=== PATIENT | male | born 1990 | race Two or more races ===

== ENCOUNTER 2021-04-08 12:36 | Emergency (ER) | payer OTHER, SELFPAY ==
[2021-04-08 12:44] VITALS: BP 136/75; PULSE 87; RESP 18; TEMP 36.8; O2SAT 97; BMI 42.5
--- NOTE | 2021-04-08 15:26 | ED_ITS ---
HPI - General Adult General Chief complaint: Skin/Abscess/Foreign Body Stated complaint: lump lt breast Time Seen by Provider: 04/08/21 15:25 Source: patient Mode of arrival: ambulatory Limitations: no limitations History of Present Illness HPI narrative: 30-year-old male is here today for complaining of left breast tenderness. Patient reports that he was seen in clinic in [facility] last week. 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 Patient denies any insect bite, hair follicle, piercing. He reports that the area last week was a very small about 3 centimetres just below the nipple. Today the area is much larger altogether 8 x 10 cm approximately. There is no drainage however he reports increased tenderness, redness and swelling. Patient denies fever, he is not diabetic. Patient denies any skin infections in the past. He was placed on Augmentin and was taking as ordered. Patient denies any other concerns. Related Data Previous Rx's Medication Instructions Recorded doxycycline hyclate 100 mg tablet 100 mg PO BID #20 tab 04/08/21 ibuprofen 600 mg tablet 600 mg PO Q8H PRN #20 tab 04/08/21 oxycodone 5 mg tablet 5 mg PO Q4-6H PRN #5 tab 04/08/21 Allergies Allergy/AdvReac Type Severity Reaction Status Date / Time vancomycin Allergy Itching Verified 04/08/21 17:32 Review of Systems Review of Systems: Constitutional : No Weight loss, No Fever, No Chills, No Night Sweats, No Fatigue, No Malaise ENT/Mouth : No Hearing loss, No Ear Pain, No Nasal Congestion, No Sinus Pain, No Hoarseness, No sore throat, No Rhinorrhea, No Swallowing Difficulty Eyes: No Eye Pain, No Swelling, No Redness, No Foreign Body, No Discharge, No Vision Changes Cardiovascular : No Chest Pain, No SOB, No Dyspnea on Exertion, No Orthopnea, No Edema, No Palpitations Respiratory : No Cough, No Sputum, No Wheezing, No Smoke Exposure, No Dyspnea Gastrointestinal : No Nausea, No Vomiting, No Diarrhea, No Constipation, No abdominal Pain, No Hematochezia, No Melena Genitourinary : no irregular bleeding, No Dysuria, No Urinary Frequency, No Hematuria, No Urinary Incontinence, No Urgency, No Flank Pain, No Urinary Flow Changes, No Hesitancy Musculoskeletal : No joint pain, No Myalgias, No Joint Swelling Skin : No Skin Lesions, No rash, left breast redness and swelling and tenderness Neuro : No Weakness, No Numbness, No Paresthesias, No Loss of Consciousness, No Dizziness, No Headache Yes all other systems are reviewed and are negative PMFSH Past Medical History Surgical History (Updated 04/08/21 @ 12:44 by Catrachita Chand RN) History of bladder surgery S/P appendectomy Social History Social History Alcohol intake: never Patient Tobacco Use Status: Never used Tobacco Physical Exam Vital Signs: Vital Signs: Last Vital Signs Temp 98.8 F 04/08/21 17:31 Pulse 66 04/08/21 17:31 Resp 16 04/08/21 17:31 BP 121/65 04/08/21 17:31 Pulse Ox 97 04/08/21 17:31 Body Mass Index 42.5 Const: General: healthy appearing, no acute distress and well developed Nutritional Appearance: well nourished Orientation/consciousness: patient oriented x3 HENMT: Head: Yes normal to inspection, Yes normocephalic and Yes atraumatic Neck: Neck: Yes normal visual inspection, Yes full ROM and Yes trachea midline Thyroid: Thyroid normal Chest: Other: Breast/axilla inspection: abnormal inspection of the breast (Left breast redness and swelling) Resp: Auscultation: clear to auscultation bilaterally Cardio: Rate: regular rate Rhythm: regular rhythm GI: Inspection: Yes normal to inspection and No distended Palpation (GI): No hepatosplenomegaly present Auscultation: normal bowel sounds Skin: Other: Left breast abscess General skin exam: elasticity normal, turgor normal and dry skin Neuro: General: patient oriented x3 Course Course Course Narrative: 30-year-old male is here today for left breast pain and tenderness. Treated last week with Augmentin for left breast abscess. Patient reports that the abscess was significantly much smaller. Area is getting bigger more inflamed and more tender. Denies any piercing, her follicle, injury. 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 Patient denies subjective fevers, malaise, diabetes. He does not look toxic. We will ordered blood cultures, will do bedside ultrasound, CBC, BMP. Medicate him for pain and will start him on Vanco. Most likely this is MRSA as a commanded was not effective. Reevaluation(s) Reevaluation #1: Bedside ultrasound done significant abscess found we will send the pictures of the abscess as well as the ultrasound to on-call surgeon. Reevaluation #2: Spoke with on-call surgeon Dr. Tavera who will be coming to I/D the the abscess. Patient was moved to main ED. Reevaluation #3: On-call provider at the bedside. I/D in process. Moderate amount of drainage removed. Area will be packed. Patient will be medicated with doxycycline. Culture of the aspiration will be sent to lab. Blood cultures canceled. Patient will be sent home to follow-up with wound care Consultations Consultation #1: Patient is having allergic reaction to vancomycin. IV infusion stopped. Benadryl ordered. Procedures Procedure Narrative Procedure Narrative: Bedside ultrasound done significant abscess found. Copy of the picture sent to surgeon on-call. Spoke to surgeon who will come in and drain the abscess. Medical Decision Making Lab Data Result diagrams: 04/08/21 16:14 04/08/21 16:14 Labs: Lab Results 04/08/21 04/08/21 Range/Units 16:14 16:14 WBC 9.5 (4.8-10.8) X10*3/uL RBC 5.46 (4.60-5.80) X10*6/uL Hgb 14.9 (14.0-18.0) g/dl Hct 43.4 (42-52) % MCV 79.5 L (80-98) fL MCH 27.3 (27.0-33.0) pg MCHC 34.3 (31.0-36.0) g/dl RDW 14.3 (11.0-16.0) % Plt Count 277 (160-400) X10*3/uL MPV 9.6 (9.4-12.4) fL Immature Gran % (Auto) 0.2 (0.0-0.4) % Neut % (Auto) 62.6 (45-73) % Lymph % (Auto) 27.8 (20-40) % [place] % (Auto) 8.3 (2-11) % Eos % (Auto) 0.8 (0-4) % Baso % (Auto) 0.3 (0-2) % Lymph # (Auto) 2.6 (1.2-4.9) X10*3/uL [place] # (Auto) 0.8 (0.1-1.2) X10*3/uL Eos # (Auto) 0.1 (0.0-0.4) X10*3/uL Baso # (Auto) 0.0 (0.0-0.2) X10*3/uL Abs Immat Gran (auto) 0.02 (0.00-0.03) X10*3/uL Absolute Neuts (auto) 6.0 (2.0-8.3) X10*3/uL Absolute Nucleated RBC 0.000 (0.0-0.012) X10*3/uL Nucleated RBC % (auto) 0.0 (0.0-0.2) /100WBC Sodium 136 (135-145) mmol/L Potassium 3.7 (3.3-5.1) mmol/L Chloride 103 (96-108) mmol/L Carbon Dioxide 25 (22-29) mmol/L Anion Gap 12 (12-20) BUN 8 L (9-16) mg/dL Creatinine 0.83 (0.5-1.4) mg/dL Estim Creat Clear Calc 145.5 Estimated GFR > 60 Random Glucose 116 H (60-115) mg/dL Calcium 9.3 (8.4-10.2) mg/dL Discharge Plan Discharge Clinical Impression: Breast abscess in male Cellulitis Qualifiers: Site of cellulitis: other site Qualified Code(s): L03.818 - Cellulitis of other sites Patient Disposition: Home, Self-Care Instructions: Abscess (ED), Abscess Incision and Drainage (DC) Additional Instructions: You were seen here today for infection of the left breast. The abscess was drained and packed. You were started on antibiotic. Please follow-up with Wound Center on Saturday. You may return to emergency department if you symptoms will get worse or if you experience any additional concerning symptoms. The drainage was sent to lab to get tested. You might get phone call if the antibiotic will need be changed. Please make sure that you finish all of the antibiotics. Observe for increased redness, follow older, pain, fever or chills. Prescriptions: New doxycycline hyclate 100 mg tablet 100 mg PO BID Qty: 20 RF: 0 ibuprofen 600 mg tablet 600 mg PO Q8H PRN (Reason: pain) Qty: 20 RF: 0 oxycodone 5 mg tablet 5 mg PO Q4-6H PRN (Reason: pain) Qty: 5 RF: 0 Referrals: Cristela Tavera MD [Physician] - 2 days Stand Alone Forms: Work/School Release Interventions: ED Discharge Assessment Last Done: 04/08/21 17:51 Discharge Date/Time: 04/08/21 17:57
[2021-04-08 16:19] LABS: MANUAL DIFF FLAG NO
[2021-04-08 16:20] LABS: Basophils Percent Auto 0.3 % (0-2); Eosinophils Absolute Auto 0.1 X10*3/uL (0.0-0.4); Eosinophils Percent Auto 0.8 % (0-4); Hematocrit 43.4 % (42-52); Hemoglobin 14.9 g/dl (14.0-18.0); Imm Gran Abs Auto 0.02 X10*3/uL (0.00-0.03); Imm Gran Pct Auto 0.2 % (0.0-0.4); Lymphocytes Absolute Auto 2.6 X10*3/uL (1.2-4.9); Lymphocytes Percent Auto 27.8 % (20-40); Mean Corpuscular HGB Conc 34.3 g/dl (31.0-36.0); Mean Corpuscular Hemoglobin 27.3 pg (27.0-33.0); Mean Corpuscular Volume 79.5 fL (80-98); Mean Platelet Volume 9.6 fL (9.4-12.4); Monocytes Absolute Auto 0.8 X10*3/uL (0.1-1.2); Monocytes Percent Auto 8.3 % (2-11); Neutrophils Percent Auto 62.6 % (45-73); Platelet Count 277 X10*3/uL (160-400); Red Blood Count 5.46 X10*6/uL (4.60-5.80); Red Cell Distribution Width 14.3 % (11.0-16.0); White Blood Count 9.5 X10*3/uL (4.8-10.8)
[2021-04-08] MEDS: vancomycin HCL 1,500 MG in 0.9 % Sodium Chloride 500 ML 333.33 MG IV (16:28)
[2021-04-08] MEDS: Ketorolac Tromethamine 15 MG/ML VIAL 30 MG IVPUSH (16:28)
[2021-04-08] MEDS: Lidocaine HCl 2%/Epi 1:100,000 20 ML VIAL INFILTRATI (16:29)
[2021-04-08 16:37] LABS: Anion Gap 12 (12-20); Blood Urea Nitrogen 8 mg/dL (9-16); Calcium 9.3 mg/dL (8.4-10.2); Carbon Dioxide 25 mmol/L (22-29); Chloride 103 mmol/L (96-108); Creatinine Clr Calc Pharmacy 145.5; Estimated Glomerular Filt Rate > 60; Glucose Random 116 mg/dL (60-115); Potassium 3.7 mmol/L (3.3-5.1); Sodium 136 mmol/L (135-145)
--- NOTE | 2021-04-08 16:45 | PC.NURSE ---
iv inserted, labs drawn, pt medicated for pain, iv antibiotics running, surgeon at bedside to do I&D.
--- NOTE | 2021-04-08 17:09 | PM.CNGS ---
History of Present Illness Consult details Consult date: 04/08/21 Requesting physician: Roberta Mckenzie Narrative: 30 year old male with left breast abscess -? etiology - no puiercing no injections etc. was treated with po augmentin for a week but worsened and now here with large area of cellulitis and abscess. He has not had MRSA before. u/s here shows abscess. no fevers or chills. complains of pain in the area PMFSH Past Medical History Cognitive capacity: noncontributory Family History Pertinent family history: noncontributory Surgical History Surgical History (Updated 04/08/21 @ 12:44 by Catrachita Chand RN) History of bladder surgery S/P appendectomy Social History Social History Alcohol intake: never Patient Tobacco Use Status: Never used Tobacco Use of substances other than those prescribed or required for medical reasons: No Advance Directives: No Meds Allergies Allergy/AdvReac Type Severity Reaction Status Date / Time No Known Allergies Allergy Verified 04/08/21 12:43 Active Medications: Current Medications Vancomycin HCl 1,500 mg/ (Sodium Chloride) 500 mls @ 333.333 mls/hr IV ONCE ONE Stop: 04/08/21 17:23 Last Admin: 04/08/21 16:28 Dose: 333.33 mls/hr Documented by: Physical Exam Vital Signs: Vital Signs: Last Vital Signs Temp 98.2 F 04/08/21 12:44 Pulse 87 04/08/21 12:44 Resp 18 04/08/21 12:44 BP 136/75 04/08/21 12:44 Pulse Ox 97 04/08/21 12:44 Body Mass Index 42.5 Skin: Other: left nipple area abscess with surrounding cellulits tender - [id number] Results Labs Result diagrams: 04/08/21 16:14 04/08/21 16:14 Labs: Abnormal lab results 04/08/21 04/08/21 Range/Units 16:14 16:14 MCV 79.5 L (80-98) fL BUN 8 L (9-16) mg/dL Random Glucose 116 H (60-115) mg/dL Short CBC 04/08/21 Range/Units 16:14 WBC 9.5 (4.8-10.8) X10*3/uL Hgb 14.9 (14.0-18.0) g/dl Hct 43.4 (42-52) % Plt Count 277 (160-400) X10*3/uL BMP 04/08/21 16:14 Sodium 136 Potassium 3.7 Chloride 103 Carbon Dioxide 25 BUN 8 L Creatinine 0.83 Calcium 9.3 All other labs normal. Assessment and Plan (1) Breast abscess in male: Status: Acute 30 year old male with left breast abscess worsened on augmentin ? MRSA infection - Iand D at bedside with cx of purulent drainage. plan to keep packing in until saturday when he can remove it in the shower and just cover with gauze. he can replace the overlying dressing daily and as needed. take full 10 day course of antibx - treat as expecting MRSA infection fu cx results can fu in wound care or general surgery office sponge bath until saturday when showers and get the area wet and remove the packing. Procedures Date of Service Date of Service: 04/08/21 Abscess I/D Consent for Procedure: Elective - informed consent obtained Site: chest Side (if applicable): left Sedation/analgesia: none Anesthetic used: with epi Technique: incised with #11 blade Amount of fluid (mL): 8 Irrigation: Yes Packing used?: plain Additional comments: some purulent drainage obtained and irrigated and probed under breast so cavity was clean - packing inserted there was a second area opened and probed laterally but not much purulence compared to the above incision area in the nipple - areolar junction region complex abscess drainage
[2021-04-08] MEDS: diphenhydrAMINE HCL 50 MG/ML VIAL IVPUSH (17:30)
--- NOTE | 2021-04-08 17:30 | PC.NURSE ---
pt reporting itchy head while receiving Vanco, infusion stopped and Benadryl given per [facility] [employer]. Denies other sx or SOB. VSS
[2021-04-08 17:31] VITALS: BP 121/65; PULSE 66; RESP 16; TEMP 37.1; O2SAT 97
== END 2021-04-08 17:57 | disposition home or self-care (01) ==
PROVIDERS: Nurse Practitioner Family; Emergency Provider Emergency Medicine
DX: N61.1 Abscess of the breast and nipple (principal); Z79.899 Other long term (current) drug therapy
CPT/HCPCS: 36415; 80048; 85025; 87040; 87071; 87073; 87077; 87186; 87205; 96365; 96375; 99284; J1200; J1885; J3370

== ENCOUNTER 2021-09-07 08:11 | Emergency (ER) | payer MEDICAID, SELFPAY ==
[2021-09-07 08:15] VITALS: BP 110/70; PULSE 77; RESP 16; TEMP 36.4; O2SAT 96; BMI 41.6
--- NOTE | 2021-09-07 09:25 | ED_ITS ---
HPI - Nausea/Vomiting/Diarrhea General Chief complaint: Nausea/Vomiting/Diarrhea Stated complaint: diarrhea,headache Time Seen by Provider: 09/07/21 09:21 Source: patient Mode of arrival: ambulatory Limitations: no limitations History of Present Illness HPI Narrative: 31-year-old male previously healthy here with reports of headache, body aches, diarrhea, runny nose, cough with waking. Patient denies any fever, vomiting, abdominal pain, difficulty breathing or chest pain. Associated nausea: No Related Data Previous Rx's Medication Instructions Recorded doxycycline hyclate 100 mg tablet 100 mg PO BID #20 tab 04/08/21 ibuprofen 600 mg tablet 600 mg PO Q8H PRN #20 tab 04/08/21 oxycodone 5 mg tablet 5 mg PO Q4-6H PRN #5 tab 04/08/21 ibuprofen 600 mg tablet 600 mg PO TID PRN #20 tab 09/07/21 oseltamivir 75 mg capsule (Tamiflu) 75 mg PO Q12H 5 Days #10 cap 09/07/21 Allergies Allergy/AdvReac Type Severity Reaction Status Date / Time vancomycin Allergy Itching Verified 04/08/21 17:32 Review of Systems Review of Systems: Yes all other systems are reviewed and are negative Constitutional: Constitutional: Reports no additional constitutional com plaints, Reports body ache(s), Denies chills, Denies fever(s), Reports headache(s) and Denies weakness Eyes: Eyes: Reports no additional eye complaints and Denies change in vision ENT: Reports system reviewed and no additional complaints, except as documented, Denies dizziness, Reports headache(s), Denies nasal congestion, Reports nasal discharge and Denies neck pain Cardiovascular: Cardiovascular: Reports no additional cardiovascular complaints, Denies chest pain, Denies leg edema and Denies dyspnea Respiratory: Respiratory: Reports no additional respiratory complaints, Reports cough and Denies dyspnea Gastrointestinal: Gastrointestinal: Reports no additional gastrointestinal complaints, Denies abdominal pain, Reports diarrhea, Denies nausea and Denies vomiting Genitourinary: Genitourinary: Denies urinary incontinence Musculoskeletal: Musculoskeletal: Reports no additional musculoskeletal complaints, Denies back pain, Denies arthralgias, Denies joint swelling, Denies neck pain, Denies numbness and Denies tingling Integumentary/Breasts: Skin/Breast: Reports system reviewed and no additional complaints, except as docu and Denies rash Neurologic: Reports system reviewed and no additional complaints, except as documented, Denies Abnormal speech present, Denies dizziness, Reports headache(s), Denies numbness, Denies tingling and Denies weakness PMFSH Past Medical History Attestation statement: The following information was validated with the patient. Source: old records reviewed and nursing notes reviewed Surgical History History of bladder surgery S/P appendectomy Social History Social History Alcohol intake: never Patient Tobacco Use Status: Never used Tobacco Advance Directives: No Advance Directives Information Provided: No Physical Exam Vital Signs: Vital Signs: Last Vital Signs Temp 97.5 F 09/07/21 08:15 Pulse 77 09/07/21 08:15 Resp 16 09/07/21 08:15 BP 110/70 09/07/21 08:15 Pulse Ox 96 09/07/21 08:15 BMI result Body Mass Index 41.6 Const: General: cooperative, healthy appearing, comfortable and no acute distress Orientation/consciousness: patient oriented x3 Limitations: no limitations HEENT: Head: Yes normal to inspection Ears: hearing grossly normal bilaterally and TM's normal bilaterally General nose exam: Normal external nose present Face and sinus: Yes normal facial exam Mouth: Normal oral and palatal mucosa present Throat: Yes posterior oropharynx normal, Yes tonsils normal and Yes uvula midline Eyes: General: appearance normal, both eyes and all related structures Pupils: Equal, round and reactive pupils present Neck: Neck: Yes normal visual inspection, Yes full ROM and Yes no lymphadenop athy Chest: Chest palpation & inspection: normal inspection of the chest Resp: Effort & Inspection: normal respiratory effort Auscultation: clear to auscultation bilaterally Cardio: Rate: regular rate Rhythm: regular rhythm Peripheral pulses: Peripheral pulses 2+ throughout GI: Inspection: Yes normal to inspection Palpation (GI): Soft to palpation and nontender Auscultation: normal bowel sounds Back/Spine/Pelvis: Thoracic/Lumbar Spine: thoracic and lumbar spine normal to inspection Skin: General skin exam: no rashes or lesions noted Neuro: General: patient oriented x3, no focal motor deficits and normal sensation to monofilament Cranial nerves: Yes Equal, round and reactive pupils present Cognition (Neuro): normal cognition Speech: No Abnormal speech present Gait exam (Neuro): Normal gait present Motor exam (neuro): 5/5 motor strength present throughout Extrem: General: Yes normal to inspection Course Course Course Narrative: 31-year-old male here with flu-like symptoms since waking. Will check flu and COVID screening. MDM - Nausea/Vomiting/Diarrhea Medical Records Attestation: I reviewed the patient's medical records. Lab Data Attestation: I reviewed the patient's lab results. Labs: Lab Results 09/07/21 09/07/21 Range/Units 09:48 09:48 COVID-19 ([facility]) Negative (Negative) COVID-19 Clin Com See Note Influenza Type A ([facility]) Positive A (Negative) Influenza Type B ([facility]) Negative (Negative) Influenza A & B Note See Note Discharge Plan Discharge Clinical Impression: Influenza Patient Disposition: Home, Self-Care Instructions: Influenza (DC) Additional Instructions: COVID testing is negative Increase fluids, rest Take Motrin or Tylenol as needed for pain or fever Prescriptions: New oseltamivir [Tamiflu] 75 mg capsule 75 mg PO Q12H 5 Days Qty: 10 0RF ibuprofen 600 mg tablet 600 mg PO TID PRN (Reason: fever or pain) Qty: 20 0RF No Action doxycycline hyclate 100 mg tablet 100 mg PO BID Qty: 20 0RF ibuprofen 600 mg tablet 600 mg PO Q8H PRN (Reason: pain) Qty: 20 0RF oxycodone 5 mg tablet 5 mg PO Q4-6H PRN (Reason: pain) Qty: 5 0RF Rx Instructions: Patient may request fewer tablets than prescribed Referrals: [facility] [Primary Care Provider] - 5 days Stand Alone Forms: Work/School Release
[2021-09-07 10:09] LABS: Influenza A Positive (Negative); Influenza B2 Negative (Negative)
[2021-09-07] MEDS: Ibuprofen 600 MG TABLET PO (10:24)
[2021-09-07 10:28] LABS: COVID-19 Test Negative (Negative); IDNOW Serial# 55D5AD1C
== END 2021-09-07 10:48 | disposition home or self-care (01) ==
PROVIDERS: Nurse Practitioner Family; Emergency Provider Emergency Medicine
DX: J11.1 Influenza due to unidentified influenza virus with other respiratory manifestations (principal); R51.9 Headache, unspecified; Z20.822 Contact with and (suspected) exposure to COVID-19
CPT/HCPCS: 87502; 87635; 99283; 99284

== ENCOUNTER 2022-01-19 07:59 | Emergency (ER) | payer MEDICAID, SELFPAY ==
--- NOTE | ~2022-01-19 | CT_ITS ---
EXAMINATION: CT ABDOMEN AND PELVIS WITHOUT CONTRAST CLINICAL INFORMATION: Right-sided abdominal pain. COMPARISON: None TECHNIQUE: Multidetector volumetric imaging was performed from the superior aspect of the liver through the pubic symphysis. Sagittal and coronal reformatted images were obtained on the technologist's workstation. Lack of intravenous and oral contrast limits visceral evaluation. This CT examination was performed using dose optimization techniques as appropriate, variously including the following: *Automated exposure control *Adjustment of mA and/or kV according to patient size (this includes techniques or standardized protocols for targeted exams where dose is matched to indication/reason for exam; i.e. extremities or head) *Use of iterative reconstruction technique DLP: 848 mGy-cm FINDINGS: LUNG BASES: The visualized lung bases are unremarkable. LIVER, GALLBLADDER, AND BILIARY TREE: Diffuse decreased hepatic attenuation without focal abnormality. Status post cholecystectomy. PANCREAS: Unremarkable. SPLEEN: Unremarkable. ADRENAL GLANDS: Unremarkable. KIDNEYS AND URETERS: Right kidney punctate calculus in the lower pole. No left nephrolithiasis. No hydronephrosis bilaterally. BLADDER: Minimally distended limiting evaluation without overt abnormality. GASTROINTESTINAL TRACT: The stomach and small bowel are unremarkable. The patient is status post appendectomy with post surgical changes in the right lower quadrant without surrounding abnormality. The colon and rectum are unremarkable. ABDOMINAL WALL: No significant hernia is appreciated. LYMPH NODES: No lymphadenopathy. VASCULAR: Unremarkable. PELVIC VISCERA: Unremarkable. OSSEOUS STRUCTURES: Unremarkable. CT/CT abdomen pelvis wo con IMPRESSION: 1. No acute intra-abdominal/pelvic abnormality to explain the patient's symptoms. Status post appendectomy without right lower quadrant abnormality. 2. Punctate nonobstructing right lower pole intrarenal calculus. 3. Hepatic steatosis.
[2022-01-19 08:14] VITALS: BP 134/83; PULSE 81; RESP 18; TEMP 36.2; O2SAT 97; BMI 40.1
--- NOTE | 2022-01-19 08:46 | ED_ITS ---
HPI - Abdominal Pain General Chief Complaint: Abdominal Pain Stated Complaint: R side abd pain/lower back pain Time Seen by Provider: 01/19/22 08:34 Source: patient Mode of arrival: ambulatory Limitations: no limitations History of Present Illness HPI narrative: 31-year-old male status post cholecystectomy, status appendectomy here with reports of 4 days of right-sided abdominal pain with no radiation. Pain is c onstant, sharp, uncomfortable per patient. He has associated nausea. No vomiting, fever, urinary symptoms, diarrhea or constipation. Related Data Previous Rx's Medication Instructions Recorded doxycycline hyclate 100 mg tablet 100 mg PO BID #20 tabs 04/08/21 ibuprofen 600 mg tablet 600 mg PO Q8H PRN pain #20 tabs 04/08/21 oxycodone 5 mg tablet 5 mg PO Q4-6H PRN pain #5 tabs 04/08/21 ibuprofen 600 mg tablet 600 mg PO TID PRN fever or pain 09/07/21 #20 tabs oseltamivir 75 mg capsule (Tamiflu) 75 mg PO Q12H 5 days #10 caps 09/07/21 omeprazole 40 mg capsule,delayed 40 mg PO DAILY #30 caps 01/19/22 release Allergies Allergy/AdvReac Type Severity Reaction Status Date / Time vancomycin Allergy Itching Verified 04/08/21 17:32 Review of Systems Review of Systems Yes all other systems are reviewed and are negative Constitutional: Reports no additional constitutional complaints, Denies body ache(s), Denies chills, Denies fever(s), Denies headache(s) and Denies weakness Eyes: Reports no additional eye complaints and Denies change in vision Reports system reviewed and no additional complaints, except as documented, Denies dizziness, Denies headache(s), Denies nasal congestion, Denies nasal discharge and Denies neck pain Cardiovascular: Reports no additional cardiovascular complaints, Denies chest pain, Denies leg edema and Denies dyspnea Respiratory: Reports no additional respiratory complaints, Denies cough and Den ies dyspnea Gastrointestinal: Reports no additional gastrointestinal complaints, Reports abdominal pain, Denies diarrhea, Reports nausea and Denies vomiting Genitourinary: Denies urinary incontinence Musculoskeletal: Reports no additional musculoskeletal complaints, Denies back pain, Denies arthralgias, Denies joint swelling, Denies neck pain, Denies numbness and Denies tingling Skin/Breast: Reports system reviewed and no additional complaints, except as docu and Denies rash Reports system reviewed and no additional complaints, except as documented, Denies dizziness, Denies headache(s), Denies numbness, Denies tingling and Denies weakness PMFSH Past Medical History Attestation statement: The following information was validated with the patient. Source: old records reviewed and nursing notes reviewed Surgical History History of bladder surgery S/P appendectomy Social History Social History Alcohol intake: never Patient Tobacco Use Status: Never used Tobacco Use of substances other than those prescribed or required for medical reasons: No Advance Directives: No Advance Directives Information Provided: No Physical Exam ED Vital Signs: Vital Signs - 24 hr 01/19/22 08:14 01/19/22 10:38 Temperature 97.2 F Pulse Rate 81 64 Respiratory Rate 18 18 Blood Pressure 134/83 117/80 Pulse Oximetry 97 97 Oxygen Delivery Method Room Air Room Air BMI result Body Mass Index 40.1 Const General: cooperative, healthy appearing, comfortable and no acute distress Orientation/consciousness: patient oriented x3 Limitations: no limitations HENMT Head: Yes normal to inspection Ears: hearing grossly normal bilaterally Eyes General: appearance normal, both eyes and all related structures Pupils: Equal, round and reactive pupils present Neck Neck: Yes normal visual inspection, Yes full ROM, Yes no lymphadenopathy and Yes no meningeal signs Chest Chest palpation & inspection: normal inspection of the chest Resp Effort & Inspection: normal respiratory effort Auscultation: clear to auscultation bilaterally Cardio Rate: regular rate Rhythm: regular rhythm Peripheral pulses: Peripheral pulses 2+ throughout GI Inspection: Yes normal to inspection Palpation (GI): Soft to palpation and Tenderness to palpation present (GI) (Right-sided no rebound or guarding) Auscultation: normal bowel sounds General: Yes no CVA tenderness Back/Spine/Pelvis Back: no CVA tenderness Thoracic/Lumbar Spine: thoracic and lumbar spine normal to inspection Skin General skin exam: no rashes or lesions noted Neuro General: patient oriented x3, moves all extremities and no meningeal signs Cranial nerves: Yes CN's II-XII intact bilaterally, Yes Equal, round and reactive pupils present and Yes Bilaterally intact EOM present Cognition (Neuro): normal cognition Gait exam (Neuro): Normal gait present Motor exam (neuro): 5/5 motor strength present throughout Sensory Exam: Normal double simultaneous stimulation for sensation Extrem General: Yes normal to inspection, Yes no pedal edema and Yes no calf tenderness Course Course Course Narrative: Labs show no acute finding. Urine is negative for infection. CT shows no acute intra-abdominal pathology. Patient has improvement with Toradol. He is tolerating p.o.. Discussed with patient that we can start a PPI, follow a bland diet. Recommend follow-up with primary care. Reviewed worrisome signs and symptoms of when to return to the emergency department. Comfortable discharge home. MDM - Abdominal Pain MDM Narrative Medical decision making narrative: 31-year-old male here with right-sided abdominal pain for 4 days with associated nausea. On exam patient does have some tenderness over the abdomen no rebound or guarding. Normal bowel sounds. Patient is status post cholecystectomy and appendectomy. Consider renal colic, retained stone. Will obtain labs, UA, CT. Will provide analgesia and reassess Medical Records Attestation: I reviewed the patient's medical records. Lab Data Attestation: I reviewed the patient's lab results. Result diagrams: 01/19/22 09:18 01/19/22 09:18 Labs: Lab Results 01/19/22 01/19/22 01/19/22 Range/Units 09:18 09:18 09:18 WBC 8.3 (4.8-10.8) X10*3/uL RBC 5.77 (4.60-5.80) X10*6/uL Hgb 15.6 (14.0-18.0) g/dl Hct 46.0 (42.0-52.0) % MCV 79.7 L (80.0-98.0) fL MCH 27.0 (27.0-33.0) pg MCHC 33.9 (31.0-36.0) g/dl RDW 14.2 (11.0-16.0) % Plt Count 250 (160-400) X10*3/uL MPV 9.4 (9.4-12.4) fL Immature Gran % (Auto) 0.4 (0.0-0.4) % Neut % (Auto) 62.3 (45-73) % Lymph % (Auto) 26.5 (20-40) % [place] % (Auto) 9.2 (2-11) % Eos % (Auto) 1.0 (0-4) % Baso % (Auto) 0.6 (0-2) % Lymph # (Auto) 2.2 (1.2-4.9) X10*3/uL [place] # (Auto) 0.8 (0.1-1.2) X10*3/uL Eos # (Auto) 0.1 (0.0-0.4) X10*3/uL Baso # (Auto) 0.1 (0.0-0.2) X10*3/uL Abs Immat Gran (auto) 0.03 (0.00-0.03) X10*3/uL Absolute Neuts (auto) 5.2 (2.0-8.3) x10*3/uL Absolute Nucleated RBC 0.000 (0.0-0.012) X10*3/uL Nucleated RBC % (auto) 0.0 (0.0-0.2) /100WBC Sodium 139 (135-145) mmol/L Potassium 4.2 (3.3-5.1) mmol/L Chloride 105 (96-108) mmol/L Carbon Dioxide 24 (22-29) mmol/L Anion Gap 14 (12-20) BUN 15 (9-16) mg/dL Creatinine 0.82 (0.5-1.4) mg/dL Estim Creat Clear Calc 141.6 Estimated GFR > 60 Random Glucose 115 (60-115) mg/dL Calcium 9.1 (8.4-10.2) mg/dL Total Bilirubin 1.0 (0.0-1.0) mg/dL Direct Bilirubin 0.3 (0.0-0.5) mg/dL AST 19 (5-37) U/L ALT 26 (0-40) U/L Alkaline Phosphatase 91 (39-117) U/L Total Protein 7.6 (6.5-8.0) g/dL Albumin 4.3 (3.5-5.0) g/dL Urine Color YELLOW Urine Appearance HAZY Urine pH 6.5 (5.0-8.0) Ur Specific [place] 1.025 (1.005-1.025) Urine Protein TRACE (NEG-TRACE) MG/DL Urine Glucose (UA) NEG (NEG) MG/DL Urine Ketones NEG (NEG) MG/DL Urine Blood NEG (NEG) Urine Nitrite NEG (NEG) Ur Leukocyte Esterase NEG (NEG) Imaging Data CT scan - abdomen: Attestation: I personally reviewed and interpreted this imaging study as follows: Radiologist's impression: FINDINGS: LUNG BASES: The visualized lung bases are unremarkable.? LIVER, GALLBLADDER, AND BILIARY TREE: Diffuse decreased hepatic attenuation without focal abnormality. Status post cholecystectomy. PANCREAS: Unremarkable.? SPLEEN: Unremarkable.? ADRENAL GLANDS: Unremarkable.? KIDNEYS AND URETERS: Right kidney punctate calculus in the lower pole. No left nephrolithiasis. No hydronephrosis bilaterally. BLADDER: Minimally distended limiting evaluation without overt abnormality.? GASTROINTESTINAL TRACT: The stomach and small bowel are unremarkable. The patient is status post appendectomy with post surgical changes in the right lower quadrant without surrounding abnormality. The colon and rectum are unremarkable.? ABDOMINAL WALL: No significant hernia is appreciated.? LYMPH NODES: No lymphadenopathy. VASCULAR: Unremarkable. PELVIC VISCERA: Unremarkable.? OSSEOUS STRUCTURES: Unremarkable.? CT/CT abdomen pelvis wo con IMPRESSION: ? 1. No acute intra-abdominal/pelvic abnormality to explain the patient's symptoms. Status post appendectomy without right lower quadrant abnormality. 2. Punctate nonobstructing right lower pole intrarenal calculus. 3. Hepatic steatosis. ? ? Discharge Plan Discharge Clinical Impression: Abdominal pain Patient Disposition: Home, Self-Care Instructions: Abdominal Pain (ED) Additional Instructions: [place] diet Take omeprazole for 30 days. Follow-up with PCP this month Prescriptions: New omeprazole 40 mg capsule,delayed release(DR/EC) 40 mg PO DAILY Qty: 30 0RF No Action doxycycline hyclate 100 mg tablet 100 mg PO BID Qty: 20 0RF ibuprofen 600 mg tablet 600 mg PO Q8H PRN (Reason: pain) Qty: 20 0RF oxycodone 5 mg tablet 5 mg PO Q4-6H PRN (Reason: pain) Qty: 5 0RF Rx Instructions: Patient may request fewer tablets than prescribed oseltamivir [Tamiflu] 75 mg capsule 75 mg PO Q12H 5 Days Qty: 10 0RF ibuprofen 600 mg tablet 600 mg PO TID PRN (Reason: fever or pain) Qty: 20 0RF Referrals: Physician,Unknown J [Primary Care Provider] - Stand Alone Forms: Work/School Release Interventions: ED Discharge Assessment Last Done: 01/19/22 10:54 Discharge Date/Time: 01/19/22 10:55
[2022-01-19 09:25] LABS: Appearance Urine HAZY; Basophils Absolute Auto 0.1 X10*3/uL (0.0-0.2); Basophils Percent Auto 0.6 % (0-2); Color Urine YELLOW; Eosinophils Absolute Auto 0.1 X10*3/uL (0.0-0.4); Glucose Urine UA NEG (NEG); Hemoglobin 15.6 g/dl (14.0-18.0); Imm Gran Abs Auto 0.03 X10*3/uL (0.00-0.03); Imm Gran Pct Auto 0.4 % (0.0-0.4); Leukocyte Esterase Urine NEG (NEG); Lymphocytes Absolute Auto 2.2 X10*3/uL (1.2-4.9); Lymphocytes Percent Auto 26.5 % (20-40); MANUAL DIFF FLAG NO; Mean Corpuscular HGB Conc 33.9 g/dl (31.0-36.0); Mean Corpuscular Volume 79.7 fL (80.0-98.0); Mean Platelet Volume 9.4 fL (9.4-12.4); Monocytes Absolute Auto 0.8 X10*3/uL (0.1-1.2); Monocytes Percent Auto 9.2 % (2-11); Neutrophils Absolute Auto 5.2 x10*3/uL (2.0-8.3); Neutrophils Percent Auto 62.3 % (45-73); Nitrite Urine NEG (NEG); PH 6.5 (5.0-8.0); Platelet Count 250 X10*3/uL (160-400); Red Blood Count 5.77 X10*6/uL (4.60-5.80); Red Cell Distribution Width 14.2 % (11.0-16.0); Specific Gravity - Urine 1.025 (1.005-1.025); Urine Blood NEG (NEG); Urine Ketones NEG (NEG); Urine Protein TRACE MG/DL (NEG-TRACE); White Blood Count 8.3 X10*3/uL (4.8-10.8)
[2022-01-19] MEDS: Ketorolac Tromethamine 60 MG/2 ML VIAL IM (09:25)
[2022-01-19 09:40] LABS: Alanine Aminotransferase 26 U/L (0-40); Albumin Level 4.3 g/dL (3.5-5.0); Alkaline Phosphatase 91 U/L (39-117); Anion Gap 14 (12-20); Aspartate Amino Transferase 19 U/L (5-37); Bilirubin Direct 0.3 mg/dL (0.0-0.5); Blood Urea Nitrogen 15 mg/dL (9-16); Calcium 9.1 mg/dL (8.4-10.2); Carbon Dioxide 24 mmol/L (22-29); Chloride 105 mmol/L (96-108); Creatinine Clr Calc Pharmacy 141.6; Estimated Glomerular Filt Rate > 60; Glucose Random 115 mg/dL (60-115); Potassium 4.2 mmol/L (3.3-5.1); Sodium 139 mmol/L (135-145); Total Protein 7.6 g/dL (6.5-8.0)
[2022-01-19 10:38] VITALS: BP 117/80; PULSE 64; RESP 18; O2SAT 97
== END 2022-01-19 10:55 | disposition home or self-care (01) ==
PROVIDERS: Nurse Practitioner Family; Emergency Provider Emergency Medicine
DX: R10.31 Right lower quadrant pain (principal); M54.50 Low back pain, unspecified; Z20.822 Contact with and (suspected) exposure to COVID-19; Z79.899 Other long term (current) drug therapy
CPT/HCPCS: 36415; 74176; 80048; 80076; 81003; 85025; 96372; 99284; J1885

== ENCOUNTER 2022-04-25 16:07 | Emergency (ER) | payer MEDICAID, SELFPAY ==
--- NOTE | ~2022-04-25 | XR_ITS ---
EXAMINATION: XR CHEST CLINICAL INFORMATION: Chest pain COMPARISON: None TECHNIQUE: Frontal view of the chest was obtained. FINDINGS: No significant abnormality is noted involving the heart, lungs, mediastinum, bony thorax or soft tissues. XR/XR chest 1V IMPRESSION: Unremarkable examination.
--- NOTE | 2022-04-25 16:11 | ECG_ITS ---
Test Reason : CHEST PAIN Blood Pressure : / mmHG Vent. Rate : 084 BPM Atrial Rate : 084 BPM P-R Int : 136 ms QRS Dur : 092 ms QT Int : 352 ms P-R-T Axes : 030 099 021 degrees QTc Int : 415 ms Normal sinus rhythm Rightward axis Intra-ventricular conduction delay Borderline ECG No previous ECGs available Referred By: Generic ED Physician Electronically Signed By:CECILIA MILLER MD
[2022-04-25 17:19] VITALS: BP 135/72; PULSE 84; RESP 16; TEMP 36.3; O2SAT 95; BMI 38.9
--- NOTE | 2022-04-25 17:22 | ED.CHESTPAIN ---
HPI - Chest Pain General Chief Complaint: Chest Pain Stated Complaint: chest pain, back pain, splinter? Time Seen by Provider: 04/25/22 21:02 Related Data Previous Rx's Medication Instructions Recorded doxycycline hyclate 100 mg tablet 100 mg PO BID #20 tabs 04/08/21 ibuprofen 600 mg tablet 600 mg PO Q8H PRN pain #20 tabs 04/08/21 oxycodone 5 mg tablet 5 mg PO Q4-6H PRN pain #5 tabs 04/08/21 ibuprofen 600 mg tablet 600 mg PO TID PRN fever or pain 09/07/21 #20 tabs oseltamivir 75 mg capsule (Tamiflu) 75 mg PO Q12H 5 days #10 caps 09/07/21 omeprazole 40 mg capsule,delayed 40 mg PO DAILY #30 caps 01/19/22 release Allergies Allergy/AdvReac Type Severity Reaction Status Date / Time vancomycin Allergy Itching Verified 04/25/22 17:20 PMFSH Past Medical History Surgical History History of bladder surgery S/P appendectomy Social History Social History Alcohol intake: never Patient Tobacco Use Status: Never used Tobacco Advance Directives: No Advance Directives Information Provided: Yes Physical Exam Vital Signs: Vital Signs: Last Vital Signs Temp 97.4 F 04/25/22 17:19 Pulse 84 04/25/22 17:19 Resp 16 04/25/22 17:19 BP 135/72 04/25/22 17:19 Pulse Ox 95 04/25/22 17:19 O2 Del Method 04/25/22 17:19 BMI result Body Mass Index 38.9 Course Course Course Narrative: [place]. Patient presents to the ED for LEft sided chest pain for 2months and back pain. no trauma. EKG and labs ordered. Covid swab ordered. patient well apppearing MDM - Chest Pain Lab Data Result diagrams: 04/25/22 17:25 04/25/22 17:25 Labs: Lab Results 04/25/22 04/25/22 04/25/22 Range/Units 17:25 17:25 17:25 WBC 8.3 (4.8-10.8) X10*3/uL RBC 5.94 H (4.60-5.80) X10*6/uL Hgb 15.7 (14.0-18.0) g/dl Hct 48.4 (42.0-52.0) % MCV 81.5 (80.0-98.0) fL MCH 26.4 L (27.0-33.0) pg MCHC 32.4 (31.0-36.0) g/dl RDW 13.9 (11.0-16.0) % Plt Count 284 (160-400) X10*3/uL MPV 9.7 (9.4-12.4) fL Immature Gran % (Auto) 0.2 (0.0-0.4) % Neut % (Auto) 59.3 (45-73) % Lymph % (Auto) 31.1 (20-40) % [place] % (Auto) 8.2 (2-11) % Eos % (Auto) 0.8 (0-4) % Baso % (Auto) 0.4 (0-2) % Lymph # (Auto) 2.6 (1.2-4.9) X10*3/uL [place] # (Auto) 0.7 (0.1-1.2) X10*3/uL Eos # (Auto) 0.1 (0.0-0.4) X10*3/uL Baso # (Auto) 0.0 (0.0-0.2) X10*3/uL Abs Immat Gran (auto) 0.02 (0.00-0.03) X10*3/uL Absolute Neuts (auto) 5.0 (2.0-8.3) x10*3/uL Absolute Nucleated RBC 0.000 (0.0-0.012) X10*3/uL Nucleated RBC % (auto) 0.0 (0.0-0.2) /100WBC PT 12.3 (10.0-13.1) SEC INR 1.1 (0.9-1.1) APTT 36.9 H (26.0-36.4) SEC Sodium 142 (135-145) mmol/L Potassium 4.7 (3.3-5.1) mmol/L Chloride 102 (96-108) mmol/L Carbon Dioxide 29 (22-29) mmol/L Anion Gap 16 (12-20) BUN 14 (9-16) mg/dL Creatinine 1.09 (0.5-1.4) mg/dL Estim Creat Clear Calc 104.7 Estimated GFR > 60 Random Glucose 90 (60-115) mg/dL Calcium 9.8 D (8.4-10.2) mg/dL Total Bilirubin 1.0 (0.0-1.0) mg/dL AST 20 (5-37) U/L ALT 25 (0-40) U/L Alkaline Phosphatase 80 (39-117) U/L Troponin I High Sens (<3.5-35.0) ng/L B-Natriuretic Peptide (<100) pg/mL Total Protein 7.7 (6.5-8.0) g/dL Albumin 4.5 (3.5-5.0) g/dL COVID-19 ([facility]) (Negative) COVID-19 Clin Com 04/25/22 04/25/22 04/25/22 Range/Units 17:25 17:25 17:25 WBC (4.8-10.8) X10*3/uL RBC (4.60-5.80) X10*6/uL Hgb (14.0-18.0) g/dl Hct (42.0-52.0) % MCV (80.0-98.0) fL MCH (27.0-33.0) pg MCHC (31.0-36.0) g/dl RDW (11.0-16.0) % Plt Count (160-400) X10*3/uL MPV (9.4-12.4) fL Immature Gran % (Auto) (0.0-0.4) % Neut % (Auto) (45-73) % Lymph % (Auto) (20-40) % [place] % (Auto) (2-11) % Eos % (Auto) (0-4) % Baso % (Auto) (0-2) % Lymph # (Auto) (1.2-4.9) X10*3/uL [place] # (Auto) (0.1-1.2) X10*3/uL Eos # (Auto) (0.0-0.4) X10*3/uL Baso # (Auto) (0.0-0.2) X10*3/uL Abs Immat Gran (auto) (0.00-0.03) X10*3/uL Absolute Neuts (auto) (2.0-8.3) x10*3/uL Absolute Nucleated RBC (0.0-0.012) X10*3/uL Nucleated RBC % (auto) (0.0-0.2) /100WBC PT (10.0-13.1) SEC INR (0.9-1.1) APTT (26.0-36.4) SEC Sodium (135-145) mmol/L Potassium (3.3-5.1) mmol/L Chloride (96-108) mmol/L Carbon Dioxide (22-29) mmol/L Anion Gap (12-20) BUN (9-16) mg/dL Creatinine (0.5-1.4) mg/dL Estim Creat Clear Calc Estimated GFR Random Glucose (60-115) mg/dL Calcium (8.4-10.2) mg/dL Total Bilirubin (0.0-1.0) mg/dL AST (5-37) U/L ALT (0-40) U/L Alkaline Phosphatase (39-117) U/L Troponin I High Sens < 3.5 (<3.5-35.0) ng/L B-Natriuretic Peptide 13 (<100) pg/mL Total Protein (6.5-8.0) g/dL Albumin (3.5-5.0) g/dL COVID-19 ([facility]) Negative (Negative) COVID-19 Clin Com See Note Discharge Plan Discharge Clinical Impression: Chest pain, Foreign body (FB) in soft tissue Patient Disposition: Home, Self-Care Instructions: Chest Pain (DC), Soft Tissue Foreign Body (ED) Additional Instructions: Blood work, x-ray, EKG are reassuring. Follow-up with primary care doctor's you might need additional testing Return for any worsening symptoms Prescriptions: No Action doxycycline hyclate 100 mg tablet 100 mg PO BID Qty: 20 0RF ibuprofen 600 mg tablet 600 mg PO Q8H PRN (Reason: pain) Qty: 20 0RF oxycodone 5 mg tablet 5 mg PO Q4-6H PRN (Reason: pain) Qty: 5 0RF Rx Instructions: Patient may request fewer tablets than prescribed oseltamivir [Tamiflu] 75 mg capsule 75 mg PO Q12H 5 Days Qty: 10 0RF ibuprofen 600 mg tablet 600 mg PO TID PRN (Reason: fever or pain) Qty: 20 0RF omeprazole 40 mg capsule,delayed release(DR/EC) 40 mg PO DAILY Qty: 30 0RF Referrals: Physician,None [Primary Care Provider] - Interventions: ED Discharge Assessment Last Done: 04/25/22 21:47 Discharge Date/Time: 04/25/22 21:47
[2022-04-25 17:31] LABS: MANUAL DIFF FLAG NO
[2022-04-25 17:39] LABS: Basophils Percent Auto 0.4 % (0-2); Eosinophils Absolute Auto 0.1 X10*3/uL (0.0-0.4); Eosinophils Percent Auto 0.8 % (0-4); Hematocrit 48.4 % (42.0-52.0); Hemoglobin 15.7 g/dl (14.0-18.0); Imm Gran Abs Auto 0.02 X10*3/uL (0.00-0.03); Imm Gran Pct Auto 0.2 % (0.0-0.4); Lymphocytes Absolute Auto 2.6 X10*3/uL (1.2-4.9); Lymphocytes Percent Auto 31.1 % (20-40); Mean Corpuscular HGB Conc 32.4 g/dl (31.0-36.0); Mean Corpuscular Hemoglobin 26.4 pg (27.0-33.0); Mean Corpuscular Volume 81.5 fL (80.0-98.0); Mean Platelet Volume 9.7 fL (9.4-12.4); Monocytes Absolute Auto 0.7 X10*3/uL (0.1-1.2); Monocytes Percent Auto 8.2 % (2-11); Neutrophils Percent Auto 59.3 % (45-73); Platelet Count 284 X10*3/uL (160-400); Red Blood Count 5.94 X10*6/uL (4.60-5.80); Red Cell Distribution Width 13.9 % (11.0-16.0); White Blood Count 8.3 X10*3/uL (4.8-10.8)
[2022-04-25 17:41] LABS: INTERNATIONAL NORM RATIO 1.1 (0.9-1.1); Prothrombin Time 12.3 SEC (10.0-13.1)
[2022-04-25 17:43] LABS: Partial Thromboplastin Time 36.9 SEC (26.0-36.4)
[2022-04-25 17:51] LABS: Alanine Aminotransferase 25 U/L (0-40); Albumin Level 4.5 g/dL (3.5-5.0); Alkaline Phosphatase 80 U/L (39-117); Anion Gap 16 (12-20); Aspartate Amino Transferase 20 U/L (5-37); Blood Urea Nitrogen 14 mg/dL (9-16); Calcium 9.8 mg/dL (8.4-10.2); Carbon Dioxide 29 mmol/L (22-29); Chloride 102 mmol/L (96-108); Creatinine Clr Calc Pharmacy 104.7; Estimated Glomerular Filt Rate > 60; Glucose Random 90 mg/dL (60-115); Potassium 4.7 mmol/L (3.3-5.1); Sodium 142 mmol/L (135-145); Total Protein 7.7 g/dL (6.5-8.0)
[2022-04-25 17:58] LABS: B Type Natriuretic Peptide 13 pg/mL (<100)
[2022-04-25 17:59] LABS: COVID-19 Test Negative (Negative); IDNOW Serial# 16C4AD1C; Troponin-I High Sensitivity < 3.5 ng/L (<3.5-35.0)
--- NOTE | 2022-04-25 21:39 | ED_ITS ---
HPI - Chest Pain General Chief Complaint: Chest Pain Stated Complaint: chest pain, back pain, splinter? Time Seen by Provider: 04/25/22 21:02 Source: patient Mode of arrival: ambulatory Limitations: no limitations History of Present Illness HPI narrative: 31-year-old male previously healthy here with left-sided chest pain with radiation to the back intermittent for 1 month which is not changed with exertion, deep breathing or movement. No associated shortness of breath, cough or fever. No leg swelling or leg pain. No recent travel or sick contact. No family history of sudden cardiac or blood clots. Patient also reports a wooden splinter to his right thumb x several days Related Data Previous Rx's Medication Instructions Recorded doxycycline hyclate 100 mg tablet 100 mg PO BID #20 tabs 04/08/21 ibuprofen 600 mg tablet 600 mg PO Q8H PRN pain #20 tabs 04/08/21 oxycodone 5 mg tablet 5 mg PO Q4-6H PRN pain #5 tabs 04/08/21 ibuprofen 600 mg tablet 600 mg PO TID PRN fever or pain 09/07/21 #20 tabs oseltamivir 75 mg capsule (Tamiflu) 75 mg PO Q12H 5 days #10 caps 09/07/21 omeprazole 40 mg capsule,delayed 40 mg PO DAILY #30 caps 01/19/22 release Allergies Allergy/AdvReac Type Severity Reaction Status Date / Time vancomycin Allergy Itching Verified 04/25/22 17:20 Review of Systems Review of Systems: Yes all other systems are reviewed and are negative Constitutional: Constitutional: Reports no additional constitutional complaints, Denies body ache(s), Denies chills, Denies fever(s), Denies headache(s) and Denies weakness Eyes: Eyes: Reports no additional eye complaints and Denies change in vision ENT: Reports system reviewed and no additional complaints, except as documented, Denies dizziness, Denies headache(s), Denies nasal congestion, Denies nasal discharge and Denies neck pain Cardiovascular: Cardiovascular: Reports no additional cardiovascular complaints, Reports chest pain, Denies leg edema and Denies dyspnea Respiratory: Respiratory: Reports no additional respiratory complaints, Denies cough and Denies dyspnea Gastrointestinal: Gastrointestinal: Reports no additional gastrointestinal complaints, Denies abdominal pain, Denies diarrhea, Denies nausea and Denies vomiting Genitourinary: Genitourinary: Denies urinary incontinence Musculoskeletal: Musculoskeletal: Reports no additional musculoskeletal complaints, Reports back pain, Denies arthralgias, Denies joint swelling, Denies neck pain, Denies numbness and Denies tingling Integumentary/Breasts: Skin/Breast: Reports system reviewed and no additional complaints, except as docu and Denies rash Neurologic: Reports system reviewed and no additional complaints, except as documented, Denies Abnormal speech present, Denies dizziness, Denies headache(s), Denies numbness, Denies tingling and Denies weakness PMFSH Past Medical History Attestation statement: The following information was validated with the patient. Source: old records reviewed and nursing notes reviewed Surgical History History of bladder surgery S/P appendectomy Social History Social History Alcohol intake: never Patient Tobacco Use Status: Never used Tobacco Advance Directives: No Advance Directives Information Provided: Yes Physical Exam Vital Signs: Vital Signs: Last Vital Signs Temp 97.4 F 04/25/22 17:19 Pulse 84 04/25/22 17:19 Resp 16 04/25/22 17:19 BP 135/72 04/25/22 17:19 Pulse Ox 95 04/25/22 17:19 O2 Del Method 04/25/22 17:19 BMI result Body Mass Index 38.9 Const: General: cooperative, healthy appearing, comfortable and no acute distress Orientation/consciousness: patient oriented x3 Limitations: no limitations HEENT: Head: Yes normal to inspection Ears: hearing grossly normal bilaterally General nose exam: Normal external nose present Face and sinus: Yes normal facial exam Mouth: Normal oral and palatal mucosa present Throat: Yes posterior oropharynx normal Eyes: General: appearance normal, both eyes and all related structures Pupils: Equal, round and reactive pupils present Neck: Neck: Yes normal visual inspection Chest: Chest palpation & inspection: normal inspection of the chest Resp: Effort & Inspection: normal respiratory effort Auscultation: clear to auscultation bilaterally Cardio: Rate: regular rate Rhythm: regular rhythm Peripheral pulses: Peripheral pulses 2+ throughout GI: Inspection: Yes normal to inspection Palpation (GI): Soft to palpation and nontender Auscultation: normal bowel sounds Back/Spine/Pelvis: Thoracic/Lumbar Spine: thoracic and lumbar spine normal to inspection Skin: General skin exam: no rashes or lesions noted Neuro: General: patient oriented x3, no focal motor deficits and normal sensation to monofilament Cranial nerves: Yes Equal, round and reactive pupils present Cognition (Neuro): normal cognition Speech: No Abnormal speech present Gait exam (Neuro): Normal gait present Motor exam (neuro): 5/5 motor strength present throughout Extrem: General: Yes normal to inspection, Yes no pedal edema and Yes no calf tenderness Hand/finger images: 1. Superficial splinter Course Course Course Narrative: Labs unremarkable. Chest x-ray shows no acute finding. EKG is negative for any ischemic changes. Patient can follow up with his primary care doctor in regards to this. See procedure note for foreign body removal of the right thumb. Reviewed worrisome signs and symptoms of when to return to the emergency room. Comfortable discharge home. Procedures Foreign Body Removal Site: right and other (thumb) Description of foreign body: other (splinter) Sedation/Analgesia: none Technique: manual removal Confirmed by:: direct visualization Complications: none Neurovascular: normal distal pulse, normal capillary fill, distal light touch sensation intact and distal motor function normal MDM - Chest Pain MDM Narrative Medical decision making narrative: 31-year-old male here with intermittent chest pain for the last few months with some pain in the back as well. No other associated symptoms. Not exertional. Seems a atypical for ACS. Dissection less likely with symptoms for months Perc is 0 Will check labs, chest x-ray, EKG Also complaining of soft tissue foreign body which is a wooden splinter in his right thumb Medical Records Data Attestation: I reviewed the patient's medical records. Lab Data Attestation: I reviewed the patient's lab results. Result diagrams: 04/25/22 17:25 04/25/22 17:25 Labs: Lab Results 04/25/22 04/25/22 04/25/22 Range/Units 17:25 17:25 17:25 WBC 8.3 (4.8-10.8) X10*3/uL RBC 5.94 H (4.60-5.80) X10*6/uL Hgb 15.7 (14.0-18.0) g/dl Hct 48.4 (42.0-52.0) % MCV 81.5 (80.0-98.0) fL MCH 26.4 L (27.0-33.0) pg MCHC 32.4 (31.0-36.0) g/dl RDW 13.9 (11.0-16.0) % Plt Count 284 (160-400) X10*3/uL MPV 9.7 (9.4-12.4) fL Immature Gran % (Auto) 0.2 (0.0-0.4) % Neut % (Auto) 59.3 (45-73) % Lymph % (Auto) 31.1 (20-40) % [place] % (Auto) 8.2 (2-11) % Eos % (Auto) 0.8 (0-4) % Baso % (Auto) 0.4 (0-2) % Lymph # (Auto) 2.6 (1.2-4.9) X10*3/uL [place] # (Auto) 0.7 (0.1-1.2) X10*3/uL Eos # (Auto) 0.1 (0.0-0.4) X10*3/uL Baso # (Auto) 0.0 (0.0-0.2) X10*3/uL Abs Immat Gran (auto) 0.02 (0.00-0.03) X10*3/uL Absolute Neuts (auto) 5.0 (2.0-8.3) x10*3/uL Absolute Nucleated RBC 0.000 (0.0-0.012) X10*3/uL Nucleated RBC % (auto) 0.0 (0.0-0.2) /100WBC PT 12.3 (10.0-13.1) SEC INR 1.1 (0.9-1.1) APTT 36.9 H (26.0-36.4) SEC Sodium 142 (135-145) mmol/L Potassium 4.7 (3.3-5.1) mmol/L Chloride 102 (96-108) mmol/L Carbon Dioxide 29 (22-29) mmol/L Anion Gap 16 (12-20) BUN 14 (9-16) mg/dL Creatinine 1.09 (0.5-1.4) mg/dL Estim Creat Clear Calc 104.7 Estimated GFR > 60 Random Glucose 90 (60-115) mg/dL Calcium 9.8 D (8.4-10.2) mg/dL Total Bilirubin 1.0 (0.0-1.0) mg/dL AST 20 (5-37) U/L ALT 25 (0-40) U/L Alkaline Phosphatase 80 (39-117) U/L Troponin I High Sens (<3.5-35.0) ng/L B-Natriuretic Peptide (<100) pg/mL Total Protein 7.7 (6.5-8.0) g/dL Albumin 4.5 (3.5-5.0) g/dL COVID-19 ([facility]) (Negative) COVID-19 Clin Com 04/25/22 04/25/22 04/25/22 Range/Units 17:25 17:25 17:25 WBC (4.8-10.8) X10*3/uL RBC (4.60-5.80) X10*6/uL Hgb (14.0-18.0) g/dl Hct (42.0-52.0) % MCV (80.0-98.0) fL MCH (27.0-33.0) pg MCHC (31.0-36.0) g/dl RDW (11.0-16.0) % Plt Count (160-400) X10*3/uL MPV (9.4-12.4) fL Immature Gran % (Auto) (0.0-0.4) % Neut % (Auto) (45-73) % Lymph % (Auto) (20-40) % [place] % (Auto) (2-11) % Eos % (Auto) (0-4) % Baso % (Auto) (0-2) % Lymph # (Auto) (1.2-4.9) X10*3/uL [place] # (Auto) (0.1-1.2) X10*3/uL Eos # (Auto) (0.0-0.4) X10*3/uL Baso # (Auto) (0.0-0.2) X10*3/uL Abs Immat Gran (auto) (0.00-0.03) X10*3/uL Absolute Neuts (auto) (2.0-8.3) x10*3/uL Absolute Nucleated RBC (0.0-0.012) X10*3/uL Nucleated RBC % (auto) (0.0-0.2) /100WBC PT (10.0-13.1) SEC INR (0.9-1.1) APTT (26.0-36.4) SEC Sodium (135-145) mmol/L Potassium (3.3-5.1) mmol/L Chloride (96-108) mmol/L Carbon Dioxide (22-29) mmol/L Anion Gap (12-20) BUN (9-16) mg/dL Creatinine (0.5-1.4) mg/dL Estim Creat Clear Calc Estimated GFR Random Glucose (60-115) mg/dL Calcium (8.4-10.2) mg/dL Total Bilirubin (0.0-1.0) mg/dL AST (5-37) U/L ALT (0-40) U/L Alkaline Phosphatase (39-117) U/L Troponin I High Sens < 3.5 (<3.5-35.0) ng/L B-Natriuretic Peptide 13 (<100) pg/mL Total Protein (6.5-8.0) g/dL Albumin (3.5-5.0) g/dL COVID-19 ([facility]) Negative (Negative) COVID-19 Clin Com See Note Imaging Data Chest x-ray: Attestation: I personally reviewed and interpreted this imaging study as f sarai: Radiologist's impression: [address] [address] XRay Report Signed Patient: Merlin Carbajal MR#: [id number] : 1990 Acct:[id number] Age/Sex: 31 / M ADM Date: 04/25/22 Loc: HO.ED Attending Dr: Ordering Physician: Adelso Del Angel Date of Service: 04/25/22 Procedure(s): XR chest 1V Accession Number(s): [id number] cc: Adelso Del Angel~ EXAMINATION: XR CHEST CLINICAL INFORMATION: Chest pain COMPARISON: None TECHNIQUE: Frontal view of the chest was obtained. FINDINGS: No significant abnormality is noted involving the heart, lungs, mediastinum, bony thorax or soft tissues. XR/XR chest 1V IMPRESSION: Unremarkable examination. ? ECG Data ECG #1: Attestation: I personally reviewed and interpreted this ECG as follows: ECG interpretation date: 04/25/22 ECG interpretation time: 16:13 Interpretation: Normal sinus rhythm with rate 84, normal OR, normal QRS, normal QT Discharge Plan Discharge Clinical Impression: Chest pain, Foreign body (FB) in soft tissue Patient Disposition: Home, Self-Care Instructions: Chest Pain (DC), Soft Tissue Foreign Body (ED) Additional Instructions: Blood work, x-ray, EKG are reassuring. Follow-up with primary care doctor's you might need additional testing Return for any worsening symptoms Prescriptions: No Action doxycycline hyclate 100 mg tablet 100 mg PO BID Qty: 20 0RF ibuprofen 600 mg tablet 600 mg PO Q8H PRN (Reason: pain) Qty: 20 0RF oxycodone 5 mg tablet 5 mg PO Q4-6H PRN (Reason: pain) Qty: 5 0RF Rx Instructions: Patient may request fewer tablets than prescribed oseltamivir [Tamiflu] 75 mg capsule 75 mg PO Q12H 5 Days Qty: 10 0RF ibuprofen 600 mg tablet 600 mg PO TID PRN (Reason: fever or pain) Qty: 20 0RF omeprazole 40 mg capsule,delayed release(DR/EC) 40 mg PO DAILY Qty: 30 0RF Referrals: Physician,None [Primary Care Provider] - Interventions: ED Discharge Assessment Last Done: 04/25/22 21:47 Discharge Date/Time: 04/25/22 21:47
--- NOTE | 2022-04-25 21:47 | PC.NURSE ---
Discharge instructions reviewed with pt. Pt verbalizes understanding.
== END 2022-04-25 21:47 | disposition home or self-care (01) ==
PROVIDERS: Physician Assistant; Emergency Provider Emergency Medicine
DX: S60.351A Superficial foreign body of right thumb, initial encounter (principal); R07.89 Other chest pain; M54.50 Low back pain, unspecified; R06.02 Shortness of breath; Y28.9XXA Contact with unspecified sharp object, undetermined intent, initial encounter; Y93.9 Activity, unspecified; Y92.9 Unspecified place or not applicable; Y99.9 Unspecified external cause status; Z20.822 Contact with and (suspected) exposure to COVID-19; Z79.899 Other long term (current) drug therapy
CPT/HCPCS: 10120; 36415; 71045; 80053; 83880; 84484; 85025; 85610; 85730; 87635; 93005; 99283

== ENCOUNTER 2022-06-02 21:05 | Emergency (ER) | payer MEDICAID, SELFPAY ==
[2022-06-02 22:24] VITALS: BP 113/80; PULSE 71; RESP 18; TEMP 36.2; O2SAT 98; BMI 38.9
== END 2022-06-03 03:08 | disposition left against medical advice (07) ==
PROVIDERS: Emergency Provider Emergency Medicine
DX: M79.603 Pain in arm, unspecified (principal)
CPT/HCPCS: 99281

== ENCOUNTER 2022-09-11 20:35 | Emergency (ER) | payer MEDICAID, SELFPAY ==
--- NOTE | ~2022-09-11 | XR_ITS ---
EXAMINATION: XR FOOT, LEFT CLINICAL INFORMATION: Status post puncture wound with mya nail. COMPARISON: None available. TECHNIQUE: AP, lateral, and oblique views of the left foot. FINDINGS: Question irregularity of the superficial subcutaneous soft tissues over the plantar aspect of the foot at the level of the distal metatarsals with surrounding soft tissue swelling Bones joints and soft tissues otherwise unremarkable. No radiopaque foreign body detected. XR/XR foot LT min 3V IMPRESSION: 1. Soft tissue swelling and possible irregularity of the superficial subcutaneous soft tissues over the plantar aspect of the foot. This could reflect soft tissue laceration related to reported puncture wound 2. No radiopaque foreign body detected.
--- NOTE | 2022-09-11 20:44 | ED.LOWEXIN ---
HPI - Extremity Injury (Lower) General Chief Complaint: Extremity Injury, Lower <IVY Panda - Last Filed: 09/11/22 20:46> Stated Complaint: mya nail left foot <IVY Panda - Last Filed: 09/11/22 20:46> Time Seen by Provider: 09/11/22 23:13 <IVY Panda - Last Filed: 09/11/22 20:46> Source: patient <IVY Wilcox - Last Filed: 09/11/22 23:40> Mode of arrival: ambulatory <IVY Wilcox - Last Filed: 09/11/22 23:40> Limitations: no limitations <IVY Wilcox - Last Filed: 09/11/22 23:40> History of Present Illness HPI Narrative: 32-year-old male presents for evaluation of puncture wound to left plantar aspect of foot, patient stepped on a nail while at work. Reporting pain and swelling at this site. Unclear of tetanus status. Denies numbness, tingling. He tells me he did have shoes on and the nail did go through his shoes. Denies fevers, chills, chest pain, shortness of breath or any other injuries. <IVY Wilcox - Last Filed: 09/11/22 23:40> Related Data Home Medications: Previous Rx's Medication Instructions Recorded doxycycline hyclate 100 mg tablet 100 mg PO BID #20 tabs 04/08/21 ibuprofen 600 mg tablet 600 mg PO Q8H PRN pain #20 tabs 04/08/21 oxycodone 5 mg tablet 5 mg PO Q4-6H PRN pain #5 tabs 04/08/21 ibuprofen 600 mg tablet 600 mg PO TID PRN fever or pain 09/07/21 #20 tabs oseltamivir 75 mg capsule (Tamiflu) 75 mg PO Q12H 5 days #10 caps 09/07/21 omeprazole 40 mg capsule,delayed 40 mg PO DAILY #30 caps 01/19/22 release doxycycline hyclate 100 mg capsule 100 mg PO BID 10 days #20 caps 09/11/22 levofloxacin 750 mg tablet 750 mg PO DAILY 7 days #7 tabs 09/11/22 <IVY Panda - Last Filed: 09/11/22 20:46> Allergies/Adverse Reactions: Allergies Allergy/AdvReac Type Severity Reaction Status Date / Time vancomycin Allergy Itching Verified 04/25/22 17:20 <IVY Panda - Last Filed: 09/11/22 20:46> Review of Systems Review of Systems: Constitutional : No Fever, No Chills, Cardiovascular : No Chest Pain, No SOB Respiratory : No Dyspnea Gastrointestinal : No abdominal pain Musculoskeletal : No Joint Swelling Skin : No rash, positive skin puncture wound Neuro : No Weakness, No Numbness Psych : No SI/HI <IVY Wilcox - Last Filed: 09/11/22 23:40> Yes all other systems are reviewed and are negative <IVY Wilcox - Last Filed: 09/11/22 23:40> [facility] Past Medical History Attestation statement: The following information was validated with the patient. <IVY Wilcox - Last Filed: 09/11/22 23:40> Source: old records reviewed and nursing notes reviewed <IVY Wilcox - Last Filed: 09/11/22 23:40> Surgical History: Surgical History History of bladder surgery S/P appendectomy <IVY Panda - Last Filed: 09/11/22 20:46> Social History Social History: Social History Alcohol intake: never Patient Tobacco Use Status: Never used Tobacco <IVY Panda - Last Filed: 09/11/22 20:46> Physical Exam Vital Signs: Vital Signs: Last Vital Signs Temp 99.3 F 09/11/22 20:45 Pulse 85 09/11/22 20:45 Resp 18 09/11/22 20:45 BP 164/101 H 09/11/22 20:45 Pulse Ox 98 09/11/22 20:45 O2 Del Method Room Air 09/11/22 20:45 BMI result Body Mass Index 41.1 <IVY Panda - Last Filed: 09/11/22 20:46> Vital Signs: Last Vital Signs Temp 99.3 F 09/11/22 20:45 Pulse 85 09/11/22 20:45 Resp 18 09/11/22 20:45 BP 164/101 H 09/11/22 20:45 Pulse Ox 98 09/11/22 20:45 O2 Del Method Room Air 09/11/22 20:45 BMI result Body Mass Index 41.1 Vital signs stable <IVY Wilcox - Last Filed: 09/11/22 23:40> Appearance: Alert.? Oriented X3.? No acute distress.? Head: Normocephalic, atraumatic, no step-offs or deformities Eyes: Pupils equal, round and reactive to light.? CVS: Normal heart rate and rhythm.? Pulses normal.? Respiratory: No respiratory distress.? Breath sounds normal.? Abdomen: Soft and nontender.? Skin: Skin warm and dry.? Normal skin color.? Normal skin turgor.?+ puncture wound to the left plantar aspect of foot on arch with overlying swelling, and slight erythema, no evidence of foreign body. 2+ dorsalis pedis, anterior tibialis and posterior tibialis pulses equal bilateral. Capillary refill less than 2 seconds to bilateral lower extremities. Normal sensation to lower extremities. Ambulating without difficulty. Normal right foot Extremities: No lower extremity edema.? No calf ttp. 5/5 strength to bilateral upper and lower extremities Neuro: Oriented X 3.? No motor deficit.? No sensory deficit. CN 2-12 intact <IVY Wilcox - Last Filed: 09/11/22 23:40> Course Course Course Narrative: RME- 20:45pm - 32-year-old male presenting to the ER with complaints of a puncture wound to the left foot that occurred while he was at work a few hours prior to arrival from stepping on a mya nail. Reports that he had a rubber shoe 1 and went through the Elliot shoe. He reports he pulled the nail out. He does not believe he has any foreign bodies. He is unsure if he is up-to-date on tetanus. He denies any other injuries complaints or concerns at this time. Plan: X-ray of left foot ordered at this time along with tetanus vaccine patient will need antibiotics <IVY Panda - Last Filed: 09/11/22 20:46> Reevaluation(s) Reevaluation #1: X-ray with soft tissue swelling. Will discharge home on Levaquin and doxycycline to cover for both Pseudomonas and Staph. Tetanus shot given. Educated patient on diagnosis and treatment plan, answered all question, patient verbalizes understanding. At this time patient will be discharged home, advised to return with new or worsening symptoms. Educated on worrisome signs and symptoms and when to return. At this time I feel comfortable discharge home. <IVY Wilcox - Last Filed: 09/11/22 23:40> Time: 23:35 <IVY Wilcox - Last Filed: 09/11/22 23:40> Medications Administered Discontinued Medications Generic Name Dose Route Start Last Admin Trade Name Freq PRN Reason Stop Dose Admin Diphtheria/Tetanus/Acell Pertussis 0.5 ml 09/11/22 20:44 09/11/22 23:21 Diphth,Pertus(Acell),Tet Adult 0.5 Ml Syringe IM 09/11/22 20:45 0.5 ml .ONCE ONE Administration <IVY Panda - Last Filed: 09/11/22 20:46> Medications Administered Discontinued Medications Generic Name Dose Route Start Last Admin Trade Name Freq PRN Reason Stop Dose Admin Diphtheria/Tetanus/Acell Pertussis 0.5 ml 09/11/22 20:44 09/11/22 23:21 Diphth,Pertus(Acell),Tet Adult 0.5 Ml Syringe IM 09/11/22 20:45 0.5 ml .ONCE ONE Administration <IVY Wilcox - Last Filed: 09/11/22 23:40> Medical Decision Making Medical Decision Making [facility] Narrative: [id number] 32-year-old male presenting with puncture wound with nail through shoe to left plantar aspect of foot, occurred at work prior to arrival. Unsure of tetanus status. Denies numbness and tingling. Physical examination with puncture wound to the left plantar aspect of foot with overlying swelling, and slight erythema, no evidence of foreign body. 2+ dorsalis pedis, anterior tibialis and posterior tibialis pulses equal bilateral. Capillary refill less than 2 seconds to bilateral lower extremities. Normal sensation to lower extremities. Ambulating without difficulty. Normal right foot Likely puncture wound with overlying cellulitis and swelling. No signs of necrotizing infection, threatened limb. Plan imaging. <IVY Wilcox - Last Filed: 09/11/22 23:40> Differential Diagnosis Differential Diagnoses: The differential diagnosis associated with the presentation includes <IVY Wilcox - Last Filed: 09/11/22 23:40> Likely puncture wound with overlying cellulitis and swelling. No signs of necrotizing infection, threatened limb. <IVY Wilcox - Last Filed: 09/11/22 23:40> Admission/Observation Consideration of admission/observation: Escalation of care including admission/observation considered <IVY Wilcox - Last Filed: 09/11/22 23:40> Not indicated <IVY Wilcox - Last Filed: 09/11/22 23:40> Independent Interpretation I performed an independent interpretation of an: Plain X-Ray (Soft tissue swelling and irregularity of the superficial subcutaneous soft tissue of the plantar aspect of foot. No foreign bodies) <IVY Wilcox - Last Filed: 09/11/22 23:40> Radiology Impression Discussion of test interpretation with radiology: I have reviewed the radiologist's reading. <IVY Wilcox - Last Filed: 09/11/22 23:40> Prescription Management I considered prescription management with: Antibiotic <IVY Wilcox - Last Filed: 09/11/22 23:40> Core Measures Measure exclusions: not indicated <IVY Wilcox - Last Filed: 09/11/22 23:40> Critical Care Time Critical Care Time Critical Care Time: No <IVY Wilcox - Last Filed: 09/11/22 23:40> Discharge Plan Discharge Clinical Impression: Puncture wound <IVY Panda Last Filed: 09/11/22 20:46> Patient Disposition: Home, Self-Care <IVY Panda - Last Filed: 09/11/22 20:46> Additional Instructions: Take your medications as prescribed. If you were prescribed antibiotics today, it is important that you take your medication to their entirety, do not skip any doses, do not finish them early. Follow-up with your primary care provider this week. Return to the emergency department with new or worsening symptoms. Such as fevers, chills, chest pain, shortness of breath, nausea, vomiting, dizziness, headache, vision changes, lethargy, numbness, tingling, worsening redness or swelling In case of emergency call 911 I explained to the black box warning levofloxacin of tendon rupture. Please do not participate in strenuous activity while taking this, avoid exercising. If you have pain to a joint or tendon please seek medical attention. ?XR/XR foot LT min 3V IMPRESSION: 1.? Soft tissue swelling and possible irregularity of the superficial subcutaneous soft tissues over the plantar aspect of the foot. This could reflect soft tissue laceration related to reported puncture wound 2.? No radiopaque foreign body detected. follow-up with a were connection as this was a work related injury. ? <IVY Panda - Last Filed: 09/11/22 20:46> Prescriptions: New levofloxacin 750 mg tablet 750 mg PO DAILY 7 Days Qty: 7 0RF doxycycline hyclate 100 mg capsule 100 mg PO BID 10 Days Qty: 20 0RF No Action doxycycline hyclate 100 mg tablet 100 mg PO BID Qty: 20 0RF ibuprofen 600 mg tablet 600 mg PO Q8H PRN (Reason: pain) Qty: 20 0RF oxycodone 5 mg tablet 5 mg PO Q4-6H PRN (Reason: pain) Qty: 5 0RF Rx Instructions: Patient may request fewer tablets than prescribed oseltamivir [Tamiflu] 75 mg capsule 75 mg PO Q12H 5 Days Qty: 10 0RF ibuprofen 600 mg tablet 600 mg PO TID PRN (Reason: fever or pain) Qty: 20 0RF omeprazole 40 mg capsule,delayed release(DR/EC) 40 mg PO DAILY Qty: 30 0RF <IVY Panda - Last Filed: 09/11/22 20:46> Referrals: Physician,Unknown J [Primary Care Provider] - 2 days <VIY Panda - Last Filed: 09/11/22 20:46> Stand Alone Forms: Work/School Release <IVY Panda - Last Filed: 09/11/22 20:46>
[2022-09-11 20:45] VITALS: BP 164/101; PULSE 85; RESP 18; TEMP 37.4; O2SAT 98; BMI 41.1
[2022-09-11] MEDS: Diphth,Pertus(ACell),Tet Adult 0.5 ML SYRINGE IM (23:21)
== END 2022-09-12 00:28 | disposition home or self-care (01) ==
PROVIDERS: Emergency Provider Internal Medicine
DX: S91.332A Puncture wound without foreign body, left foot, initial encounter (principal); W45.0XXA Nail entering through skin, initial encounter; Y93.89 Activity, other specified; Y92.59 Other trade areas as the place of occurrence of the external cause; Y99.0 Civilian activity done for income or pay
CPT/HCPCS: 73630; 90471; 90715; 99282; 99284

== ENCOUNTER 2022-10-11 18:44 | Emergency (ER) | payer MEDICAID, SELFPAY ==
[2022-10-11 20:01] VITALS: BP 128/81; PULSE 102; RESP 20; TEMP 37.6; O2SAT 96; BMI 41.6
--- NOTE | 2022-10-11 20:02 | ED.GENADULT ---
HPI - General Adult General Chief complaint: General Medical <IVY Wilcox - Last Filed: 10/11/22 20:05> Stated complaint: Headache, Body aches, left side pain <IVY Wilcox - Last Filed: 10/11/22 20:05> Time Seen by Provider: 10/11/22 21:43 <IVY Wilcox - Last Filed: 10/11/22 20:05> Source: patient, RN notes reviewed and old records reviewed <Anuel Carson - Last Filed: 10/11/22 22:13> Mode of arrival: ambulatory <Anuel Carson - Last Filed: 10/11/22 22:13> Limitations: no limitations <Anuel Carson - Last Filed: 10/11/22 22:13> History of Present Illness HPI narrative: A 32-year-old male presents for evaluation of left-sided abdominal pain, headache, nausea and body aches. He also endorses diarrhea. His symptoms today 3 days ago He reports that his son had similar symptoms a few days prior that have since improved Patient denies any history abdominal surgeries he denies any coughing, shortness of breath Denies any black or bloody stool He rates his pain as 7/10 <Anuel Carson - Last Filed: 10/11/22 22:13> Related Data Home medications: Previous Rx's Medication Instructions Recorded doxycycline hyclate 100 mg tablet 100 mg PO BID #20 tabs 04/08/21 ibuprofen 600 mg tablet 600 mg PO Q8H PRN pain #20 tabs 04/08/21 oxycodone 5 mg tablet 5 mg PO Q4-6H PRN pain #5 tabs 04/08/21 ibuprofen 600 mg tablet 600 mg PO TID PRN fever or pain 09/07/21 #20 tabs oseltamivir 75 mg capsule (Tamiflu) 75 mg PO Q12H 5 days #10 caps 09/07/21 omeprazole 40 mg capsule,delayed 40 mg PO DAILY #30 caps 01/19/22 release doxycycline hyclate 100 mg capsule 100 mg PO BID 10 days #20 caps 09/11/22 levofloxacin 750 mg tablet 750 mg PO DAILY 7 days #7 tabs 09/11/22 ondansetron 4 mg disintegrating 4 mg PO Q8H PRN nausea and 10/11/22 tablet vomiting #20 tabs <IVY Wilcox - Last Filed: 10/11/22 20:05> Allergies/adverse reactions: Allergies Allergy/AdvReac Type Severity Reaction Status Date / Time vancomycin Allergy Itching Verified 10/11/22 20:06 <IVY Wilcox - Last Filed: 10/11/22 20:05> Review of Systems Constitutional: Constitutional: Reports as per HPI, Reports body ache(s), Reports chills, Denies fever(s) and Reports headache(s) <Anuel Carson - Last Filed: 10/11/22 22:13> ENT: Reports headache(s) <Anuel Carson - Last Filed: 10/11/22 22:13> Cardiovascular: Cardiovascular: Denies chest pain and Denies dyspnea <Anuel Carson - Last Filed: 10/11/22 22:13> Respiratory: Respiratory: Denies cough and Denies dyspnea <Anuel Carson - Last Filed: 10/11/22 22:13> Gastrointestinal: Gastrointestinal: Reports abdominal pain, Denies constipation, Reports nausea and Denies vomiting <Anuel Carson - Last Filed: 10/11/22 22:13> Genitourinary: Genitourinary: Denies difficulty urinating and Denies dysuria <Anuel Carson - Last Filed: 10/11/22 22:13> Neurologic: Reports headache(s) and Denies focal weakness <Anuel Carson - Last Filed: 10/11/22 22:13> [facility] Past Medical History Surgical History: Surgical History History of bladder surgery S/P appendectomy <IVY Wilcox - Last Filed: 10/11/22 20:05> Social History Social History: Social History Alcohol intake: never Patient Tobacco Use Status: Never used Tobacco Advance Directives: No Advance Directives Information Provided: No <IVY Wilcox - Last Filed: 10/11/22 20:05> Physical Exam ED Vital Signs: Vital Signs - 24 hr 10/11/22 20:01 Temperature 99.6 F Pulse Rate 102 H Respiratory Rate 20 Blood Pressure 128/81 Pulse Oximetry 96 Oxygen Delivery Method Room Air BMI result Body Mass Index 41.6 <IVY Wilcox - Last Filed: 10/11/22 20:05> Vital Signs - 24 hr 10/11/22 20:01 Temperature 99.6 F Pulse Rate 102 H Respiratory Rate 20 Blood Pressure 128/81 Pulse Oximetry 96 Oxygen Delivery Method Room Air BMI result Body Mass Index 41.6 <Anuel Carson - Last Filed: 10/11/22 22:13> Const General: healthy appearing, comfortable, no acute distress, alert and awake <Anuel ODickson - Last Filed: 10/11/22 22:13> Nutritional Appearance: well nourished <Anuel O - Last Filed: 10/11/22 22:13> Orientation/consciousness: patient oriented x3 <Anuel JuarezDickson - Last Filed: 10/11/22 22:13> HENMT Head: Yes normocephalic and Yes atraumatic <Anuel - Last Filed: 10/11/22 22:13> Throat: Yes posterior oropharynx normal <Anuel Dickson - Last Filed: 10/11/22 22:13> Eyes Eyelids: Yes eyelids normal <Anuel Dickson - Last Filed: 10/11/22 22:13> Conjunctivae: conjunctivae normal <Anuel ODickson - Last Filed: 10/11/22 22:13> Sclerae: sclerae normal <Anuel O - Last Filed: 10/11/22 22:13> Corneas: corneas normal <Anuel O - Last Filed: 10/11/22 22:13> Pupils: Equal, round and reactive pupils present <Anuel OHayden - Last Filed: 10/11/22 22:13> EOM: EOMs intact bilaterally <Anuel JuarezDickson - Last Filed: 10/11/22 22:13> Neck Neck: Yes full ROM <Anuel JuarezHayden - Last Filed: 10/11/22 22:13> Resp Effort & Inspection: normal respiratory effort, able to speak in complete sentences, no audible wheezes and not labored <Anuel JuarezDickson - Last Filed: 10/11/22 22:13> Auscultation: clear to auscultation bilaterally <Anuel ODickson - Last Filed: 10/11/22 22:13> Cardio Rate: regular rate <Anuel Larry - Last Filed: 10/11/22 22:13> Rhythm: regular rhythm <Anuel LarryDickson - Last Filed: 10/11/22 22:13> GI Inspection: No distended <Anuel Larry - Last Filed: 10/11/22 22:13> Palpation (GI): Soft to palpation, not firm, Tenderness to palpation present (GI) in the LUQ; not in the RUQ and no guarding <Anuel ODickson - Last Filed: 10/11/22 22:13> Auscultation: normoactive bowel sounds <Anuel ODickson - Last Filed: 10/11/22 22:13> Skin General skin exam: no rashes or lesions noted and elasticity normal <Anuel Larry - Last Filed: 10/11/22 22:13> Neuro General: patient oriented x3 <Anuel ODickson - Last Filed: 10/11/22 22:13> Cranial nerves: Yes CN's II-XII intact bilaterally, Yes Equal, round and reactive pupils present and Yes Bilaterally intact EOM present <Anuel OHayden - Last Filed: 10/11/22 22:13> Cognition (Neuro): normal cognition <Anuel ODickson - Last Filed: 10/11/22 22:13> Extrem Other: Moving all extremities well without any obvious deformities <Anuel O - Last Filed: 10/11/22 22:13> Course Course Course Narrative: This is an RME: Additional HPI, ROS, PE not included below will be deferred to primary provider. 32 year old male presents to the ED with nausea, diarrhea and left sided abdominal pain for 2 days. Patient reports he is not eating or drinking. He reports his child has similar symptoms. Denies fatigue, fever, chills, malaise or weight loss. PE: benign Plan: basic labs, FLU and COVID <IVY Wilcox - Last Filed: 10/11/22 20:05> Medical Decision Making Medical Decision Making [facility] Narrative: 32-year-old male presents for evaluation of abdominal pain and diarrhea started 3 days ago. He also endorses chills, body aches. He likely has a viral illness. This was discussed with him. He was negative for COVID, influenza, RSV. He denies any urinary complaints. His abdominal exam is reassuring, nondistended, tender but without guarding or rebound tenderness. Patient's T bili is slightly elevated to 1.9 he has no right upper quadrant pain or tenderness. Less likely biliary disease. Will treat the patient discomfort with ibuprofen and Zofran. He will follow-up with his primary doctor. He has no leukocytosis and he is afebrile <Anuel Carson - Last Filed: 10/11/22 22:13> Differential Diagnosis Viral illness Abdominal pain Peptic ulcer disease Muscle strain Gastroenteritis Colitis Diverticulitis <Anuel Carson - Last Filed: 10/11/22 22:13> Lab Data [facility] Lab Attestation statement: I reviewed the patient's lab results. <Anuel Carson - Last Filed: 10/11/22 22:13> Result Diagrams: 10/11/22 21:12 10/11/22 21:12 <IVY Wilcox - Last Filed: 10/11/22 20:05> Labs: Lab Results 10/11/22 10/11/22 10/11/22 Range/Units 21:12 21:12 21:12 WBC 9.2 (4.8-10.8) X10*3/uL RBC 6.14 H (4.60-5.80) X10*6/uL Hgb 16.3 (14.0-18.0) g/dl Hct 48.9 (42.0-52.0) % MCV 79.6 L (80.0-98.0) fL MCH 26.5 L (27.0-33.0) pg MCHC 33.3 (31.0-36.0) g/dl RDW 14.3 (11.0-16.0) % Plt Count 245 (160-400) X10*3/uL MPV 9.6 (9.4-12.4) fL Immature Gran % (Auto) 0.3 (0.0-0.4) % Neut % (Auto) 80.9 H (45-73) % Lymph % (Auto) 10.1 L (20-40) % Davie % (Auto) 8.4 (2-11) % Eos % (Auto) 0.2 (0-4) % Baso % (Auto) 0.1 (0-2) % Lymph # (Auto) 0.9 L (1.2-4.9) X10*3/uL Davie # (Auto) 0.8 (0.1-1.2) X10*3/uL Eos # (Auto) 0.0 (0.0-0.4) X10*3/uL Baso # (Auto) 0.0 (0.0-0.2) X10*3/uL Abs Immat Gran (auto) 0.03 (0.00-0.03) X10*3/uL Absolute Neuts (auto) 7.4 (2.0-8.3) x10*3/uL Absolute Nucleated RBC 0.000 (0.0-0.012) X10*3/uL Nucleated RBC % (auto) 0.0 (0.0-0.2) /100WBC Sodium (135-145) mmol/L Potassium (3.3-5.1) mmol/L Chloride (96-108) mmol/L Carbon Dioxide (22-29) mmol/L Anion Gap (12-20) BUN (9-16) mg/dL Creatinine (0.5-1.4) mg/dL Estim Creat Clear Calc Estimated GFR Random Glucose (60-115) mg/dL Calcium (8.4-10.2) mg/dL Total Bilirubin (0.0-1.0) mg/dL AST (5-37) U/L ALT (0-40) U/L Alkaline Phosphatase (39-117) U/L Total Protein (6.5-8.0) g/dL Albumin (3.5-5.0) g/dL COVID-19 (ALMA) Negative (Negative) COVID-19 Clin Com See Note Influenza Type A (JOSEFINA) Negative (Negative) Influenza Type B (JOSEFINA) Negative (Negative) Influenza A & B Note See Note 10/11/22 Range/Units 21:12 WBC (4.8-10.8) X10*3/uL RBC (4.60-5.80) X10*6/uL Hgb (14.0-18.0) g/dl Hct (42.0-52.0) % MCV (80.0-98.0) fL MCH (27.0-33.0) pg MCHC (31.0-36.0) g/dl RDW (11.0-16.0) % Plt Count (160-400) X10*3/uL MPV (9.4-12.4) fL Immature Gran % (Auto) (0.0-0.4) % Neut % (Auto) (45-73) % Lymph % (Auto) (20-40) % Davie % (Auto) (2-11) % Eos % (Auto) (0-4) % Baso % (Auto) (0-2) % Lymph # (Auto) (1.2-4.9) X10*3/uL Davie # (Auto) (0.1-1.2) X10*3/uL Eos # (Auto) (0.0-0.4) X10*3/uL Baso # (Auto) (0.0-0.2) X10*3/uL Abs Immat Gran (auto) (0.00-0.03) X10*3/uL Absolute Neuts (auto) (2.0-8.3) x10*3/uL Absolute Nucleated RBC (0.0-0.012) X10*3/uL Nucleated RBC % (auto) (0.0-0.2) /100WBC Sodium 139 (135-145) mmol/L Potassium 4.3 (3.3-5.1) mmol/L Chloride 103 (96-108) mmol/L Carbon Dioxide 28 (22-29) mmol/L Anion Gap 12 (12-20) BUN 13 (9-16) mg/dL Creatinine 0.87 (0.5-1.4) mg/dL Estim Creat Clear Calc 134.8 Estimated GFR > 60 Random Glucose 104 (60-115) mg/dL Calcium 9.2 D (8.4-10.2) mg/dL Total Bilirubin 1.9 H (0.0-1.0) mg/dL AST 22 (5-37) U/L ALT 30 (0-40) U/L Alkaline Phosphatase 73 (39-117) U/L Total Protein 7.7 (6.5-8.0) g/dL Albumin 4.5 (3.5-5.0) g/dL COVID-19 (ALMA) (Negative) COVID-19 Clin Com Influenza Type A (JOSEFINA) (Negative) Influenza Type B (JOSEFINA) (Negative) Influenza A & B Note <IVY Wilcox - Last Filed: 10/11/22 20:05> Lab Results 10/11/22 10/11/22 10/11/22 Range/Units 21:12 21:12 21:12 WBC 9.2 (4.8-10.8) X10*3/uL RBC 6.14 H (4.60-5.80) X10*6/uL Hgb 16.3 (14.0-18.0) g/dl Hct 48.9 (42.0-52.0) % MCV 79.6 L (80.0-98.0) fL MCH 26.5 L (27.0-33.0) pg MCHC 33.3 (31.0-36.0) g/dl RDW 14.3 (11.0-16.0) % Plt Count 245 (160-400) X10*3/uL MPV 9.6 (9.4-12.4) fL Immature Gran % (Auto) 0.3 (0.0-0.4) % Neut % (Auto) 80.9 H (45-73) % Lymph % (Auto) 10.1 L (20-40) % Davie % (Auto) 8.4 (2-11) % Eos % (Auto) 0.2 (0-4) % Baso % (Auto) 0.1 (0-2) % Lymph # (Auto) 0.9 L (1.2-4.9) X10*3/uL Davie # (Auto) 0.8 (0.1-1.2) X10*3/uL Eos # (Auto) 0.0 (0.0-0.4) X10*3/uL Baso # (Auto) 0.0 (0.0-0.2) X10*3/uL Abs Immat Gran (auto) 0.03 (0.00-0.03) X10*3/uL Absolute Neuts (auto) 7.4 (2.0-8.3) x10*3/uL Absolute Nucleated RBC 0.000 (0.0-0.012) X10*3/uL Nucleated RBC % (auto) 0.0 (0.0-0.2) /100WBC Sodium (135-145) mmol/L Potassium (3.3-5.1) mmol/L Chloride (96-108) mmol/L Carbon Dioxide (22-29) mmol/L Anion Gap (12-20) BUN (9-16) mg/dL Creatinine (0.5-1.4) mg/dL Estim Creat Clear Calc Estimated GFR Random Glucose (60-115) mg/dL Calcium (8.4-10.2) mg/dL Total Bilirubin (0.0-1.0) mg/dL AST (5-37) U/L ALT (0-40) U/L Alkaline Phosphatase (39-117) U/L Total Protein (6.5-8.0) g/dL Albumin (3.5-5.0) g/dL COVID-19 (ALMA) Negative (Negative) COVID-19 Clin Com See Note Influenza Type A (JOSEFINA) Negative (Negative) Influenza Type B (JOSEFINA) Negative (Negative) Influenza A & B Note See Note 10/11/22 Range/Units 21:12 WBC (4.8-10.8) X10*3/uL RBC (4.60-5.80) X10*6/uL Hgb (14.0-18.0) g/dl Hct (42.0-52.0) % MCV (80.0-98.0) fL MCH (27.0-33.0) pg MCHC (31.0-36.0) g/dl RDW (11.0-16.0) % Plt Count (160-400) X10*3/uL MPV (9.4-12.4) fL Immature Gran % (Auto) (0.0-0.4) % Neut % (Auto) (45-73) % Lymph % (Auto) (20-40) % Davie % (Auto) (2-11) % Eos % (Auto) (0-4) % Baso % (Auto) (0-2) % Lymph # (Auto) (1.2-4.9) X10*3/uL Davie # (Auto) (0.1-1.2) X10*3/uL Eos # (Auto) (0.0-0.4) X10*3/uL Baso # (Auto) (0.0-0.2) X10*3/uL Abs Immat Gran (auto) (0.00-0.03) X10*3/uL Absolute Neuts (auto) (2.0-8.3) x10*3/uL Absolute Nucleated RBC (0.0-0.012) X10*3/uL Nucleated RBC % (auto) (0.0-0.2) /100WBC Sodium 139 (135-145) mmol/L Potassium 4.3 (3.3-5.1) mmol/L Chloride 103 (96-108) mmol/L Carbon Dioxide 28 (22-29) mmol/L Anion Gap 12 (12-20) BUN 13 (9-16) mg/dL Creatinine 0.87 (0.5-1.4) mg/dL Estim Creat Clear Calc 134.8 Estimated GFR > 60 Random Glucose 104 (60-115) mg/dL Calcium 9.2 D (8.4-10.2) mg/dL Total Bilirubin 1.9 H (0.0-1.0) mg/dL AST 22 (5-37) U/L ALT 30 (0-40) U/L Alkaline Phosphatase 73 (39-117) U/L Total Protein 7.7 (6.5-8.0) g/dL Albumin 4.5 (3.5-5.0) g/dL COVID-19 ([facility]MA) (Negative) COVID-19 Clin Com Influenza Type A ([facility]SEFINA) (Negative) Influenza Type B (JOSEFINA) (Negative) Influenza A & B Note <Anuel Carson - Last Filed: 10/11/22 22:13> Discharge Plan Discharge Clinical Impression: Abdominal pain <IVY Wilcox - Last Filed: 10/11/22 20:05> Patient Disposition: Home, Self-Care <IVY Wilcox - Last Filed: 10/11/22 20:05> Instructions: Abdominal Pain (ED) <IVY Wilcox - Last Filed: 10/11/22 20:05> Additional Instructions: Your blood work is reassuring. Your pain is most likely related to a viral illness that you may have acquired from your son You may use Zofran for any further nausea or vomiting. Use Motrin or Tylenol for pain You may use [id number] Imodium to help with your diarrhea Increase fluid intake. A diet of bananas, rice, applesauce, toast can help slow down the diarrhea as well Return for new or worsening symptoms <IVY Wilcox - Last Filed: 10/11/22 20:05> Prescriptions: New ondansetron 4 mg tablet,disintegrating 4 mg PO Q8H PRN (Reason: nausea and vomiting) Qty: 20 0RF No Action doxycycline hyclate 100 mg tablet 100 mg PO BID Qty: 20 0RF ibuprofen 600 mg tablet 600 mg PO Q8H PRN (Reason: pain) Qty: 20 0RF oxycodone 5 mg tablet 5 mg PO Q4-6H PRN (Reason: pain) Qty: 5 0RF Rx Instructions: Patient may request fewer tablets than prescribed oseltamivir [Tamiflu] 75 mg capsule 75 mg PO Q12H 5 Days Qty: 10 0RF ibuprofen 600 mg tablet 600 mg PO TID PRN (Reason: fever or pain) Qty: 20 0RF omeprazole 40 mg capsule,delayed release(DR/EC) 40 mg PO DAILY Qty: 30 0RF levofloxacin 750 mg tablet 750 mg PO DAILY 7 Days Qty: 7 0RF doxycycline hyclate 100 mg capsule 100 mg PO BID 10 Days Qty: 20 0RF <IVY Wilcox - Last Filed: 10/11/22 20:05> Stand Alone Forms: Work/School Release <IVY Wilcox Last Filed: 10/11/22 20:05>
[2022-10-11 21:17] LABS: MANUAL DIFF FLAG NO
[2022-10-11 21:29] LABS: COVID-19 Test Negative (Negative); IDNOW Serial# 55D5AD1C
[2022-10-11 21:30] LABS: IDNOW Serial# 9DB6401D; Influenza A Negative (Negative); Influenza B2 Negative (Negative)
[2022-10-11 21:32] LABS: Alanine Aminotransferase 30 U/L (0-40); Albumin Level 4.5 g/dL (3.5-5.0); Alkaline Phosphatase 73 U/L (39-117); Anion Gap 12 (12-20); Aspartate Amino Transferase 22 U/L (5-37); Bilirubin Total 1.9 mg/dL (0.0-1.0); Blood Urea Nitrogen 13 mg/dL (9-16); Calcium 9.2 mg/dL (8.4-10.2); Carbon Dioxide 28 mmol/L (22-29); Chloride 103 mmol/L (96-108); Creatinine Clr Calc Pharmacy 134.8; Estimated Glomerular Filt Rate > 60; Glucose Random 104 mg/dL (60-115); Potassium 4.3 mmol/L (3.3-5.1); Sodium 139 mmol/L (135-145); Total Protein 7.7 g/dL (6.5-8.0)
[2022-10-11 21:44] LABS: Basophils Percent Auto 0.1 % (0-2); Eosinophils Percent Auto 0.2 % (0-4); Hematocrit 48.9 % (42.0-52.0); Hemoglobin 16.3 g/dl (14.0-18.0); Imm Gran Abs Auto 0.03 X10*3/uL (0.00-0.03); Imm Gran Pct Auto 0.3 % (0.0-0.4); Lymphocytes Absolute Auto 0.9 X10*3/uL (1.2-4.9); Lymphocytes Percent Auto 10.1 % (20-40); Mean Corpuscular HGB Conc 33.3 g/dl (31.0-36.0); Mean Corpuscular Hemoglobin 26.5 pg (27.0-33.0); Mean Corpuscular Volume 79.6 fL (80.0-98.0); Mean Platelet Volume 9.6 fL (9.4-12.4); Monocytes Absolute Auto 0.8 X10*3/uL (0.1-1.2); Monocytes Percent Auto 8.4 % (2-11); Neutrophils Absolute Auto 7.4 x10*3/uL (2.0-8.3); Neutrophils Percent Auto 80.9 % (45-73); Platelet Count 245 X10*3/uL (160-400); Red Blood Count 6.14 X10*6/uL (4.60-5.80); Red Cell Distribution Width 14.3 % (11.0-16.0); White Blood Count 9.2 X10*3/uL (4.8-10.8)
[2022-10-11] MEDS: Ondansetron ODT 4 MG TAB.RAPDIS TRANSLINGU (22:05)
[2022-10-11] MEDS: NaPROXEN 500 MG TABLET PO (22:05)
== END 2022-10-11 22:24 | disposition home or self-care (01) ==
PROVIDERS: Physician Assistant; Emergency Provider Emergency Medicine
DX: R10.9 Unspecified abdominal pain (principal); R51.9 Headache, unspecified; Z20.822 Contact with and (suspected) exposure to COVID-19
CPT/HCPCS: 36415; 80053; 85025; 87502; 87635; 99283

== ENCOUNTER 2023-01-22 12:56 | Outpatient (REF) | payer MEDICAID, SELFPAY ==
--- NOTE | ~2023-01-22 | US_ITS ---
EXAMINATION: US SCROTUM CLINICAL INFORMATION: Testicular pain x 3 months. COMPARISON: CT abdomen and pelvis from 01/19/2022. TECHNIQUE: A sonogram of the scrotum was performed assessing martinez-scale appearance and color Doppler flow. Spectral Doppler analysis of the arterial and venous flow were performed in the testes bilaterally. FINDINGS: The right testicle measures 4.7 x 2.7 x 2.9 cm, volume 19.2 mL and left testicle measures 3.8 x 2.7 x 3.0 cm, volume 16.1 mL. Both testicles have normal echotexture. No microlithiasis or mass. Normal arterial and venous waveforms are observed on Doppler imaging of each testicle. No hydrocele or varicocele. No extratesticular mass. Small 0.5 cm simple cyst is present in the left epididymal head. Otherwise, each epididymis is unremarkable. US/US scrotum IMPRESSION: * No specific source of testicular pain is identified. No evidence of epididymitis or testicular mass. * Incidentally noted is a small 0.5 cm cyst of the left epididymal head.
== END 2023-01-22 12:57 | disposition home or self-care (01) ==
LOC: HO.US 12:56
PROVIDERS: Visit Provider General Practice
DX: R10.30 Lower abdominal pain, unspecified (principal)
CPT/HCPCS: 76870

== ENCOUNTER 2023-12-03 12:47 | Outpatient (REF) | payer MEDICAID, SELFPAY ==
--- NOTE | ~2023-12-03 | US_ITS ---
EXAMINATION: US SOFT TISSUE HEAD/NECK CLINICAL INFORMATION: Patient with oropharyngeal dysphagia for 3 years to rule out neck masses. COMPARISON: None available. TECHNIQUE: Linear transducer martinez-scale and color Doppler examination of the submandibular area right, left, midline. FINDINGS: Targeted ultrasound images were obtained by the video journalist of the area of concern as indicated by the patient in the bilateral and midline submandibular regions and demonstrated no discrete mass or fluid collection. Radiologist was not in attendance. Images were later provided for interpretation. US/US soft tiss head and/or neck IMPRESSION: No discrete mass or fluid collection identified in the area of concern as indicated by the patient in the bilateral and midline submandibular regions. Additional imaging with CT scan could be considered if there is clinical concern as not all studies are demonstrated on ultrasound studies.
== END 2023-12-03 12:48 | disposition home or self-care (01) ==
LOC: HO.US 12:47
PROVIDERS: Visit Provider Student in an Organized Health Care Education/Training Program
DX: R13.12 Dysphagia, oropharyngeal phase (principal)
CPT/HCPCS: 76536

== ENCOUNTER 2024-01-28 08:18 | Outpatient (REF) | payer MEDICAID, SELFPAY ==
--- NOTE | ~2024-01-28 | FL_ITS ---
EXAMINATION: XR FLUOROSCOPY UPPER GI WITH AIR CLINICAL INFORMATION: Dysphagia COMPARISON: None TECHNIQUE: Fluoroscopic air contrast upper GI examination was performed utilizing standard techniques with thin and thick barium and effervescent granules. Numerous spot images were obtained. FINDINGS: Lateral cine images of the oropharynx and hypopharynx demonstrate normal swallow mechanism with normal epiglottic inversion and soft palate elevation. No tracheal penetration, glottic or subglottic aspiration identified. No nasopharyngeal reflux present. Hypopharyngeal structures appear normal without evidence of mass or diverticulum. There was no significant cricopharyngeal achalasia. Dual and single contrast images of the esophagus demonstrate normal caliber, contour, and mucosal pattern. No evidence of stricture, mass, or ulcerations identified. Esophageal peristalsis is mildly disorganized. Surgical clips are present in the right upper quadrant. No evidence of hiatus hernia identified. Significant gastroesophageal reflux is seen up to the thoracic inlet. Dual contrast and single contrast images of the stomach demonstrated normal contour and mucosal pattern without evidence of mass, ulceration, or other abnormality. Contrast freely passed into the gastric antrum and duodenal bulb without delay. Single and air-contrast images of the duodenal bulb demonstrate no abnormality. The duodenal sweep has a normal appearance, course, and mucosal fold appearance. The imaged proximal jejunum has a normal fold pattern and caliber. FLUOROSCOPY TIME: 3 minutes 35 seconds Number of Spot Images: 11 Number of Cine: 16 DOSE AREA PRODUCT: 2684 uGy-m2 (microgray-meter squared) FL/FL barium swallow IMPRESSION: 1. Mildly disorganized esophageal peristalsis 2. Significant gastroesophageal reflux 3. Status post cholecystectomy This procedure was performed by Anuel Bryant PA-C, and supervised by Dr. Rubin
== END 2024-01-28 08:19 | disposition home or self-care (01) ==
LOC: HO.XRAY 08:18
PROVIDERS: PCP Student in an Organized Health Care Education/Training Program; Visit Provider Student in an Organized Health Care Education/Training Program
DX: R13.12 Dysphagia, oropharyngeal phase (principal)
CPT/HCPCS: 74220

== ENCOUNTER → 2024-01-28 08:18 | Outpatient (BNV) | payer MEDICAID, SELFPAY | PROVIDERS: PCP Student in an Organized Health Care Education/Training Program; Visit Provider Physician Assistant Surgical | DX: R13.10 Dysphagia, unspecified (principal) | CPT/HCPCS: 74246 ==

== ENCOUNTER 2024-02-04 14:05 | Outpatient (REF) | payer MEDICAID, SELFPAY ==
[2024-02-04 16:03] LABS: MANUAL DIFF FLAG NO
[2024-02-04 16:24] LABS: Basophils Percent Auto 0.5 % (0-2); Eosinophils Absolute Auto 0.1 X10*3/uL (0.0-0.4); Eosinophils Percent Auto 0.8 % (0-4); Hematocrit 48.7 % (42.0-52.0); Hemoglobin 16.1 g/dl (14.0-18.0); Imm Gran Abs Auto 0.03 X10*3/uL (0.00-0.03); Imm Gran Pct Auto 0.5 % (0.0-0.4); Lymphocytes Percent Auto 30.2 % (20-40); Mean Corpuscular HGB Conc 33.1 g/dl (31.0-36.0); Mean Corpuscular Hemoglobin 27.2 pg (27.0-33.0); Mean Corpuscular Volume 82.1 fL (80.0-98.0); Mean Platelet Volume 9.8 fL (9.4-12.4); Monocytes Absolute Auto 0.6 X10*3/uL (0.1-1.2); Monocytes Percent Auto 8.4 % (2-11); Neutrophils Absolute Auto 3.9 x10*3/uL (2.0-8.3); Neutrophils Percent Auto 59.6 % (45-73); Platelet Count 264 X10*3/uL (160-400); Red Blood Count 5.93 X10*6/uL (4.60-5.80); Red Cell Distribution Width 13.9 % (11.0-16.0); White Blood Count 6.5 X10*3/uL (4.8-10.8)
[2024-02-04 16:34] LABS: Estimated Average Glucose 103 mg/dL; Hemoglobin A1c % 5.2 % (<6.0)
[2024-02-04 16:51] LABS: Alanine Aminotransferase 23 U/L (0-40); Albumin Level 4.4 g/dL (3.5-5.0); Alkaline Phosphatase 90 U/L (39-117); Anion Gap 13 (12-20); Aspartate Amino Transferase 20 U/L (5-37); Bilirubin Total 0.7 mg/dL (0.0-1.0); Blood Urea Nitrogen 19 mg/dL (9-16); Calcium 9.8 mg/dL (8.4-10.2); Carbon Dioxide 26 mmol/L (22-29); Chloride 105 mmol/L (96-108); Cholesterol 188 mg/dL (<200); Estimated Glomerular Filt Rate > 60; Glucose Random 97 mg/dL (60-115); HDL Cholesterol 51 mg/dL (>40); LDL Cholesterol Calculated 99 mg/dL (<100); Potassium 3.9 mmol/L (3.3-5.1); Sodium 140 mmol/L (135-145); Triglycerides 190 mg/dL (<150)
[2024-02-04 16:54] LABS: TSH reflex Free T4 1.44 uIU/mL (0.32-4.0)
[2024-02-04 19:09] LABS: Reflex LDLD? No
[2024-02-05 08:09] LABS: HBS Num1 0.66 mIU/mL (0-7.99); HBsAGNum1 0.25 S/CO (0.00-0.99); HIV AB/AG Nonreactive (Nonreactive); HIV Num 1 0.06 S/CO (0.00-0.99); Hepatitis A Antibody IgM 0.17 Index (0-0.79); Hepatitis B Core Antibody Nonreactive (Nonreactive); Hepatitis B Surface Antigen Negative (Negative); ~HepC Num1 0.16 S/CO (0.00-0.79); ~Hepatitis A Antibody IgM Nonreactive (Nonreactive); ~Hepatitis B Surface Antibody NONREACTIVE (Nonreactive); ~Hepatitis C Antibody Nonreactive (Nonreactive)
[2024-02-05 12:23] LABS: RPR Rapid Plasma Reagin NON-REACTIVE (NON-REACTIVE)
== END 2024-02-04 14:06 | disposition home or self-care (01) ==
LOC: HO.HHCL 14:05
PROVIDERS: Visit Provider Internal Medicine
DX: Z11.4 Encounter for screening for human immunodeficiency virus [HIV] (principal); R53.82 Chronic fatigue, unspecified
CPT/HCPCS: 36415; 80053; 80061; 82306; 83036; 84443; 85025; 86592; 86704; 86706; 86709; 86803; 87340; 87389

== ENCOUNTER 2024-05-23 11:21 | Emergency (ER) | payer MEDICAID, SELFPAY ==
--- NOTE | ~2024-05-23 | XR_ITS ---
EXAMINATION: XR HUMERUS, LEFT CLINICAL INFORMATION: fall, pain COMPARISON: None available. TECHNIQUE: AP and lateral views of the left humerus. FINDINGS: The bones and soft tissues are normal. No fracture. Imaged portions of the shoulder and elbow are unremarkable. XR/XR humerus LT IMPRESSION: Normal left humerus. Electronically signed by: Shelby Gomez MD 05/23/2024 02:29 PM EST
--- NOTE | ~2024-05-23 | XR_ITS ---
EXAMINATION: XR SHOULDER, LEFT CLINICAL INFORMATION: fal, pain COMPARISON: None available. TECHNIQUE: Three views of the left shoulder. FINDINGS: The bones and soft tissues are normal. No fracture. Glenohumeral and acromioclavicular alignment is anatomic with normal joint space. No abnormal soft tissue calcifications. XR/XR shoulder LT min 2V IMPRESSION: Normal left shoulder. Electronically signed by: Shelby Gomez MD 05/23/2024 02:30 PM EFRAÍN DOBSON
--- NOTE | ~2024-05-23 | XR_ITS ---
EXAMINATION: XR ELBOW, LEFT CLINICAL INFORMATION: fall, pain COMPARISON: None available. TECHNIQUE: AP, lateral, and oblique views of the left elbow. FINDINGS: The bones and soft tissues are normal. No fracture or joint effusion. Alignment is anatomic. Joint spaces are maintained. XR/XR elbow LT min 3V IMPRESSION: Normal left elbow. Electronically signed by: Shelby Gomez MD 05/23/2024 02:29 PM EST
--- NOTE | ~2024-05-23 | XR_ITS ---
EXAMINATION: XR RIBS, LEFT CLINICAL INFORMATION: fall, left rib pain COMPARISON: None available. TECHNIQUE: 3 views of the left ribs were obtained. FINDINGS: Lungs are clear. No consolidation, pneumothorax, or pleural effusion. The cardiomediastinal silhouette and pulmonary vasculature are normal. Osseous structures are unremarkable. Ribs are intact. No fractures are identified. XR/XR ribs LT min 3V w CXR1V IMPRESSION: Unremarkable examination. Electronically signed by: Dana Jamil MD 05/23/2024 01:31 PM EST
[2024-05-23 11:25] VITALS: BP 150/93; PULSE 89; RESP 19; TEMP 36.6; O2SAT 98; BMI 42.5
--- NOTE | 2024-05-23 11:25 | ED_ITS ---
HPI - Fall General Chief Complaint: Fall Stated Complaint: fell back and l side arm elbow inj Time Seen by Provider: 05/23/24 13:36 Source: patient Mode of arrival: ambulatory Limitations: no limitations History of Present Illness ED Provider: ANI PAPPAS PA-C HPI Narrative: 33 year old male with no significant pmhx presents to the ED today for evaluation of rib and shoulder pain s/p mechanical slip and fall yesterday. Patient states was walking down the stairs outside of his house yesterday when he slipped on water once he reached the bottom, causing him to fall back. He reports landing on his left side/ back. He denies head strike or LOC. Not on anticoagulation. Since this time reports pain to this left mid back/ left posterior rib area, left shoulder and left elbow. Denies any difficulty moving the left extremity. Pain is exacerbated with movement, coughing, and breathing. Denies numbness/tingling/weakness of the LUE. Denies cough, hemoptysis, sob, dyspnea. Denies headache, dizziness, vision changes, neck pain. Related Data Previous Rx's ?Medication ?Instructions ?Recorded doxycycline hyclate 100 mg tablet 100 mg PO BID #20 tabs 04/08/21 ibuprofen 600 mg tablet 600 mg PO Q8H PRN pain #20 tabs 04/08/21 oxycodone 5 mg tablet 5 mg PO Q4-6H PRN pain #5 tabs 04/08/21 ibuprofen 600 mg tablet 600 mg PO TID PRN fever or pain 09/07/21 #20 tabs oseltamivir 75 mg capsule (Tamiflu) 75 mg PO Q12H 5 days #10 caps 09/07/21 omeprazole 40 mg capsule,delayed 40 mg PO DAILY #30 caps 01/19/22 release doxycycline hyclate 100 mg capsule 100 mg PO BID 10 days #20 caps 09/11/22 levofloxacin 750 mg tablet 750 mg PO DAILY 7 days #7 tabs 09/11/22 ondansetron 4 mg disintegrating 4 mg PO Q8H PRN nausea and 10/11/22 tablet vomiting #20 tabs cyclobenzaprine 5 mg tablet 5 mg PO Q8H #7 tabs 05/23/24 lidocaine 5 % topical patch 1 patch topical DAILY #15 ea 05/23/24 (Lidoderm) Allergies Allergy/AdvReac Type Severity Reaction Status Date / Time vancomycin Allergy Itching Verified 05/23/24 11:27 Review of Systems Review of Systems: Constitutional: No fever, chills, fatigue, night sweats, weight changes ENT/Mouth: No ear pain, hearing loss, nasal congestion, sinus pain, rhinorrhea, sore throat Eyes: No eye pain, swelling, redness, vision changes, discharge Cardio: No chest pain, palpitations, HUANG, orthopnea, peripheral edema Pulm: No SOB, cough, sputum, wheezing, dyspnea, hemoptysis GI: No nausea, vomiting, hematemesis, abdominal pain, diarrhea, constipation, hematochezia, melena : No irregular bleeding, dysuria, frequency, urgency, hesitancy, hematuria, fl ank pain, urinary flow changes, urinary incontinence or retention MSK: No back pain, neck pain, joint pain, myalgias, +left rib/ back/ shoulder/ elbow pain Skin: No lesions, rashes Neuro: No weakness, numbness, paresthesias, LOC, dizziness, headache Psych: No anxiety/panic, depression, SI/HI, AH/VH All other systems reviewed and are negative. [facility] Past Medical History Attestation statement: The following information was validated with the patient. Source: old records reviewed and nursing notes reviewed Surgical History S/P appendectomy History of bladder surgery Social History Social History Alcohol intake: never Patient Tobacco Use Status: Never used Tobacco Advance Directives: No Advance Directives Information Provided: No Do you have a plan to hurt others: No Plan Physical Exam Vital Signs: Vital Signs: Last Vital Signs Temp 98.3 F 05/23/24 16:15 Pulse 88 05/23/24 16:15 Resp 20 05/23/24 16:15 BP 148/82 H 05/23/24 16:15 Pulse Ox 98 05/23/24 16:15 O2 Del Method Room Air 05/23/24 16:15 BMI result Body Mass Index 42.5 hypertensive, vitals otherwise wnl General: Well appearing, in no acute distress. Skin: Warm, dry, intact. No rashes or lesions. Head: Normocephalic, atraumatic. no palpable skull fracture or hematoma. no battles sign. EENT: Hearing is intact b/l. Conjunctiva clear. PERRLA. EOM intact. Moist mucous membranes.? Neck: no midline cervical tenderness or step off Cardiac: RRR. +ttp over left lateral/ posterior chest wall without palpable deformity or crepitus. Symmetric rise and fall of chest. Lungs: Normal respiratory effort without accessory muscle use. CTA bilaterally. Equal breath sounds bilaterally. Back: No midline spinous or paraspinal tenderness. No step off deformity. Ext: +no deformity/ skin changes/ swelling to L shoulder. FROM intact to L shoulder w/o pain. minimal ttp over anterior left shoulder w/o palpable deformity. 2+ radial/ ulnar pulse intact. Neuro: AOx3. Normal speech. Strength 5/5 intact throughout. Sensation intact to light touch. NV intact distally. Ambulating with steady gait. Psych: Appropriate mood and affect. Responds appropriately to questions. Course Course Course Narrative: This is a rapid medical exam. Deferred additional HPI, ROS, PE to primary provider. 33 yo male healthy here with complaints of slip and fall on ice hitting left ribs and left posterior shoulder/LUE. Denies hitting head or LOC. Will obtain x-rays DANNIELLE -José Antonio Garcia APRN Reevaluation(s) Reevaluation #1: 0274 - xrs unremarkable. Patient has remained stable throughout ED visit today. Discussed worrisome signs and symptoms and when to return to the ED. All questions answered at this time. Patient is agreeable with disposition and stable for discharge. Medications Administered Discontinued Medications Generic Name Dose Route Start Last Admin Trade Name Deonte PRN Reason Stop Dose Admin Ketorolac Tromethamine 30 mg 05/23/24 14:26 05/23/24 15:05 Ketorolac Tromethamine 30 Mg/Ml Vial IM 05/23/24 14:27 30 mg ONCE ONE Administration Lidocaine 1 patch 05/23/24 14:26 05/23/24 15:04 Lidocaine 4 % Patch Adh..Patch TRANSDERMA 05/23/24 14:27 1 patch ONCE ONE Administration Protocol Medical Decision Making Medical Decision Making MDM Narrative: 33 year old male with no significant pmhx presents to the ED today for evaluation of rib and shoulder pain s/p mechanical slip and fall yesterday. Patient is hypertensive, his vitals are otherwise wnl. exam is significant for ttp over left lateral/ posterior chest wall without palpable deformity or cr epitus. Symmetric rise and fall of chest. lungs are clear with equal breath sounds bilaterally. no deformity/ skin changes/ swelling to L shoulder. FROM intact to L shoulder w/o pain. minimal ttp over anterior left shoulder w/o palpable deformity. 2+ radial/ ulnar pulse intact. Differential diagnosis includes contusion, msk sprain/ strain, pneumothorax, pneumonia, rib fracture, rib contusion, shoulder strain/ sprain, shoulder fracture. Unlikely flail chest, nv compromise, threat to limb, compartment syndrome. Plan for imaging, pain control, and re-evaluation. Differential Diagnosis Differential Diagnoses: The differential diagnosis associated with the presentation includes as above. Admission/Observation Not indicated Independent Interpretation I performed an independent interpretation of an: Plain X-Ray Interpretation: xr left shoulder/ humerus/ elbow without fracture xr ribs without fracture or pneumothorax Radiology Impression Discussion of test interpretation with radiology: I have reviewed the radiologist's reading. Radiologist Impression: EXAMINATION: XR HUMERUS, LEFT CLINICAL INFORMATION: fall, pain COMPARISON: None available. TECHNIQUE: AP and lateral views of the left humerus. FINDINGS: The bones and soft tissues are normal. No fracture. Imaged portions of the shoulder and elbow are unremarkable. XR/XR humerus LT IMPRESSION: Normal left humerus. Electronically signed by: Shelby Gomez MD 05/23/2024 02:29 PM EST RP EXAMINATION: XR RIBS, LEFT CLINICAL INFORMATION: fall, left rib pain COMPARISON: None available. TECHNIQUE: 3 views of the left ribs were obtained. FINDINGS: Lungs are clear. No consolidation, pneumothorax, or pleural effusion. The cardiomediastinal silhouette and pulmonary vasculature are normal. Osseous structures are unremarkable. Ribs are intact. No fractures are identified. XR/XR ribs LT min 3V w CXR1V IMPRESSION: Unremarkable examination. Electronically signed by: Dana Jamil MD 05/23/2024 01:31 PM EST RP EXAMINATION: XR SHOULDER, LEFT CLINICAL INFORMATION: fal, pain COMPARISON: None available. TECHNIQUE: Three views of the left shoulder. FINDINGS: The bones and soft tissues are normal. No fracture. Glenohumeral and acromioclavicular alignment is anatomic with normal joint space. No abnormal soft tissue calcifications. XR/XR shoulder LT min 2V IMPRESSION: Normal left shoulder. Electronically signed by: Shelby Gomez MD 05/23/2024 02:30 PM EST RP EXAMINATION: XR ELBOW, LEFT CLINICAL INFORMATION: fall, pain COMPARISON: None available. TECHNIQUE: AP, lateral, and oblique views of the left elbow. FINDINGS: The bones and soft tissues are normal. No fracture or joint effusion. Alignment is anatomic. Joint spaces are maintained. XR/XR elbow LT min 3V IMPRESSION: Normal left elbow. Electronically signed by: Shelby Goemz MD 05/23/2024 02:29 PM EST RP External Record Review External record reviewed: Inpatient record Prescription Management I considered prescription management with: Pain Medication Social Determinants Patient?s care significantly limited by Social Determinants of Health including: Other Social Determinant of Health Critical Care Time Critical Care Time Critical Care Time: No Discharge Plan Discharge Clinical Impression: Contusion of rib on left side Patient Disposition: Home, Self-Care Instructions: Contusion in Adults (ED) Additional Instructions: You were evaluated in the Emergency Department today following a slip and fall. Your evaluation did not show signs of medical conditions requiring emergent intervention at this time. Your xrays are all normal. Avoid bending, lifting, or twisting. Use ice several times per day for 20 minutes at a time for the next 48 hours and then change to heat. We recommend you take 600mg ibuprofen every 6 hours or tylenol 650mg every 6 hours as needed for pain. If needed, you can alternate these medications so that you take one medication every 3 hours. For example, at noon take ibuprofen, then at 3pm take tylenol, then at 6pm take ibuprofen. Flexeril is a muscle relaxer. Take this at night as it makes you drowsy. Do not drive, drink alcohol, or operate machinery while taking it. Lidoderm patches are numbing patches. Apply to painful areas. Please schedule an appointment for follow-up with your primary care provider this week for further evaluation of your symptoms. Return to the Emergency Department if you experience worsening back pain, difficulty walking, fevers, numbness, tingling, incontinence, or any other concerning symptoms. In the case of an emergency call 911. Prescriptions: New cyclobenzaprine 5 mg tablet 5 mg PO Q8H Qty: 7 0RF lidocaine [Lidoderm] 5 % adhesive patch,medicated 1 patch topical DAILY Qty: 15 0RF Rx Instructions: leave on most painful area for up to 12 hrs No Action doxycycline hyclate 100 mg tablet 100 mg PO BID Qty: 20 0RF ibuprofen 600 mg tablet 600 mg PO Q8H PRN (Reason: pain) Qty: 20 0RF oxycodone 5 mg tablet 5 mg PO Q4-6H PRN (Reason: pain) Qty: 5 0RF Rx Instructions: Patient may request fewer tablets than prescribed oseltamivir [Tamiflu] 75 mg capsule 75 mg PO Q12H 5 Days Qty: 10 0RF ibuprofen 600 mg tablet 600 mg PO TID PRN (Reason: fever or pain) Qty: 20 0RF omeprazole 40 mg capsule,delayed release(DR/EC) 40 mg PO DAILY Qty: 30 0RF levofloxacin 750 mg tablet 750 mg PO DAILY 7 Days Qty: 7 0RF doxycycline hyclate 100 mg capsule 100 mg PO BID 10 Days Qty: 20 0RF ondansetron 4 mg tablet,disintegrating 4 mg PO Q8H PRN (Reason: nausea and vomiting) Qty: 20 0RF Referrals: Ese Bruce MD [Primary Care Provider] - 3 days Stand Alone Forms: Work/School Release Interventions: ED Discharge Assessment Last Done: 05/23/24 16:15 Discharge Date/Time: 05/23/24 16:17 Print Language: Setswana
[2024-05-23] MEDS: Lidocaine 4 % Patch ADH..PATCH 1 PATCH TRANSDERMA (15:04)
[2024-05-23] MEDS: Ketorolac Tromethamine 30 MG/ML VIAL IM (15:05)
[2024-05-23 15:24] VITALS: BP 148/82; PULSE 88; RESP 20; TEMP 36.8; O2SAT 98
[2024-05-23 16:15] VITALS: BP 148/82; PULSE 88; RESP 20; TEMP 36.8; O2SAT 98
== END 2024-05-23 16:17 | disposition home or self-care (01) ==
PROVIDERS: Emergency Provider Emergency Medicine Emergency Medical Services; PCP Student in an Organized Health Care Education/Training Program
DX: S20.212A Contusion of left front wall of thorax, initial encounter (principal); W10.8XXA Fall (on) (from) other stairs and steps, initial encounter; Y93.89 Activity, other specified; Y92.038 Other place in apartment as the place of occurrence of the external cause; Y99.9 Unspecified external cause status
CPT/HCPCS: 71101; 73030; 73060; 73080; 96372; 99283; 99284; J1885

== ENCOUNTER 2024-11-15 11:21 | Emergency (ER) | payer MEDICAID, SELFPAY ==
--- NOTE | ~2024-11-15 | XR_ITS ---
CLINICAL HISTORY: pain, injury 3 view right shoulder Comparison: None Findings: No fractures or dislocations. No significant arthritic change. No erosions. No radiopaque foreign body. IMPRESSION: 1. No acute findings This document has been electronically signed by: Jose Francisco Garcia MD on 11/15/2024 12:15:42
--- NOTE | 2024-11-15 11:28 | ED_ITS ---
HPI - General Adult General Chief complaint: Extremity Injury, Upper Stated complaint: R shoulder pain Time Seen by Provider: 11/15/24 11:30 Source: patient Mode of arrival: ambulatory Limitations: no limitations History of Present Illness ED Provider: Chanel Patrick PA-C HPI narrative: Patient is a 34 year old assigned male at with no reported medical history presenting to the emergency department today with right shoulder pain. Patient states that yesterday, 11/14/2024, he lifted a heavy box and felt / heard a pop in his right shoulder and has had pain ever since. Patient denies any dizziness, lightheadedness, abdominal pain, nausea, vomiting, fever, chills, blurry vision, double vision, loss of vision, chest pain, difficulty breathing, shortness of breath, back pain, night sweats, pain with urination, increased urinary frequency, increased urinary urgency, blood in his urine or stool, syncope or a near syncopal episode, bowel incontinence, bladder incontinence, or any other complaints at this time. Onset (ago): day(s) (1) Location: right and upper extremity Relieving factors: none Exacerbating factors: movement Associated symptoms: denies other symptoms Treatments prior to arrival: none Related Data Previous Rx's ?Medication ?Instructions ?Recorded doxycycline hyclate 100 mg tablet 100 mg PO BID #20 tabs 04/08/21 ibuprofen 600 mg tablet 600 mg PO Q8H PRN pain #20 tabs 04/08/21 oxycodone 5 mg tablet 5 mg PO Q4-6H PRN pain #5 tabs 04/08/21 ibuprofen 600 mg tablet 600 mg PO TID PRN fever or pain 09/07/21 #20 tabs oseltamivir 75 mg capsule (Tamiflu) 75 mg PO Q12H 5 days #10 caps 09/07/21 omeprazole 40 mg capsule,delayed 40 mg PO DAILY #30 caps 01/19/22 release doxycycline hyclate 100 mg capsule 100 mg PO BID 10 days #20 caps 09/11/22 levofloxacin 750 mg tablet 750 mg PO DAILY 7 days #7 tabs 09/11/22 ondansetron 4 mg disintegrating 4 mg PO Q8H PRN nausea and 10/11/22 tablet vomiting #20 tabs cyclobenzaprine 5 mg tablet 5 mg PO Q8H #7 tabs 05/23/24 lidocaine 5 % topical patch 1 patch topical DAILY #15 ea 05/23/24 (Lidoderm) cyclobenzaprine 5 mg tablet 5 mg PO TID PRN pain 7 days #21 11/15/24 tabs prednisone 20 mg tablet 20 mg PO DAILY 7 days #7 tabs 11/15/24 Allergies Allergy/AdvReac Type Severity Reaction Status Date / Time vancomycin Allergy Itching Verified 11/15/24 11:31 Review of Systems Constitutional: Constitutional: Reports no additional constitutional compl aints, Denies chills, Denies fever(s) and Denies night sweats Eyes: Eyes: Reports no additional eye complaints, Denies blurry vision, Denies change in vision, Denies diplopia, Denies eye discharge, Denies loss of vision and Denies eye pain ENT: Denies dizziness Cardiovascular: Cardiovascular: Reports no additional cardiovascular complaints, Denies chest pain, Denies lightheadedness, Denies Loss of Consciousness and Denies dyspnea Respiratory: Respiratory: Reports no additional respiratory complaints and Denies dyspnea Gastrointestinal: Gastrointestinal: Reports no additional gastrointestinal complaints, Denies abdominal pain, Denies melena, Denies hematochezia, Denies change in bowel habits and Denies change in stool character Genitourinary: Genitourinary: Reports no additional male genitourinary complaints, Denies hematuria, Denies oliguria, Denies difficulty urinating, Denies dysuria, Denies urinary frequency, Denies urinary hesitancy, Denies urinary incontinence and Denies urinary urgency Musculoskeletal: Musculoskeletal: Reports no additional musculoskeletal complaints, Denies numbness and Denies tingling Comments: right shoulder pain Neurologic: Denies dizziness, Denies loss of vision, Denies numbness and Denies tingling Psychiatric: Psychiatric: Reports no additional psychiatric complaints Endocrine: Endocrine: Reports no additional endocrine complaints Hematologic/Lymphatic: Hematologic/Lymphatic: Reports no additional hematologic/lymphatic complaints Allergic/Immunologic: Allergic/Immunologic: Reports no additional allergic/immunologic complaints PMFSH Past Medical History Attestation statement: The following information was validated with the patient. Source: old records reviewed and nursing notes reviewed Surgical History S/P appendectomy History of bladder surgery Social History Social History Alcohol intake: never Patient Tobacco Use Status: Never used Tobacco Advance Directives: No Advance Directives Information Provided: Yes Do you have a plan to hurt others: No Plan Physical Exam ED Vital Signs: Vital Signs - 24 hr 11/15/24 11:29 11/15/24 12:24 Temperature 97.4 F 97.4 F Pulse Rate 99 99 Respiratory Rate 18 18 Blood Pressure 141/100 H 141/100 H Pulse Oximetry 97 97 Oxygen Delivery Method Room Air Room Air BMI result Body Mass Index 43.3 Const General: cooperative, no acute distress, alert and awake Nutritional Appearance: well nourished Orientation/consciousness: patient oriented x3 HENMT Head: Yes normal to inspection and Yes atraumatic Ears: hearing grossly normal bilaterally and external ears normal General nose exam: Normal external nose present, no nasal discharge noted and no epistaxis Face and sinus: Yes normal facial exam, No abrasion and No laceration Mouth: Normal oral and palatal mucosa present, no drooling and no muffled voice Eyes General: appearance normal, both eyes and all related structures Periorbital: periorbital findings normal Eyelids: Yes eyelids normal Conjunctivae: conjunctivae normal Pupils: Equal, round and reactive pupils present EOM: EOMs intact bilaterally Neck Neck: Yes normal visual inspection, Yes full ROM and Yes no lymphadenopathy Resp Effort & Inspection: normal respiratory effort and able to speak in complete sentences Neuro General: patient oriented x3, moves all extremities and CN's II-XI intact bilaterally Cranial nerves: Yes Equal, round and reactive pupils present Cognition (Neuro): normal cognition Extrem Other: decreased right shoulder ROM secondary to pain General: Yes normal to inspection and Yes capillary refill normal Psych Appearance: grossly normal Mental Status: mental status grossly normal Affect: normal affect Attitude: cooperative Thought process: Normal thought process present Thought content: Normal thought content present Insight: Good insight present (Psych) Course Course Course Narrative: RME performed by Chanel Patrick PA-C. Patient is a 34 year old assigned male at presenting to the emergency department with right shoulder pain. Patient states he helped his lift up a box yesterday and now he has is having significant right sided shoulder pain. Detailed physical exam and review of systems are deferred to the assistant tennis coach. Imaging ordered. Patient placed back in the waiting room pending room availability and results. Medications Administered Discontinued Medications Generic Name Dose Route Start Last Admin Trade Name Freq PRN Reason Stop Dose Admin Ketorolac Tromethamine 15 mg 11/15/24 11:47 11/15/24 11:56 Ketorolac Tromethamine 15 Mg/Ml Vial IM 11/15/24 11:48 15 mg ONCE ONE Administration Medical Decision Making Medical Decision Making [facility] Narrative: Patient is a 34 year old assigned male at with no reported medical history presenting to the emergency department today with right shoulder pain. Patient's physical exam was as noted in the physical exam portion of this note. Patient's right shoulder x-ray showed no acute process. I explained my physical exam findings as well as all test results to the patient. I answered all questions asked by the patient. I stressed the importance of the patient taking his medication as directed (either prescribed or as the over the counter packaging recommends). I stressed the importance of the patient following up with his primary care provider and the orthopedic team. I stressed the importance of the patient returning to the emergency department immediately if his symptoms were to worsen or if he were to develop any dizziness, shortness of breath, difficulty breathing, chest pain, blurry vision, loss of vision, nausea, vomiting, abdominal pain, fever, chills, back pain, or any other complaints. Patient verbalized agreement and understanding with this treatment plan and discharge. Differential Diagnosis Differential Diagnoses: The differential diagnosis associated with the presentation includes Right rotator cuff injury Right shoulder pain Right shoulder strain Right shoulder sprain Admission/Observation Consideration of admission/observation: Escalation of care including admission/observation considered Patient would have been admitted to the hospital had his work up had any findings where hospital admission was appropriate and his clinical presentation warranted hospital admission. Independent Interpretation I performed an independent interpretation of an: Plain X-Ray Interpretation: My interpretation is in agreement with the radiologist's impression of this imaging study. CLINICAL HISTORY: pain, injury 3 view right shoulder Comparison: None Findings: No fractures or dislocations. No significant arthritic change. No erosions. No radiopaque foreign body. IMPRESSION: 1. No acute findings This document has been electronically signed by: Jose Francisco Garcia MD on 11/15/2024 12:15:42 Dictated By: Jose Francisco Garcia MD Signed By: Electronically signed by Jose Francisco Garcia MD 11/15/24 1217 Radiology Impression Discussion of test interpretation with radiology: I have reviewed the radiologist's reading. Discharge Plan Discharge Clinical Impression: Acute shoulder pain, Injury of right rotator cuff Patient Disposition: Home, Self-Care Instructions: Rotator Cuff Injury (ED), Shoulder Pain (ED), Rotator Cuff Injury Exercises (DC) Additional Instructions: Your clinical presentation / symptoms is most concerning for a right rotator cuff injury. Follow up with your primary care provider and the orthopedic team. Do NOT use a sling - this can cause a frozen shoulder and makes recovery much more difficult and painful. Return to the emergency department immediately if your symptoms worsen or if you develop any numbness, tingling, dizziness, shortness of breath, difficulty breathing, chest pain, blurry vision, loss of vision, nausea, vomiting, abdominal pain, fever, chills, back pain, or any other complaints. Please see the information below about our Patient Portal. If you are not yet enrolled in the [facility] Patient Portal, you will receive an enrollment email invitation following your visit to any [facility] setting. You may also self-enroll in the Patient Portal by visiting our website: [email or web address] The following information is required to access the Patient Portal: - Your [facility] Medical Record Number - Your personal home email address (must match what is in your electronic medical record, Registration staff can assist with this) - Name - Date of Capabilities of the Patient Portal: - Message some providers - View upcoming appointments - Access your health summary, medical history, and visit history - View current conditions and allergies - View procedure and lab results - View your medications, including guidelines, side effects, and precautions - Complete pre-appointment questionnaires requested by your provider - Ready summary reports of your office visits and procedures To access the Patient Portal Mobile Marium, follow these directions: - Search [employer] in the Marium Store or Google Play Store - Download the Marium - Search for [facility] - Enter your login/password Prescriptions: New cyclobenzaprine 5 mg tablet 5 mg PO TID PRN (Reason: pain) 7 Days Qty: 21 0RF prednisone 20 mg tablet 20 mg PO DAILY 7 Days Qty: 7 0RF No Action doxycycline hyclate 100 mg tablet 100 mg PO BID Qty: 20 0RF ibuprofen 600 mg tablet 600 mg PO Q8H PRN (Reason: pain) Qty: 20 0RF oxycodone 5 mg tablet 5 mg PO Q4-6H PRN (Reason: pain) Qty: 5 0RF Rx Instructions: Patient may request fewer tablets than prescribed oseltamivir [Tamiflu] 75 mg capsule 75 mg PO Q12H 5 Days Qty: 10 0RF ibuprofen 600 mg tablet 600 mg PO TID PRN (Reason: fever or pain) Qty: 20 0RF omeprazole 40 mg capsule,delayed release(DR/EC) 40 mg PO DAILY Qty: 30 0RF levofloxacin 750 mg tablet 750 mg PO DAILY 7 Days Qty: 7 0RF doxycycline hyclate 100 mg capsule 100 mg PO BID 10 Days Qty: 20 0RF ondansetron 4 mg tablet,disintegrating 4 mg PO Q8H PRN (Reason: nausea and vomiting) Qty: 20 0RF cyclobenzaprine 5 mg tablet 5 mg PO Q8H Qty: 7 0RF lidocaine [Lidoderm] 5 % adhesive patch,medicated 1 patch topical DAILY Qty: 15 0RF Rx Instructions: leave on most painful area for up to 12 hrs Referrals: [facility] Orthopedic Surgeons [Provider Group] (Call to establish and follow up with an orthopedic provider. ) Sherrill Breen NP [Primary Care Provider] - Stand Alone Forms: Work/School Release Interventions: ED Discharge Assessment Last Done: 11/15/24 12:24 Discharge Date/Time: 11/15/24 12:28 Print Language: Emirati
[2024-11-15 11:29] VITALS: BP 141/100; PULSE 99; RESP 18; TEMP 36.3; O2SAT 97; BMI 43.3
[2024-11-15] MEDS: Ketorolac Tromethamine 15 MG/ML VIAL IM (11:56)
[2024-11-15 12:24] VITALS: BP 141/100; PULSE 99; RESP 18; TEMP 36.3; O2SAT 97
== END 2024-11-15 12:28 | disposition home or self-care (01) ==
PROVIDERS: Emergency Provider Emergency Medicine; PCP Nurse Practitioner Primary Care
DX: S49.91XA Unspecified injury of right shoulder and upper arm, initial encounter (principal); X58.XXXA Exposure to other specified factors, initial encounter; Y93.9 Activity, unspecified; Y92.9 Unspecified place or not applicable; Y99.9 Unspecified external cause status; M25.511 Pain in right shoulder
CPT/HCPCS: 73030; 96372; 99283; 99284; J1885

== ENCOUNTER → 2024-11-15 11:30 | Outpatient (BNV) | payer MEDICAID, SELFPAY | PROVIDERS: Emergency Provider Emergency Medicine; PCP Nurse Practitioner Primary Care; Visit Provider Radiology Vascular & Interventional Radiology | DX: M25.511 Pain in right shoulder (principal) | CPT/HCPCS: 73030 ==

== ENCOUNTER 2024-12-07 12:44 | Outpatient (AMB) | payer MEDICAID, SELFPAY ==
[2024-12-07 13:03] VITALS: BMI 42.5
--- NOTE | 2024-12-07 13:03 | A.OFFVIS_ITS ---
Vital Signs 12/07/24 13:03 Height 5 ft 3 in Weight 240 lb BMI 42.5 Intake Visit Reasons: ER f/u Right RTC injury DOI 11/14/24 Intake Note: Merlin is a 34 year old right hand dominant male who presents today for an emergency department follow up for his right shoulder injury. Patient reports on 11/14/24 he was lifting a heavy box when he felt and heard a pop in the right shoulder resulting in immediate pain. States he has had this pain in the past. Currently state he has weakness, radiating sharp shooting pain down his arm and is not able to do any heavy lifting. He has numbness and tingling that comes and goes throuht out the day time. No EMG done. Allergies vancomycin Allergy (Verified 12/07/24 13:07) Itching HPI HPI ER f/u Right RTC injury DOI 11/14/24: Details: Melrin is a 34 year old right hand dominant male who presents today for an emergency department follow up for his right shoulder injury. Patient reports that in the ED he stated that on 11/14/24 he was lifting a heavy box when he felt and heard a pop in the right shoulder resulting in immediate pain. However, in the office today, the patient states that this pain started months ago, in approximately July, and has been ongoing since that time.. Currently state he has weakness, radiating sharp shooting pain down his arm and is not able to do any heavy lifting. He has numbness and tingling that comes and goes throuht out the day time. No EMG done. [facility] Surgical History S/P appendectomy History of bladder surgery Social History Alcohol intake: never Patient Tobacco Use Status: Never used Tobacco Review of Systems Const All systems reviewed & are unremarkable except as noted in HPI and below Physical Exam Vital Signs: BMI result Body Mass Index 42.5 Extrem Other: Patient's right shoulder normal to inspection No erythema, ecchymosis, edema noted No lacerations, abrasions, open areas No evidence of infection Patient reports diffuse tenderness to palpation of the right shoulder Patient is able to forward flex the right shoulder to approximately 100 degrees, reports pain at this level and severe pain beyond External rotation to 40 degrees of right shoulder , 60 degrees of the left 5/5 empty can bilaterally 5/5 belly press bilaterally 5/5 lift-off bilaterally Positive Wyatt on the right Distal sensation intact Capillary refill brisk Results Reviewed Results Reviewed: X-rays obtained in the ED and independently reviewed by me, Ranjit Vega PA-C, demonstrate no fracture or acute bony abnormality of the right shoulder. Assessment & Plan Assessment & Plan (1) Internal derangement of right shoulder: Code(s): M24.811 - Other specific joint derangements of right shoulder, not elsewhere classified Category: Medical Plan 1. Internal derangement of right shoulder Patient is educated about this condition Patient is educated about the treatment options available At this time, patient is referred to physical therapy for range of motion, str engthening, periscapular stabilization of the right shoulder Patient is also ordered EMG and nerve conduction study to assess the numbness and tingling in his right hand Patient is amenable to this plan Follow-up after EMG and nerve conduction study Orders: Orders PT Evaluation and Treatment Today M24.811 - Other specific joint derangements of right shoulder, not elsewhere classified NE electromyogram (EMG) Today R20.0 - Anesthesia of skin, R20.2 - Paresthesia of skin NE nerve conduction velocity Today R20.0 - Anesthesia of skin, R20.2 - Paresthesia of skin Medications: Discontinued doxycycline hyclate Discontinued Reason: Patient Completed Course 100 mg PO BID 20 tabs 0RF levofloxacin Discontinued Reason: Patient Completed Course 750 mg PO DAILY 7 days 7 tabs 0RF doxycycline hyclate Discontinued Reason: Patient Completed Course 100 mg PO BID 10 days 20 caps 0RF cyclobenzaprine Discontinued Reason: Patient Completed Course 5 mg PO Q8H 7 tabs 0RF cyclobenzaprine Discontinued Reason: Patient Completed Course 5 mg PO TID 7 days PRN 21 tabs 0RF pain Coding Level of Care Code New Pt Level 3 (48628) Diagnoses Internal derangement of right shoulder M24.811
--- OUTSIDE RECORDS SUMMARY | 2024-12-07 14:04 | XMS_ITS | Encounter Summary ---
Author Organization [employer] Address [address] [place] [address] Care Team Providers Care Lead Applier Name Role Phone Sherrill Breen Primary Care Provider [phone] Reason for Visit * Reason Onset Date Comments Appointment 12/26/2022 Encounter Details Date Type Department Care Team ([facility] st Contact Info) Description 12/26/2022 Telephone [facility] [address] [place] [address] Norris Kilgore DDS [address] [place] [address] Appointment Social History Tobacco Use Types Packs/Day Years Used Date Smoking Tobacco: Never Assessed Sex and Gender Information Value Date Recorded Sex Assigned at Male 04/16/2022 10:39 AM EDT Legal Sex Male 10:39 AM EDT Gender Identity Male 04/16/2022 10:39 AM EDT Sexual Orientation Choose not to disclose 2021 10:39 AM EDT documented as of this encounter Miscellaneous Notes * Telephone Encounter - Chelsey Bhatia - 12/26/2022 9:24 AM EDT Patient has been on waiting list for comp exam in [facility] since 08/2021. Checking in on status of appt DR documented in this encounter Plan of Treatment Not on file documented as of this encounter Visit Diagnoses Not on filedocumented in this encounter Care Teams Lead Applier Relationship Specialty Start Date End Date Sherrill Breen ANP [address] [place] [address] PCP - General Family Medicine 07/17/21 documented as of this encounter
== END 2024-12-07 13:33 | disposition home or self-care (01) ==
LOC: HO.HOS 12:44
PROVIDERS: PCP Nurse Practitioner Primary Care
DX: M24.811 Other specific joint derangements of right shoulder, not elsewhere classified (principal)
CPT/HCPCS: 99203

== ENCOUNTER → 2024-12-07 12:44 | Outpatient (BNVA) | payer MEDICAID, SELFPAY | PROVIDERS: PCP Nurse Practitioner Primary Care | DX: M24.811 Other specific joint derangements of right shoulder, not elsewhere classified (principal); R20.0 Anesthesia of skin; R20.2 Paresthesia of skin | CPT/HCPCS: 99212 ==

== ENCOUNTER → 2024-12-16 10:14 | Outpatient (REF) | payer MEDICAID, SELFPAY ==
--- OUTSIDE RECORDS SUMMARY | 2024-12-16 10:48 | XMS_ITS | Encounter Summary ---
Author Organization [employer] Address [address] [place] [address] Care Team Providers Care Movable Bulkhead Installer Name Role Phone Sherrill Breen Primary Care Provider [phone] Reason for Visit * Reason Onset Date Comments Appointment 12/26/2022 Encounter Details Date Type Department Care Team ([facility] st Contact Info) Description 12/26/2022 Telephone [facility] [address] [place] [address] Norris Kilgore DDS [address] [place] [address] Appointment Social History Tobacco Use Types Packs/Day [...] on waiting list for comp exam in [facility] since 08/2021. Checking in on status of appt DR documented in this encounter Plan of Treatment Not on file documented as of this encounter Visit Diagnoses Not on filedocumented in this encounter Care Teams Movable Bulkhead Installer Relationship Specialty Start Date End Date Sherrill Breen ANP [address] [place] [address] PCP - General Family Medicine 07/17/21 documented as of this encounter
== END ==
LOC: HO.SL 10:14
PROVIDERS: PCP Nurse Practitioner Primary Care; Visit Provider Nurse Practitioner Primary Care
DX: G47.33 Obstructive sleep apnea (adult) (pediatric) (principal); R40.0 Somnolence; R06.83 Snoring
CPT/HCPCS: 95806

== ENCOUNTER 2025-01-22 14:52 | Outpatient (REF) | payer MEDICAID, SELFPAY ==
--- NOTE | 2025-01-22 14:54 | EMG_ITS ---
Chief complaint: Right arm pain, numbness in 1st to 3rd digits Reason for referral: Evaluate for Carpal Tunnel Syndrome Referred by: Ranjit HAYNES Procedure done: Right upper extremity NCS/EMG Precautions and/or limitations: None The limb temperature was monitored continuously and remained between 32-36 degrees C during the performance of the NCS. Nerve Conduction Studies Anti Sensory Summary Table ?Stim Site NR Onset (ms) Norm Onset (ms) Peak (ms) Norm Peak (ms) O-P Amp (?V) Norm O-P Amp Site1 Site2 Delta-0 (ms) Dist (cm) Delroy (m/s) Norm Delroy (m/s) Right Median Anti Sensory (2nd Digit) Wrist ? 4.3 5.7 <3.6 6.9 >10 Wrist 2nd Digit 4.3 14.0 33 Right Radial Anti Sensory (Thumb) Forearm ? 1.4 1.9 <3.1 20.7 Forearm Thumb 1.4 0.0 Right Ulnar Anti Sensory (5th Digit) Wrist ? 1.0 2.8 <3.7 21.5 >15.0 Wrist 5th Digit 1.0 14.0 140 Motor Summary Table ?Stim Site NR Onset (ms) Norm Onset (ms) O-P Amp (mV) Norm O-P Amp iAmp (mV) Amp (1st) (%) Site1 Site2 Delta-0 (ms) Dist (cm) Delroy (m/s) Norm Delroy (m/s) Right Median Motor (Abd Poll Brev) Wrist ? 5.9 <3.9 12.7 >4.5 15.4 100.0 Elbow Wrist 3.7 20.0 54 >45 Elbow ? 9.6 10.5 12.7 82.7 Right Ulnar Motor (Abd Dig Minimi) Wrist ? 2.3 <3.0 9.4 >5 10.6 100.0 B Elbow Wrist 3.4 19.0 56 >45 B Elbow ? 5.7 8.3 9.8 88.3 A Elbow B Elbow 1.0 10.0 100 >45 A Elbow ? 6.7 8.3 9.8 88.3 EMG ?Side Muscle Nerve Root Ins Act Fibs Psw Amp Dur Poly Recrt Int Pat Comment Right 1stDorInt Ulnar C8-T1 Nml Nml Nml Nml Nml 0 Nml Complete Right FlexCarRad Median C6-7 Nml Nml Nml Nml Nml 0 Nml Complete Right Biceps Musculocut C5-6 Nml Nml Nml Nml Nml 0 Nml Complete Right Triceps Radial C6-7-8 Nml Nml Nml Nml Nml 0 Nml Complete Right Deltoid Axillary C5-6 Nml Nml Nml Nml Nml 0 Nml Complete FINDINGS: Right median motor nerve showed prolonged distal latency, normal amplitude and normal conduction velocity. Right median sensory nerve showed prolonged peak latency and small amplitude. All other nerves tested were within normal. Concentric needle EMG was performed in selected muscles of the right upper extremity. Study did not reveal signs of electric abnormalities as shown in the table above. IMPRESSION: 1. This is an abnormal study. 2. There is electrodiagnostic evidence for right moderate-severe median neuropathy at the wrist, consistent with carpal tunnel syndrome. 3. There is no electrodiagnostic evidence for ulnar neuropathy, brachial plexopathy, or cervical radiculopathy. Thank you for your kind referral. Jaclyn Win MD, JULIO Board Certified, [place] [employer] and Rehabilitation (ABPMR) Board Certified, [place] Board of Electrodiagnostic Medicine (ABEM) CODIN 26200 MTDD
== END 2025-01-22 14:53 | disposition home or self-care (01) ==
LOC: HO.NEURO 14:52
PROVIDERS: PCP Nurse Practitioner Primary Care
DX: R20.0 Anesthesia of skin (principal); R20.2 Paresthesia of skin; R94.131 Abnormal electromyogram [EMG]
CPT/HCPCS: 95886; 95909

== ENCOUNTER → 2025-01-22 14:54 | Outpatient (BNV) | payer MEDICAID, SELFPAY | PROVIDERS: PCP Nurse Practitioner Primary Care; Visit Provider Physical Medicine & Rehabilitation | DX: G56.01 Carpal tunnel syndrome, right upper limb (principal); G62.89 Other specified polyneuropathies | CPT/HCPCS: 95886; 95909 ==

== ENCOUNTER 2025-02-04 11:13 | Outpatient (RCR) | payer MEDICAID, SELFPAY ==
--- NOTE | 2024-12-31 17:32 | MHC.PT.EP ---
[facility] [place] [facility] [place] [facility] [place] [facility] [address] Caridad Machado [address] [phone] F: [phone] F: [phone] F: [phone] F: [phone] Physical Therapy Plan of Care Date of Evaluation: 12/29/24 Date of Surgery: Diagnosis: Other specific joint derangements f R shoulder; Sp instructions for range of motion, strengthening, periscapular stabilization of the right shoulder Assessment: Pt is a 34 y/o male referred to PT for eval and treat of Other specific joint derangements f R shoulder with Sp instructions for range of motion, strengthening, and periscapular stabilization of the right shoulder; his condition is resulting in decreased tolerance and ability for reaching high shelves, reaching his back and neck for hygiene and dressing, lifting objects of weight, and laying on his R side secondary to decreased R shoulder ROM and strength, painful muscle testing, TTP of anterior R shoulder joint, protracted scapular posture R hand n/t Sx, and pain with activity. Pt is deemed an appropriate candidate to receive skilled PT services to address their physical impairments in order to improve their functional ability. Frequency and Duration: The patient will be seen 2 x/ wk x 6 wks. Short Term Goals: Initiate home program. improve baseline pain to < 4/10; initial: 6/10. R hand symptom abolished. Surgery Assistant Goals: Pt will be able to dress pullovers with managed Sx. Pt will be able to place objects on high shelf with managed Sx. SPADI outcome measure will improve by at least 9 points. Treatment Plan: Modalities to reduce pain, spasms and effusion. Manual therapy to restore motion and function. Therapeutic exercise to improve strength and flexibility. Neuromuscular re-education for posture and balance. Therapeutic activities to return to functional activities of daily living. Electronically signed by: Kike Arredondo PT. Please sign and return to therapist. Thank you for your referral.
== END 2025-06-07 10:25 | disposition home or self-care (01) ==
LOC: HO.PT 11:13
PROVIDERS: PCP Nurse Practitioner Primary Care
DX: M24.811 Other specific joint derangements of right shoulder, not elsewhere classified (principal)
CPT/HCPCS: 97012; 97014; 97035; 97110; 97140; 97161

== ENCOUNTER 2025-03-03 14:44 | Outpatient (AMB) | payer MEDICAID, SELFPAY ==
--- NOTE | 2025-03-03 15:02 | A.OFFVIS_ITS ---
Vital Signs 03/03/25 15:06 Height 5 ft 3 in Weight 240 lb BMI 42.5 Handedness Right Intake Visit Reasons: OV-Rt hand EMG review Intake Note: Merlin is a 34 year old right hand dominant man who presents today for a follow up and an EMG/NCS review of his right upper extremity. Patient would like to discuss surgery. EMG/NCS done on 01/22/25 IMPRESSION: 1. This is an abnormal study. 2. There is electrodiagnostic evidence for right moderate-severe median neuropathy at the wrist, consistent with carpal tunnel syndrome. 3. There is no electrodiagnostic evidence for ulnar neuropathy, brachial plexopathy, or cervical radiculopathy. Allergies vancomycin Allergy (Verified 03/03/25 15:02) Itching HPI HPI OV-Rt hand EMG review: Details: Merlin is a 34 year old right hand dominant man who presents today for a follow up and an EMG/NCS review of his right upper extremity. Patient would like to discuss surgery. EMG/NCS done on 01/22/25 IMPRESSION: 1. This is an abnormal study. 2. There is electrodiagnostic evidence for right moderate-severe median neuropathy at the wrist, consistent with carpal tunnel syndrome. 3. There is no electrodiagnostic evidence for ulnar neuropathy, brachial plexopathy, or cervical radiculopathy. [facility] Surgical History S/P appendectomy History of bladder surgery Social History Alcohol intake: never Patient Tobacco Use Status: Never used Tobacco Physical Exam Vital Signs: BMI result Body Mass Index 42.5 Extrem Other: Neuro: Normal sensation of the tips of all digits of bilateral hands in the office today No thenar or intrinsic wasting. Good APB muscle firing and good finger cross. Vascular: Capillary refill brisk. ROM: Patient can make a fist and extend all their digits. Skin: No lacerations or abrasions noted. General: No ecchymosis. No erythema or evidence of infection. Assessment & Plan Assessment & Plan (1) Bilateral carpal tunnel syndrome: Code(s): G56.03 - Carpal tunnel syndrome, bilateral upper limbs Category: Medical Plan 1. Right carpal tunnel syndrome Intermittent, daily, worse at night I educated the patient about the condition. I discussed both operative and nonoperative treatment options. The patient would like to proceed with surgery. The risks and benefits of operative treatment were discussed with the patient and the patient wishes to proceed with surgery. These risks include, but are not limited to, risk of damage to blood vessels, nerves, tendons, infection, recurrence, incomplete relief of preoperative symptoms, persistent pain, possible need for further surgery, and the risks associated with regional blocks and/or anesthesia. Plan is to take the patient to the operating room at some point in the next few weeks for the following procedures: 1. Right carpal tunnel release under local All of the preoperative paperwork including the consent was discussed today. All of the patient's questions were answered in the clinic today. The patient understands that they will be in contact with our outsole scheduler to discuss scheduling their procedure. Patient denies diabetes, blood thinners, asthma, heart issues, lung issues, kidney issues, or current smoking. Medications: Discontinued ibuprofen Discontinued Reason: Patient no longer taking 600 mg PO Q8H PRN 20 tabs 0RF pain oseltamivir Discontinued Reason: Patient no longer taking 75 mg PO Q12H 5 days 10 caps 0RF omeprazole Discontinued Reason: Patient no longer taking 40 mg PO DAILY 30 caps 0RF oxycodone Patient may request fewer tablets than prescribed Discontinued Reason: Patient no longer taking 5 mg PO Q4-6H PRN 5 tabs 0RF pain ibuprofen Discontinued Reason: Patient no longer taking 600 mg PO TID PRN 20 tabs 0RF fever or pain ondansetron Discontinued Reason: Patient no longer taking 4 mg PO Q8H PRN 20 tabs 0RF nausea and vomiting lidocaine 5% leave on most painful area for up to 12 hrs Discontinued Reason: Patient no longer taking 1 patch topical DAILY 15 ea 0RF prednisone Discontinued Reason: Patient no longer taking 20 mg PO DAILY 7 days 7 tabs 0RF Coding Level of Care Code Est Pt Level 4 (64245) Diagnoses Bilateral carpal tunnel syndrome G56.03
[2025-03-03 15:06] VITALS: BMI 42.5
--- OUTSIDE RECORDS SUMMARY | 2025-03-03 18:21 | XMS_ITS | Clinical Summary ---
Author Organization [employer] Address [address] [facility] [address] [place] [address] Care Team Providers Care Stove Tender Name Role Phone Sherrill Breen YFN Primary Care Provider [phone] Allergies No known active allergies Medications famotidine (Pepcid) 20 MG tabletIndication s:Gastroesophage al reflux disease, unspecified whether esophagitis present Take 1 tablet (20 mg) by mouth 2 times daily. 60 tablet 4 Active benzoyl peroxide (PanOxyl Foaming Wash) 10 % external washIndications: Folliculitis Apply topically Once per day. 227 g 3 4 04/03/20 25 Active omeprazole (PriLOSEC) [address] capsuleIndicatio ns:Gastroesophag eal reflux disease, unspecified whether esophagitis present Take 1 capsule twice daily. Do not crush or chew. 180 capsule 1 5 Active Tirzepatide-Weig ht Management (Zepbound) 2.5 MG/0.5ML solution auto-injectorInd ications:Class 3 severe obesity with body mass index (BMI) of 40.0 to 44.9 in adult, unspecified obesity type, unspecified whether serious comorbidity present Inject 0.5 mL (2.5 mg) under the skin 1 (one) time per week. 2 mL 5 Active Active Problems Problem Noted Date Diagnosed Date Chronic fatigue 02/04/2024 Assessment & Plan (02/04/2024 2:06 PM EDT): Blood work ordered I will contact patient with results GERD (gastroesophageal reflux disease) 4 Assessment & Plan (02/04/2024 2:05 PM EDT): I advise patient to avoid NSAIDs, spicy and acid food, I advise to eat at the same time every day, I advise to elevate the head of the bed and take medications as prescribe Dermatitis 02/04/2024 Dysphagia 11/21/2023 Assessment & Plan (11/22/2023 9:06 AM EDT): Pt w chronic oral dysphagia,odynophagia, on and off dysphonia and GERD Normal ENT,neck examination -referred today to ENT for direct visualization -barium swallow test referred today -neck US referred today -to f w PCP in 4 weeks -if no obvious source will need GI referral at next apt for EGD -continue OTC med for GERD helping but advised to bring at next apt to reconcile on med list Periodontal disease 04/09/2023 Dental calculus 04/09/2023 Missing teeth, acquired 04/09/2023 Localized gingival recession 04/09/2023 Inguinal pain 01/08/2023 Assessment & Plan (01/08/2023 11:55 AM EDT): No appreciable inguinal hernia on exam, does have mild left epididymal thickening/prominence Normal cremasteric reflex Will obtain scrotal US and review results with patient when available Chronic bilateral low back pain with right-sided sciatica 08/20/2021 Assessment & Plan (01/08/2023 11:53 AM EDT): Pt without red flag symptoms. Declines medication trials Will start with PT and re-evaluate with PCP after that Immunizations Immunization Administration Dates Next Due Influenza, seasonal, injectable, preservative fr ee 07/07/2024 Tdap 09/11/2022,09/22/2021 Social History Tobacco Use Types Packs/Day Years Used Date Smoking Tobacco: Never Passive Smoke Exposure: Never Smokeless Tobacco: Never Tobacco Cessation:Counseling Given: Not Answered Depression Answer Date Recorded Patient Health Questionnaire-9 Score 7 07/07/2024 Patient Health Questionnaire-9 Score 7 07/07/2024 Last PHQ-9: Questionnaire Data Not on file 0 07/07/2024 Housing Stability Answer Date Recorded What is your housing situation today? I have bianca martinez 01/31/[address] you li ve. Do you have problems with any of the following? None of the above 01/31/2024 Food Insecurity Answer Date Recorded Within the past 12 months, y ou worried that your food would run out before you got money to buy more: Never True 01/31/2024 Within the past 12 months,th e food you bought just didn't last and you didn't have enough money to get more: Never True Transportation Answer Date Recorded In the past 12 months, has l ack of transportation kept you from medical appts, meetings, work or from getting things needed for daily living? No 01/31/2024 Utilities Answer Date Recorded In the past 12 months, has t he electric, gas, oil or water company threatened to shut off services in your home? No 01/31/2024 Depression Answer Date Recorded Patient Health Questionnaire-2 Score 2 07/07/2024 Internet Access Answer Date Recorded Internet Access Q1 Yes 02/14/2024 Internet Access Q2 Not on file 02/14/2024 Sex and Gender Information Value Date Recorded Sex Assigned at Male 04/16/2022 10:39 AM EDT Legal Sex Male 10:39 AM EDT Gender Identity Male 04/16/2022 10:39 AM EDT Sexual Orientation Choose not to disclose 2021 10:39 AM EDT Last Filed Vital Signs Vital Sign Reading Time Taken Comments Blood Pressure 136/83 07/07/2024 10:00 AM EST Pulse 80 07/07/2024 10:00 AM EST Temperature 36.6 C (97.9 F) 07/07/2024 10:00 AM EST Respiratory Rate 14 07/07/2024 10:00 AM EST Oxygen Saturation 98% 07/07/2024 10:00 AM EST Inhaled Oxygen Concentration - - Weight 109 kg (240 lb) 07/07/2024 10:00 AM EST Height 160 cm (5' 3 ) 04/03/2024 12:55 PM EDT Body Mass Index 42.51 04/03/2024 12:55 PM EDT Plan of Treatment Health Maintenance Due Date Last Done Comments Disability Screening 1992 Family Planning (PISQ) 2007 HPV Vaccines (1 - Male 3-dos e series) 2007 Hepatitis B Vaccines (1 of 3 - 19+ 3-dose series) 2011 Dental Oral Exam 07/20/2023 01/16/2023 Dental Prophylaxis 10/10/2023 04/09/2023 Dental X-Ray: Bitewings 01/18/2024 01/16/2023 SDOH Screening 01/30/2025 01/31/2024 COVID-19 Vaccine (1 - 2023-2 5 season) 2025 Influenza Vaccine (#1) 2025 07/07/2024 Alcohol/Substance Use Screening 07/07/2025 07/07/2024 Depression Screening 07/07/2025 07/07/2024, 07/07/2024 Tobacco Screening 07/07/2025 07/07/2024 Dental X-Ray: Full Mouth 01/17/2026 01/16/2023 Lipid Panel 02/03/2029 02/04/2024, 09/21/2021 DTaP/Tdap/Td Vaccines (3 - T d or Tdap) 09/11/2032 09/11/2022, 09/22/2021 Zoster Vaccines (1 of 2) 2042 RSV Patients and Patients Aged 60 years or older (1 - 1-dose 75+ series) 2067 HIV Screening Completed 02/04/2024, 09/21/2021 Hepatitis C Screening Completed 02/04/2024 , 09/21/2021 HIB Vaccines Aged Out No longer eligi ble based on patient's age to complete this topic Hepatitis A Vaccines Aged Out No long er eligible based on patient's age to complete this topic IPV Vaccines Aged Out No longer eligi ble based on patient's age to complete this topic Meningococcal B Vaccine Aged Out No l onger eligible based on patient's age to complete this topic Meningococcal Vaccine Aged Out No gonzalez pedro eligible based on patient's age to complete this topic Pneumococcal Vaccine: Pediatrics (0 to 5 Years) and At-Risk Patients (6 to 49) Years Aged Out No longer eligible b ased on patient's age to complete this topic RSV under 20 months Aged Out No longe r eligible based on patient's age to complete this topic Rotavirus Vaccines Aged Out No longer eligible based on patient's age to complete this topic Procedures Procedure Name Priority Date/Time Associated Diagnosis Comments HEPATITIS PANEL, GENERAL Routine 02/04/2024 2:07 PM EDT Chronic fatigue HIV 1/2 ANTIGEN/ANTIBODY, FOURTH GENERATION W/RFL Routine 02/04/2024 2:07 PM EDT Chronic fatigue LIPID PANEL WITH REFLEX TO DIRECT LDL Routine 02/04/2024 2:07 PM EDT Chronic fatigue PROPHYLAXIS - ADULT Routine 04/09/2023 1 0:00 AM EDT Periodontal disease Dental calculus INTRAORAL - COMPLETE SERIES OF RADIOGRAPHIC IMAGES Routine 01/16/2023 3:00 PM EDT Encounter for dental examination Dental caries COMPREHENSIVE ORAL EVALUATION - NEW OR ESTABLISHED PATIENT Routine 01/16/2023 3:00 PM EDT Encounter for dental examination Dental caries from Last 3 Months or Most Recently Relevant to Health Maintenance Results * (ABNORMAL) Lipid Panel with Reflex to Direct LDL (02/04/2024 2:07 PM EDT) Triglycerides 190(H) <150 mg/dL [facility] Comment:Desirable Triglyceri de: less than 150 mg/dLBorderline High Triglyceride 150-199 mg/dLHigh Triglyceride: 200-499 mg/dLVery High Triglyceride: greater than or equal to 5OO mg/dL Cholesterol 188 <200 mg/dL [facility] Comment:Desirable Cholestero l: less than 200 mg/dLBorderline High Cholesterol: 200-239 mg/dLHigh Cholesterol: greater than 239 mg/dL LDL Cholesterol Calculated 99 <100 mg/dL [facility] Comment:Desirable LDL: less than 100 mg/dLNear Optimal/Above Optimal LDL: 110- 129 mg/dLBorderline High LDL: 130-159 mg/dLHigh LDL: 160-189 mg/dLVery High LDL: greater than or equal to 190 mg/dL HDL Cholesterol 51 >40 mg/dL [facility] Comment:Desirable HDL: great er than 40 mg/dL Note: This HDL assay may give artificially low results in patients with liver disease. Blood 02/04/2024 2:07 PM EDT 02/04/2024 4:00 PM EDT Ese Anaya MD LAB BLOOD ORDERABLES Final Result Performing Organization Address [facility] Co de Phone Number [facility] [address] [place] [phone] * Hepatitis Panel, General (02/04/2024 2:07 PM EDT) Hepatitis A IgM Nonreactive Nonreactive [facility] Comment:IgM antibodies to SY V not detected; does not exclude earlyacute or recovered HAV infection. ~Hepatitis B Surface Antibody NONREACTIVE Nonreactive [facility] Comment:Nonreactive: < 8.00 mIU/mL Hepatitis B Core Antibody Nonreactive Nonreactive [facility] Hepatitis C Antibody Nonreactive Nonreactive [facility] Comment:Antibodies to HCV no t detected; does not exclude early acuteHCV infection. Hepatitis B Surface Ag Negative Negative [facility] Blood 02/04/2024 2:07 PM EDT 02/04/2024 4:00 PM EDT Ese Anaya MD LAB BLOOD ORDERABLES Final Result Performing Organization Address [facility] de Phone Number [facility] [address] [place] [phone] * HIV-1/2 Antigen and Antibodies, Fourth Generation, with Reflexes (02/04/2024 2:07 PM EDT) HIV AB/AG Nonreactive Nonreactive [facility] Comment:HIV-1 p24 Ag and/or HIV-1/HIV-2 Ab not detected.A test result that is nonreactive does not exclude thepossibility of exposure to or infection with HIV-1 and/orHIV-2. Nonreactive results in this assay for individualswith prior exposure to HIV-1 and/or HIV-2 may be due toantigen and antibody levels that are below the limit ofdetection of this assay.The [employer] HIV Ag/Ab Combo assay result andsupplemental assay results should be interpreted inconjunction with the patient's clinical presentation,history and other laboratory results. If the results areinconsistent with clinical evidence, additional testing issuggested to confirm the result. Blood Venous blood specimen / Unknown 02/04/2024 2:07 PM EDT 02/04/2024 4:00 PM EDT us Ese Anaya MD LAB BLOOD ORDERABLES Final Result [facility] [address] [place] [phone] [phone] from Last 3 Months or Most Recently Relevant to Health Maintenance Insurance [facility] C3 DENTAL-[facility] MEDICAID STAND ADULT Care Teams Stove Tender Relationship Specialty Start Date End Date Sherrill Breen ANP [address] [place] [phone] PCP - General Family Medicine 07/17/21
--- OUTSIDE RECORDS SUMMARY | 2025-03-03 18:21 | XMS_ITS | Encounter Summary ---
Author Organization [employer] Address [address] [facility] 7[address] [place] [address] Care Team Providers Care Seafood Technology Specialist Name Role Phone Sherrill Breen Primary Care Provider [phone] Encounter Details Date Type Department Care Team ([facility] st Contact Info) Description 04/26/2023 Abstract [facility] ADULT DENTAL [address] [place] [address] Norris Kilgore DDS [address] [place] [address] Social History Tobacco Use Types Packs/Day Years Used Date Smoking Tobacco: Never Passive Smoke Exposure: Never Smokeless Tobacco: Never Sex and Gender Information Value Date Recorded Sex Assigned at Male 04/16/2022 10:39 AM EDT Legal Sex Male 10:39 AM EDT Gender Identity Male 04/16/2022 10:39 AM EDT Sexual Orientation Choose not to disclose 2021 10:39 AM EDT documented as of this encounter Plan of Treatment Not on file documented as of this encounter Visit Diagnoses Not on filedocumented in this encounter Care Teams Seafood Technology Specialist Relationship Specialty Start Date End Date Sherrill Breen ANP [address] [place] [address] PCP - General Family Medicine 07/17/21 documented as of this encounter
--- OUTSIDE RECORDS SUMMARY | 2025-03-03 18:21 | XMS_ITS | Encounter Summary ---
Author Organization [employer] Address [address] [facility] [address] [place] [address] Care Team Providers Care Traffic Expert Name Role Phone Sherrill Breen Primary Care Provider [phone] Reason for Visit * Reason Onset Date Comments Appointment 12/26/2022 Encounter Details Date Type Department Care Team ([facility] st Contact Info) Description 12/26/2022 Telephone [facility] ADULT DENTAL [address] [place] [address] Norris Kilgore DDS [address] [place] [address] Appointment Social History Tobacco Use Types Packs/Day [...] on waiting list for comp exam in [facility] since 08/2021. Checking in on status of appt DR documented in this encounter Plan of Treatment Not on file documented as of this encounter Visit Diagnoses Not on filedocumented in this encounter Care Teams Traffic Expert Relationship Specialty Start Date End Date Sherrill Breen ANP [address] [place] [address] PCP - General Family Medicine 07/17/21 documented as of this encounter
--- OUTSIDE RECORDS SUMMARY | 2025-03-03 18:21 | XMS_ITS | Encounter Summary ---
Author Organization [employer] Address [address] [facility] 7t [place] [address] Care Team Providers Care Field Crop Farming Supervisor Name Role Phone Sherrill Breen Primary Care Provider [phone] Reason for Visit * Reason Onset Date Comments Appointment Request 03/31/2024 Encounter Details Date Type Department Care Team ([facility] Contact Info) Description 03/31/2024 Telephone [facility] MEDICINE [address] [place] [address] Sherrill Breen ANP [address] [place] [address] Appointment Request Social History Tobacco Use Types Packs/Day Years Used Date Smoking Tobacco: Never Passive Smoke Exposure: Never Smokeless Tobacco: Never Housing Stability Answer Date Recorded What is [...] off services in your home? No 01/31/2024 Internet Access Answer Date Recorded Internet Access [...] encounter Miscellaneous Notes * Telephone Encounter - Letty Ortiz - 03/31/2024 9:07 AM EDT Tc from pt called in to r/s derm appt on 04/03/24. States needs a Morning appt instead of an afternoon due to stating a new job. documented in this encounter Plan of Treatment Not on file documented as of this encounter Visit Diagnoses Not on filedocumented in this encounter Care Teams Field Crop Farming Supervisor Relationship Specialty Start Date End Date Sherrill Breen ANP [address] [place] [phone] PCP - General Family Medicine 07/17/21 documented as of this encounter
== END 2025-03-03 15:23 | disposition home or self-care (01) ==
LOC: HO.HOS 14:44
PROVIDERS: PCP Nurse Practitioner Primary Care
DX: G56.03 Carpal tunnel syndrome, bilateral upper limbs (principal)
CPT/HCPCS: 99214

== ENCOUNTER → 2025-03-03 14:44 | Outpatient (BNVA) | payer MEDICAID, SELFPAY | PROVIDERS: PCP Nurse Practitioner Primary Care | DX: G56.03 Carpal tunnel syndrome, bilateral upper limbs (principal) | CPT/HCPCS: 99212 ==

== ENCOUNTER → 2025-04-05 10:52 | Day surgery (SDC) | payer SELFPAY ==
--- OUTSIDE RECORDS SUMMARY | 2025-03-04 11:29 | XMS_ITS | Encounter Summary ---
Author Organization [employer] Address [address] [facility] [address] [place] [address] Care Team Providers Care Emergency Service Restorer Name Role Phone Sherrill Breen Primary Care Provider [phone] Reason for Visit * Reason Onset Date Comments Appointment Request 03/31/2024 Encounter Details Date Type Department Care Team ([facility] Contact Info) Description 03/31/[address] [facility] MEDICINE [address] [place] [address] Sherrill Breen ANP [address] [place] [address] Appointment Request Social History Tobacco Use Types [...] on filedocumented in this encounter Care Teams Emergency Service Restorer Relationship Specialty Start Date End Date Sherrill Breen ANP [address] [place] [phone] PCP - General Family Medicine 07/17/21 documented as of this encounter
--- OUTSIDE RECORDS SUMMARY | 2025-03-04 11:29 | XMS_ITS | Encounter Summary ---
Author Organization [employer] Address [address] [facility] [address] [place] [address] Care Team Providers Care Microbiology Supervisor Name Role Phone Sherrill Breen Primary Care Provider [phone] Reason for Visit * Reason Onset Date Comments Appointment 12/26/2022 Encounter Details Date Type Department Care Team ([facility] st Contact Info) Description 12/26/2022 Telephone [facility] ADULT DENTAL [address] [place] [address] Norris Kilgore DDS [address] [place] [address] Appointment Social History Tobacco Use Types Packs/Day [...] on waiting list for comp exam in [facility] since 08/2021. Checking in on status of appt DR documented in this encounter Plan of Treatment Not on file documented as of this encounter Visit Diagnoses Not on filedocumented in this encounter Care Teams Microbiology Supervisor Relationship Specialty Start Date End Date Sherrill Breen ANP [address] [place] [address] PCP - General Family Medicine 07/17/21 documented as of this encounter
--- OUTSIDE RECORDS SUMMARY | 2025-03-04 11:29 | XMS_ITS | Encounter Summary ---
Author Organization [employer] Address [address] [facility] 7t [place] [address] Care Team Providers Care Cut Off Machine Unloader Name Role Phone Sherrill Breen Primary Care Provider Encounter Details Date Type Department Care Team ([facility] st Contact Info) Description 04/26/2023 Abstract [facility] ADULT D[facility]AL [address] [place] [address] Norris Kilgore DDS [address] [place] [address] Social History Tobacco Use Types Packs/Day Years [...] on filedocumented in this encounter Care Teams Cut Off Machine Unloader Relationship Specialty Start Date End Date Sherrill Breen ANP [address] [place] [address] PCP - General Family Medicine 07/17/21 documented as of this encounter
--- OUTSIDE RECORDS SUMMARY | 2025-03-04 11:29 | XMS_ITS | Clinical Summary ---
Author Organization [employer] Address [address] [facility] 7t [place] [address] Care Team Providers Care Search Engine Optimization Consultant Name Role Phone Sherrill Breen Primary Care Provider [phone] Allergies No known active allergies Medications famotidine [...] 2:07 PM EDT) Triglycerides 190(H) <150 mg/dL [facility] Comment:Desirable Triglyceri de: less than 150 mg/dLBorderline High Triglyceride 150-199 mg/dLHigh Triglyceride: 200-499 mg/dLVery High Triglyceride: greater than or equal to 5OO mg/dL Cholesterol 188 <200 mg/dL [facility] Comment:Desirable Cholestero l: less than 200 mg/dLBorderline High Cholesterol: 200-239 mg/dLHigh Cholesterol: greater than 239 mg/dL LDL Cholesterol Calculated 99 <100 mg/dL [facility] Comment:Desirable LDL: less than 100 mg/dLNear Optimal/Above Optimal LDL: 110- 129 mg/dLBorderline High LDL: 130-159 mg/dLHigh LDL: 160-189 mg/dLVery High LDL: greater than or equal to 190 mg/dL HDL Cholesterol 51 >40 mg/dL [facility] Comment:Desirable HDL: great er than 40 mg/dL Note: This HDL assay may give artificially low results in patients with liver disease. Blood 02/04/2024 2:07 PM EDT 02/04/2024 4:00 PM EDT Ese Anaya MD LAB BLOOD ORDERABLES Final Result Performing Organization Address [facility] Co de Phone Number [facility] [address] [place] [phone] Hepatitis Panel, General (02/04/2024 2:07 PM EDT) Hepatitis A IgM Nonreactive Nonreactive [facility] Comment:IgM antibodies to SY V not detected; does not exclude earlyacute or recovered HAV infection. ~Hepatitis B Surface Antibody NONREACTIVE Nonreactive [facility] Comment:Nonreactive: < 8.00 mIU/mL Hepatitis B Core Antibody Nonreactive Nonreactive [facility] Hepatitis C Antibody Nonreactive Nonreactive [facility] Comment:Antibodies to HCV no t detected; does not exclude early acuteHCV infection. Hepatitis B Surface Ag Negative Negative [facility] Blood 02/04/2024 2:07 PM EDT 02/04/2024 4:00 PM EDT Ese Anaya MD LAB BLOOD ORDERABLES Final Result Performing Organization Address [facility] de Phone Number [facility] [address] [place] [phone] * HIV-1/2 Antigen and Antibodies, Fourth Generation, with Reflexes (02/04/2024 2:07 PM EDT) HIV AB/AG Nonreactive Nonreactive [facility] Comment:HIV-1 p24 Ag and/or HIV-1/HIV-2 Ab not detected.A test result that is nonreactive does not exclude thepossibility of exposure to or infection with HIV-1 and/orHIV-2. Nonreactive results in this assay for individualswith prior exposure to HIV-1 and/or HIV-2 may be due toantigen and antibody levels that are below the limit ofdetection of this assay.The NanoH2O HIV Ag/Ab Combo assay result andsupplemental assay results should be interpreted inconjunction with the patient's clinical presentation,history and other laboratory results. If the results areinconsistent with clinical evidence, additional testing issuggested to confirm the result. Blood Venous blood specimen / Unknown 02/04/2024 2:07 PM EDT 02/04/2024 4:00 PM EDT us Ese Anaya MD LAB BLOOD ORDERABLES Final Result [facility] [address] [place] [phone] [phone] from Last 3 Months or Most Recently Relevant to Health Maintenance Insurance [facility] C3 DENTAL-[facility] MEDICAID STAND ADULT Care Teams Search Engine Optimization Consultant Relationship Specialty Start Date End Date Sherrill Breen ANP [address] [place] [phone] PCP - General Family Medicine 07/17/21
[2025-04-05 05:45] VITALS: BMI 42.5
[2025-04-05 11:18] VITALS: BP 129/80; PULSE 78; RESP 19; TEMP 36.6; O2SAT 97
--- NOTE | 2025-04-05 11:30 | MHC.SHP ---
Pre-Procedural Eval Section A - 24 Hr Update-Section A only Date of Service: 04/05/25 The patient is an INPATIENT: No Changes since office visit: No Cold of Flu in the past 2 weeks, No New Medical Problems, No Changes in Medication and No Patient answered all questions The patient has been examined within 24 hours of the surgical procedure. The History & Physical has been completed within 30 days and I have reviewed it.: Yes Section B - Complete if H&P > 30 days Chief Complaint: Carpal tunnel syndrome, right upper limb Allergies: Allergies Allergy/AdvReac Type Severity Reaction Status Date / Time vancomycin Allergy Itching Verified 03/03/25 15:02 Plan Diagnosis/Plan: Unchanged I have reviewed the history and physical and performed a pertinent physical examination on my patient. No changes have occurred unless specified. Time Spent With Patient Time: Total time managing care of this patient today ____ minutes.
--- NOTE | 2025-04-05 11:31 | W.PM.OPN ---
Operative Note Operative Note Date of Service: 04/05/25 Narrative: Preop diagnosis: 1. Right Carpal tunnel syndrome Postop diagnosis: same Procedure: 1. Right Carpal tunnel release Surgeon: Meena Harry MD Supervisor Customer Complaint Service: Ranjit HAYNES Anesthesia: local block using 1% lidocaine with epinephrine Findings: Thickened transverse carpal ligament. EBL: Less than 5 mL Specimens: None Complications: None Disposition: Brought to recovery room in stable condition Plan: Follow-up for 10-14 days for wound check and suture removal Indications: The patient is a 34 years old, with right carpal tunnel syndrome that has been unresponsive to nonoperative management. The risks and benefits of operative treatment including but not limited to risk of damage to blood vessels, nerves, tendons, infection, persistent pain, persistent symptoms, or possible need for additional surgery were discussed with the patient and the patient wishes to proceed with surgery. Procedure: Once consent was obtained a local block was performed using a combination of 1% lidocaine with epinephrine. The patient was then brought back to the operating suite and placed on the operative table in supine position. The right upper extremity was prepped and draped in a standard surgical fashion. Once assured that we had a good block, a 2.0 cm longitudinal incision was made centered over the carpal tunnel. The incision was made through the skin to the subcutaneous tissues using a #15 blade. Dissection was made down to the level of the transverse carpal ligament with care being taken to protect the palmar cutaneous nerve. Once the transverse carpal ligament was clearly visualized, a longitudinal incision was made in the transverse carpal ligament 1st using a #15 blade, then using tenotomy scissors under direct visualization. Care was taken to look for and protect the motor branch of the median nerve when seen in this area. Once satisfied with our carpal tunnel release the wound was copiously irrigated with normal saline and hemostasis was obtained with a brief period of local pressure. The skin edges were reapproximated with some 5.0 nylon suture material and a sterile dressing was applied. The patient appears to have tolerated the procedure well and with no complications. All digits were well vascularized at the conclusion of the case.
[2025-04-05 12:58] VITALS: BP 131/83; PULSE 75; RESP 16; O2SAT 98
== END | disposition home or self-care (01) ==
PROVIDERS: PCP Nurse Practitioner Primary Care; Visit Provider Orthopaedic Surgery
PROC: (CPT 64721; principal; 2025-04-05 12:10)
DX: G56.01 Carpal tunnel syndrome, right upper limb (principal); Z88.0 Allergy status to penicillin; Z98.890 Other specified postprocedural states
CPT/HCPCS: 64721; J0165; J2003

== ENCOUNTER → 2025-04-05 10:52 | Outpatient (BNV) | payer SELFPAY | PROVIDERS: PCP Nurse Practitioner Primary Care; Visit Provider Orthopaedic Surgery | DX: G56.01 Carpal tunnel syndrome, right upper limb (principal) | CPT/HCPCS: 64721 ==

== ENCOUNTER 2025-04-20 14:33 | Outpatient (AMB) | payer MEDICAID, SELFPAY ==
--- NOTE | 2025-04-20 14:41 | MHC.OFFVIS ---
Intake Visit Reasons: PO RT CTR 04/05/25 AR Intake Note: Merlin is a 34 year old right hand dominant male who presents today for a Post-Operative Visit status post Right Carpal Tunnel Release performed by Dr. Harry on 04/05/25. At today's visit he states that when he touches his right ring finger he has a jolt of pain that radiates into the right wrist. Allergies vancomycin Allergy (Verified 03/03/25 15:02) Itching HPI HPI PO RT CTR 04/05/25 AR: Details: Merlin is a 34 year old right hand dominant male who presents today for a Post-Operative Visit status post Right Carpal Tunnel Release performed by Dr. Harry on 04/05/25. At today's visit he states that when he touches his right ring finger he has a jolt of pain that radiates into the right wrist. Patient denies any ongoing numbness and tingling in the right hand. No other acute complaints or concerns at this time. Overall, the patient reports that his pain has improved significantly, in his numbness has resolved. [facility] Surgical History S/P appendectomy History of bladder surgery Social History Alcohol intake: never Comment: counts correct Patient Tobacco Use Status: Never used Tobacco Review of Systems Const All systems reviewed & are unremarkable except as noted in HPI and below Physical Exam Extrem Other: Patient is alert, oriented, and in no acute distress. Neuro: Normal sensation of the tips of all digits of the right hand at this time Vascular: Cap refill brisk Pain: No tenderness to palpation about the incision site on volar right wrist No pain with range of motion of the right hand ROM: Patient is able to make a closed fist and extend all digits of the right hand fully Skin: Well approximated and well healing incision site noted on the volar right wrist No lacerations or abrasions. General: No ecchymosis, erythema, or evidence of infection. Psych: Appears grossly normal Affect normal Attitude cooperative Assessment & Plan Assessment & Plan (1) Bilateral carpal tunnel syndrome: Code(s): G56.03 - Carpal tunnel syndrome, bilateral upper limbs Category: Medical Plan 1. Status post right carpal tunnel release DOS 04/05/2025 With good symptomatic resolution postoperatively Patient appears to be recovering well postoperatively Patient is educated about the typical recovery course No under water times one-week, 2 lb weight limit x2 weeks Patient appears to be recovering very well, and requires no further acute follow-up with us postoperatively Patient is educated and worrisome signs and symptoms, and should call us if they experience any of these, including but not limited to redness, swelling, increased pain, and discharge Patient understands this and is amenable to this plan 2. Left carpal tunnel syndrome Symptoms intermittent, daily, worse at night Patient would like to hold off on any operative intervention of the left side for now, as he has had a lot of trouble with his insurance and would like to get this sorted out prior to getting signed up for surgery on the left side Patient will call our office when he is ready to discuss left carpal tunnel release Patient understands this and is amenable to this plan Coding Level of Care Code Global (53168) Diagnoses Bilateral carpal tunnel syndrome G56.03
--- OUTSIDE RECORDS SUMMARY | 2025-04-20 17:35 | XMS_ITS | Encounter Summary ---
Author Organization [employer] Address [address] [facility] 7t [place] [address] Care Team Providers Care Social Media Campaign Manager Name Role Phone Sherrill Breen Primary Care Provider [phone] Reason for Visit * Reason Onset Date Comments Appointment 12/26/2022 Encounter Details Date Type Department Care Team ([facility] st Contact Info) Description 12/26/2022 Telephone [facility] ADULT DENTAL [address] [place] [address] Norris Kilgore DDS [address] [place] [address] Appointment Social History Tobacco Use Types Packs/Day [...] on waiting list for comp exam in [facility] since 08/2021. Checking in on status of appt DR documented in this encounter Plan of Treatment Not on file documented as of this encounter Visit Diagnoses Not on filedocumented in this encounter Care Teams Social Media Campaign Manager Relationship Specialty Start Date End Date Sherrill Breen ANP [address] [place] [address] PCP - General Family Medicine 07/17/21 documented as of this encounter
--- OUTSIDE RECORDS SUMMARY | 2025-04-20 17:36 | XMS_ITS | Clinical Summary ---
Author Organization [employer] Address [address] [facility] 7t [place] [address] Care Team Providers Care Psych Nurse Name Role Phone Sherrill Breen Primary Care Provider Allergies No known active allergies Medications famotidine (Pepcid) 20 MG tabletIndication s:Gastroesophage al reflux disease, unspecified whether esophagitis present Take 1 tablet (20 mg) by mouth 2 times daily. 60 tablet 4 Active omeprazole (PriLOSEC) [address] capsuleIndicatio ns:Gastroesophag eal reflux disease, unspecified whether esophagitis present Take 1 capsule twice daily. Do not crush or chew. 180 capsule 1 5 Active Tirzepatide-Weig ht Management (Zepbound) 2.5 MG/0.5ML solution auto-injectorInd ications:Class 3 severe obesity with body mass index (BMI) of 40.0 to 44.9 in adult, unspecified obesity type, unspecified whether serious comorbidity present (HCC) Inject 0.5 mL (2.5 mg) under the skin 1 (one) time per week. 2 mL 5 Active benzoyl peroxide (PanOxyl Foaming Wash) 10 % external washIndications: Folliculitis Apply topically Once per day. 227 g 3 4 04/03/20 25 Active Problems Problem Noted Date Diagnosed Date [...] 2:07 PM EDT) Triglycerides 190(H) <150 mg/dL [facility] Comment:Desirable Triglyceri de: less than 150 mg/dLBorderline High Triglyceride 150-199 mg/dLHigh Triglyceride: 200-499 mg/dLVery High Triglyceride: greater than or equal to 5OO mg/dL Cholesterol 188 <200 mg/dL [facility] Comment:Desirable Cholestero l: less than 200 mg/dLBorderline High Cholesterol: 200-239 mg/dLHigh Cholesterol: greater than 239 mg/dL LDL Cholesterol Calculated 99 <100 mg/dL [facility] Comment:Desirable LDL: less than 100 mg/dLNear Optimal/Above Optimal LDL: 110- 129 mg/dLBorderline High LDL: 130-159 mg/dLHigh LDL: 160-189 mg/dLVery High LDL: greater than or equal to 190 mg/dL HDL Cholesterol 51 >40 mg/dL [facility] Comment:Desirable HDL: great er than 40 mg/dL Note: This HDL assay may give artificially low results in patients with liver disease. Blood 02/04/2024 2:07 PM EDT 02/04/2024 4:00 PM EDT Ese Anaya MD LAB BLOOD ORDERABLES Final Result Performing Organization Address [facility] Co de Phone Number [facility] [address] [place] [phone] * Hepatitis Panel, General (02/04/2024 2:07 PM EDT) Hepatitis A IgM Nonreactive Nonreactive [facility] Comment:IgM antibodies to SY V not detected; does not exclude earlyacute or recovered HAV infection. ~Hepatitis B Surface Antibody NONREACTIVE Nonreactive [facility] Comment:Nonreactive: < 8.00 mIU/mL Hepatitis B Core Antibody Nonreactive Nonreactive [facility] Hepatitis C Antibody Nonreactive Nonreactive [facility] Comment:Antibodies to HCV no t detected; does not exclude early acuteHCV infection. Hepatitis B Surface Ag Negative Negative [facility] Blood 02/04/2024 2:07 PM EDT 02/04/2024 4:00 PM EDT Ese Anaya MD LAB BLOOD ORDERABLES Final Result Performing Organization Address [facility] de Phone Number [facility] [address] [place] [phone] * HIV-1/2 Antigen and Antibodies, Fourth Generation, with Reflexes (02/04/2024 2:07 PM EDT) HIV AB/AG Nonreactive Nonreactive [facility] Comment:HIV-1 p24 Ag and/or HIV-1/HIV-2 Ab not detected.A test result that is nonreactive does not exclude thepossibility of exposure to or infection with HIV-1 and/orHIV-2. Nonreactive results in this assay for individualswith prior exposure to HIV-1 and/or HIV-2 may be due toantigen and antibody levels that are below the limit ofdetection of this assay.The PDV HIV Ag/Ab Combo assay result andsupplemental assay results should be interpreted inconjunction with the patient's clinical presentation,history and other laboratory results. If the results areinconsistent with clinical evidence, additional testing issuggested to confirm the result. Blood Venous blood specimen / Unknown 02/04/2024 2:07 PM EDT 02/04/2024 4:00 PM EDT Ese Anaya MD LAB BLOOD ORDERABLES Final Result [facility] [address] [place] [address] [phone] from Last 3 Months or Most Recently Relevant to Health Maintenance Insurance [facility] C3 DENTAL-[facility] MEDICAID STAND ADULT Care Teams Psych Nurse Relationship Specialty Start Date End Date Sherrill Breen ANP [address] [place] [phone] PCP - General Family Medicine 07/17/21
--- OUTSIDE RECORDS SUMMARY | 2025-04-20 17:36 | XMS_ITS | Encounter Summary ---
Author Organization [employer] Address [address] [facility] 7t [place] [address] Care Team Providers Care Broadcast Designer Name Role Phone Sherrill Breen Primary Care Provider [phone] Encounter Details Date Type Department Care Team (Late st Contact Info) Description 04/26/2023 Abstract [facility] ADULT DENTAL [address] [place] [address] Norris Kilgore DDS [address] [place] [address] Social History Tobacco Use Types Packs/Day Years [...] on filedocumented in this encounter Care Teams Broadcast Designer Relationship Specialty Start Date End Date Sherrill Breen ANP [address] [place] [address] PCP - General Family Medicine 07/17/21 documented as of this encounter
--- OUTSIDE RECORDS SUMMARY | 2025-04-20 17:36 | XMS_ITS | Encounter Summary ---
Author Organization [employer] Address [address] [facility] 7t [place] [address] Care Team Providers Care Computer Systems Integrator Name Role Phone Sherrill Breen Primary Care Provider [phone] Reason for Visit * Reason Onset Date Comments Appointment Request 03/31/2024 Encounter Details Date Type Department Care Team ([facility] Contact Info) Description 03/31/2024 Telephone [facility] [address] [place] [address] Sherrill Breen ANP [address] [place] [address] Appointment Request Social History Tobacco Use Types [...] on filedocumented in this encounter Care Teams Computer Systems Integrator Relationship Specialty Start Date End Date Sherrill Breen ANP [address] [place] [phone] PCP - General Family Medicine 07/17/21 documented as of this encounter
== END 2025-04-20 15:51 | disposition home or self-care (01) ==
LOC: HO.HOS 14:33
PROVIDERS: PCP Nurse Practitioner Primary Care
DX: G56.03 Carpal tunnel syndrome, bilateral upper limbs (principal)
CPT/HCPCS: 99024

== ENCOUNTER → 2025-04-20 14:33 | Outpatient (BNVA) | payer OTHER, SELFPAY | PROVIDERS: PCP Nurse Practitioner Primary Care | DX: G56.03 Carpal tunnel syndrome, bilateral upper limbs (principal) | CPT/HCPCS: 99212 ==

== ENCOUNTER 2025-06-12 17:50 | Emergency (ER) | payer MEDICAID, SELFPAY ==
[2025-06-12 17:56] VITALS: BP 159/91; PULSE 92; RESP 18; TEMP 36.2; O2SAT 97; BMI 44.9
--- NOTE | 2025-06-12 17:59 | ED_ITS ---
HPI - General Adult General Chief complaint: Abdominal Pain Stated complaint: Bleeding with bowel movements Time Seen by Provider: 06/12/25 22:26 Source: patient Mode of arrival: ambulatory Limitations: no limitations History of Present Illness ED Provider: Dr. Gutiérrez [facility] narrative: 34-year-old male presented hospital today for 2 episodes of bright red rectal bleeding. Patient stated that he had crampy sensation in his abdomen and had a loose bowel movement. He noticed that his stool was bright red with blood. He had a 2nd episode. Today. Not complain of any abdominal pain currently. Patient stated that he came in to get examined due to rectal bleeding. Related Data Previous Rx's ?Medication ?Instructions ?Recorded hydrocodone 5 mg-acetaminophen 325 1 tab PO Q6H PRN pa in #5 tabs 10/20/25 mg tablet Allergies Allergy/AdvReac Type Severity Reaction Status Date / Time vancomycin Allergy Itching Verified 06/12/25 17:59 Review of Systems 2 Review of Systems: Pertinent review of systems as mentioned in HPI. All other system otherwise negative. [facility] Past Medical History [facility] Narrative: None Surgical History S/P appendectomy History of bladder surgery Social History Social History Alcohol intake: never Comment: counts correct Patient Tobacco Use Status: Never used Tobacco Advance Directives: No Advance Directives Information Provided: No Do you have a plan to hurt others: No Plan Physical Exam ED Exam Exam: General: Pleasant, no distress, interacting appropriately Head: Normacephalic, atraumatic ENT: oral mucosa moist, neck supple, no tracheal deviation Cardiovascular: regular rate, regular rhythm, no murmurs, rubbing, gallops Respiratory: CTAB, no wheeze, rales, rhonchi Gastrointestinal: Soft, non distended, left lower quadrant tenderness, no acute surgical abdomen on exam Skin: Warm and dry Psychiatric: Appropriate mood and thoughts Vital Signs: Vital Signs - 24 hr 06/12/25 17:56 Temperature 97.2 F Pulse Rate 92 Respiratory Rate 18 Blood Pressure 159/91 H Pulse Oximetry 97 Oxygen Delivery Method Room Air BMI result Body Mass Index 44.9 Course Course Course Narrative: RME, this is a rapid medical exam performed by Sunil Carson please refer to primary provider for complete H&P- 34-year-old male presents for evaluation of bloody stool. He reports he had some abdominal pain earlier in the noticed bright red blood per rectum twice. Plan for labs and urinalysis. Will defer any potential advanced imaging to primary ER provider Medical Decision Making Medical Decision Making MDM Narrative: A 34-year-old male presented hospital today for abdominal tenderness and bright red rectal bleeding. Patient's hemoglobin is appropriate. No signs of hemorrhagic shock. Hemoglobin 15.9 no leukocytosis I do not think patient has sepsis patient's chemistry did not show any signs of significant abnormality. UA is clear. We will plan to discharge patient with GI follow up for further evaluation of his rectal bleeding at this time. Patient is agreement with this plan all questions were addressed. Differential Diagnosis Differential Diagnoses: The differential diagnosis associated with the presentation includes Ulcerative colitis, rectal bleeding, colitis, diverticular bleed Lab Data MDM Lab Attestation statement: I reviewed the patient's lab results. 06/12/25 18:12 06/12/25 18:12 Labs: Lab Results 06/12/25 Range/Units 18:12 WBC 8.4 (4.8-10.8) X10*3/uL RBC 5.96 H (4.60-5.80) X10*6/uL Hgb 15.9 (14.0-18.0) g/dl Hct 47.6 (42.0-52.0) % MCV 79.9 L (80.0-98.0) fL MCH 26.7 L (27.0-33.0) pg MCHC 33.4 (31.0-36.0) g/dl RDW 13.8 (11.0-16.0) % Plt Count 281 (160-400) X10*3/uL MPV 9.3 L (9.4-12.4) fL Immature Gran % (Auto) 0.2 (0.0-0.4) % Neut % (Auto) 57.3 (45-73) % Lymph % (Auto) 34.1 (20-40) % [place] % (Auto) 7.2 (2-11) % Eos % (Auto) 0.8 (0-4) % Baso % (Auto) 0.4 (0-2) % Lymph # (Auto) 2.9 (1.2-4.9) X10*3/uL [place] # (Auto) 0.6 (0.1-1.2) X10*3/uL Eos # (Auto) 0.1 (0.0-0.4) X10*3/uL Baso # (Auto) 0.0 (0.0-0.2) X10*3/uL Abs Immat Gran (auto) 0.02 (0.00-0.03) X10*3/uL Absolute Neuts (auto) 4.8 (2.0-8.3) x10*3/uL Absolute Nucleated RBC 0.000 (0.0-0.012) X10*3/uL Nucleated RBC % (auto) 0.0 (0.0-0.2) /100WBC Sodium 140 (135-145) mmol/L Potassium 3.5 (3.3-5.1) mmol/L Chloride 108 (96-108) mmol/L Carbon Dioxide 23 (22-29) mmol/L Anion Gap 13 (12-20) BUN 13 (9-16) mg/dL Creatinine 1.17 (0.5-1.4) mg/dL Estim Creat Clear Calc 102.6 Estimated GFR > 60 Random Glucose 144 H (60-115) mg/dL Calcium 9.2 D (8.4-10.2) mg/dL Total Bilirubin 0.5 (0.0-1.0) mg/dL AST 26 (5-37) U/L ALT 41 H (0-40) U/L Alkaline Phosphatase 93 (39-117) U/L Total Protein 7.5 (6.5-8.0) g/dL Albumin 4.5 (3.5-5.0) g/dL Lipase 17 (8-78) U/L Urine Color Yellow Urine Appearance Clear Urine pH 7.0 (5.0-9.0) Ur Specific [place] 1.025 (1.005-1.025) Urine Protein Negative (Neg-Trace) mg/dL Urine Glucose (UA) Negative (Negative) mg/dL Urine Ketones Trace (Negative) mg/dL Urine Blood Negative (Negative) Urine Nitrite Negative (Negative) Ur Leukocyte Esterase Negative (Negative) Urine RBC 0-2 (0-2) /HPF Urine WBC 0-5 (0-5) /HPF Ur Squamous Epith Cells 0-2 (0-2) /HPF Urine Bacteria None Seen (None Seen) Hyaline Casts 0-2 (0-2) /LPF Discharge Plan Discharge Clinical Impression: RB (rectal bleeding) Patient Disposition: Home, Self-Care Instructions: Rectal Bleeding (ED) Additional Instructions: Follow up with the GI team for further rectal bleeding evaluation. Your blood level is stable. L Prescriptions: No Action hydrocodone-acetaminophen 5-325 mg tablet 1 tab PO Q6H PRN (Reason: pain) Qty: 5 0RF Rx Instructions: Partial Fill upon patient request. Referrals: [facility] [Provider Group, Gastroenterology] Referral Note: Rectal bleeding evaluation Print Language: Lithuanian
--- OUTSIDE RECORDS SUMMARY | 2025-06-12 18:19 | XMS_ITS | Encounter Summary ---
Author Organization [employer] Address [address] [facility] [address] [place] [address] Care Team Providers Care Tick Inspector Name Role Phone Sherrill Breen Primary Care Provider Reason for Visit * Reason Onset Date Comments Appointment 12/26/2022 Encounter Details Date Type Department Care Team ([facility] st Contact Info) Description 12/26/2022 Telephone [facility] ADULT D[facility] [address] [place] [address] Norris Kilgore DDS [address] [place] [address] Appointment Social History Tobacco Use Types Packs/Day [...] on waiting list for comp exam in [facility] since 08/2021. Checking in on status of appt DR documented in this encounter Plan of Treatment Not on file documented as of this encounter Visit Diagnoses Not on filedocumented in this encounter Care Teams Tick Inspector Relationship Specialty Start Date End Date Sherrill Breen ANP [address] [place] [address] PCP - General Family Medicine 07/17/21 documented as of this encounter
--- OUTSIDE RECORDS SUMMARY | 2025-06-12 18:19 | XMS_ITS | Encounter Summary ---
Author Organization [employer] Address [address] [facility] [address] [place] [address] Care Team Providers Care Fiber Picker Name Role Phone Sherrill Breen Primary Care Provider [phone] Reason for Visit * Reason Onset Date Comments Appointment Request 03/31/2024 Encounter Details Date Type Department Care Team ([facility] Contact Info) Description 03/31/2024 Telephone [facility] [address] [place] [address] Sherrill Breen ANP [address] [place] [address] Appointment Request Social History Tobacco Use Types [...] on filedocumented in this encounter Care Teams Fiber Picker Relationship Specialty Start Date End Date Sherrill Breen ANP [address] [place] [phone] PCP - General Family Medicine 07/17/21 documented as of this encounter
--- OUTSIDE RECORDS SUMMARY | 2025-06-12 18:19 | XMS_ITS | Clinical Summary ---
Author Organization [employer] Address [address] [facility] [address] [place] [address] Care Team Providers Care Nailhead Setter Name Role Phone Sherrill Breen Primary Care Provider [phone] Allergies No known active allergies Medications famotidine (Pepcid) 20 MG tabletIndication s:Gastroesophage al reflux disease, unspecified whether esophagitis present Take 1 tablet (20 mg) by mouth 2 times daily. 60 tablet 02/04/2024 Active omeprazole (PriLOSEC) [address] capsuleIndicatio ns:Gastroesophag eal reflux disease, unspecified whether esophagitis present Take 1 capsule twice daily. Do not crush or chew. 180 capsule 1 07/07/2024 Active Tirzepatide-Weig ht Management (Zepbound) 2.5 MG/0.5ML solution auto-injectorInd ications:Class 3 severe obesity with body mass index (BMI) of 40.0 to 44.9 in adult, unspecified obesity type, unspecified whether serious comorbidity present (HCC) Inject 0.5 mL (2.5 mg) under the skin 1 (one) time per week. 2 mL 08/17/2024 Active Active Problems Problem Noted Date Diagnosed Date Chronic fatigue 02/04/2024 Assessment & Plan (02/04/2024 2:06 PM EDT): Blood work ordered I will contact patient with results GERD (gastroesophageal reflux disease) Assessment & Plan (02/04/2024 2:05 PM EDT): [...] Screening 01/30/2025 01/31/2024 COVID-19 Vaccine (1 - 2024-2 6 season) 2025 Influenza Vaccine (#1) 2025 07/07/2024 Alcohol/Substance Use Screening 07/07/2025 07/07/2024 Depression Screening 07/07/2025 07/07/2024, 07/07/2024 Tobacco Screening 07/07/2025 07/07/2024 Dental X-Ray: Full Mouth 09/19/2027 025, 01/16/2023 Lipid Panel 02/03/2029 02/04/2024, 09/21/2021 DTaP/Tdap/Td [...] 2:07 PM EDT) Triglycerides 190(H) <150 mg/dL [facility] Comment:Desirable Triglyceri de: less than 150 mg/dLBorderline High Triglyceride 150-199 mg/dLHigh Triglyceride: 200-499 mg/dLVery High Triglyceride: greater than or equal to 5OO mg/dL Cholesterol 188 <200 mg/dL [facility] Comment:Desirable Cholestero l: less than 200 mg/dLBorderline High Cholesterol: 200-239 mg/dLHigh Cholesterol: greater than 239 mg/dL LDL Cholesterol Calculated 99 <100 mg/dL [facility] Comment:Desirable LDL: less than 100 mg/dLNear Optimal/Above Optimal LDL: 110- 129 mg/dLBorderline High LDL: 130-159 mg/dLHigh LDL: 160-189 mg/dLVery High LDL: greater than or equal to 190 mg/dL HDL Cholesterol 51 >40 mg/dL [facility] Comment:Desirable HDL: great er than 40 mg/dL Note: This HDL assay may give artificially low results in patients with liver disease. Blood 02/04/2024 2:07 PM EDT 02/04/2024 4:00 PM EDT us Ese Anaya MD LAB BLOOD ORDERABLES Final Result Performing Organization Address [facility] Co de Phone Number [facility] [address] [place] [address] [phone] * Hepatitis Panel, General (02/04/2024 2:07 PM EDT) Hepatitis A IgM Nonreactive Nonreactive [facility] Comment:IgM antibodies to SY V not detected; does not exclude earlyacute or recovered HAV infection. ~Hepatitis B Surface Antibody NONREACTIVE Nonreactive [facility] Comment:Nonreactive: < 8.00 mIU/mL Hepatitis B Core Antibody Nonreactive Nonreactive [facility] Hepatitis C Antibody Nonreactive Nonreactive [facility] Comment:Antibodies to HCV no t detected; does not exclude early acuteHCV infection. Hepatitis B Surface Ag Negative Negative [facility] Blood 02/04/2024 2:07 PM EDT 02/04/2024 4:00 PM EDT Ese Anaya MD LAB BLOOD ORDERABLES Final Result Performing Organization Address [facility] de Phone Number [facility] [address] [place] [address] [phone] * HIV-1/2 Antigen and Antibodies, Fourth Generation, with Reflexes (02/04/2024 2:07 PM EDT) HIV AB/AG Nonreactive Nonreactive [facility] Comment:HIV-1 p24 Ag and/or HIV-1/HIV-2 Ab not detected.A test result that is nonreactive does not exclude thepossibility of exposure to or infection with HIV-1 and/orHIV-2. Nonreactive results in this assay for individualswith prior exposure to HIV-1 and/or HIV-2 may be due toantigen and antibody levels that are below the limit ofdetection of this assay.The [employer] HIV Ag/Ab Combo assay result andsupplemental assay results should be interpreted inconjunction with the patient's clinical presentation,history and other laboratory results. If the results areinconsistent with clinical evidence, additional testing issuggested to confirm the result. Blood Venous blood specimen / Unknown 02/04/2024 2:07 PM EDT 02/04/2024 4:00 PM EDT Ese Anaya MD LAB BLOOD ORDERABLES Final Result [facility] [address] [place] [address] [phone] from Last 3 Months or Most Recently Relevant to Health Maintenance Insurance [facility] C3 DENTAL-[facility] MEDICAID STAND ADULT Care Teams Nailhead Setter Relationship Specialty Start Date End Date Sherrill Breen ANP [address] [place] [phone] PCP - General Family Medicine 07/17/21
--- OUTSIDE RECORDS SUMMARY | 2025-06-12 18:19 | XMS_ITS | Encounter Summary ---
Author Organization [email or web address] Address [address] [facility] [address] [place] [address] Care Team Providers Care Furnace Reliner Name Role Phone Sherrill Breen Primary Care Provider [phone] Encounter Details Date Type Department Care Team ([facility] st Contact Info) Description 04/26/2023 Abstract [facility] [address] [place] [address] Norris Kilgore DDS [address] [place] [address] Social History Tobacco Use Types Packs/Day Years [...] on filedocumented in this encounter Care Teams Furnace Reliner Relationship Specialty Start Date End Date Sherrill Breen ANP [address] [place] [address] PCP - General Family Medicine 07/17/21 documented as of this encounter
[2025-06-12 18:24] LABS: MANUAL DIFF FLAG NO
[2025-06-12 18:25] LABS: Hematocrit 47.6 % (42.0-52.0); Hemoglobin 15.9 g/dl (14.0-18.0); Imm Gran Abs Auto 0.02 X10*3/uL (0.00-0.03); Imm Gran Pct Auto 0.2 % (0.0-0.4); Lymphocytes Absolute Auto 2.9 X10*3/uL (1.2-4.9); Mean Corpuscular HGB Conc 33.4 g/dl (31.0-36.0); Mean Corpuscular Hemoglobin 26.7 pg (27.0-33.0); Mean Corpuscular Volume 79.9 fL (80.0-98.0); NRBC Abs Auto 0.000 X10*3/uL (0.0-0.012); NRBC Pct Auto 0.0 /100WBC (0.0-0.2); Platelet Count 281 X10*3/uL (160-400); Red Blood Count 5.96 X10*6/uL (4.60-5.80); White Blood Count 8.4 X10*3/uL (4.8-10.8)
[2025-06-12 18:26] LABS: Appearance Urine Clear; Glucose Urine UA Negative (Negative); PH 7.0 (5.0-9.0); Specific Gravity - Urine 1.025 (1.005-1.025)
[2025-06-12 18:42] LABS: Alanine Aminotransferase 41 U/L (0-40); Albumin Level 4.5 g/dL (3.5-5.0); Alkaline Phosphatase 93 U/L (39-117); Anion Gap 13 (12-20); Aspartate Amino Transferase 26 U/L (5-37); Blood Urea Nitrogen 13 mg/dL (9-16); Calcium 9.2 mg/dL (8.4-10.2); Carbon Dioxide 23 mmol/L (22-29); Chloride 108 mmol/L (96-108); Creatinine Clr Calc Pharmacy 102.6; Estimated Glomerular Filt Rate > 60; Lipase 17 U/L (8-78); Potassium 3.5 mmol/L (3.3-5.1); Sodium 140 mmol/L (135-145); Total Protein 7.5 g/dL (6.5-8.0)
== END 2025-06-12 23:42 | disposition home or self-care (01) ==
PROVIDERS: Physician Assistant; Emergency Provider Student in an Organized Health Care Education/Training Program; PCP Nurse Practitioner Primary Care
DX: K62.5 Hemorrhage of anus and rectum (principal); R10.9 Unspecified abdominal pain; Z79.899 Other long term (current) drug therapy
CPT/HCPCS: 36415; 80053; 81001; 83690; 85025; 99282; 99283